=== PATIENT | male | born 1955 | race Caucasian/White ===

== ENCOUNTER → 2017-01-30 | Outpatient (CLI) | payer OTHER ==
[~2017-01-30] MED LIST: CRD2 PO; FERR1TAB23 OR; FISHOIL PO; FLUT0.0529 NAE; GLUCTAB7 PO; LISI-729 PO; MULT-506 PO; NAPR220T40 PO; PSYL1.7W PO
[2017-01-30 10:43] LABS: BLOOD UREA NITROGEN 11 mg/dl (7-18); CALCIUM 8.3 mg/dl (8.5-10.1); CARBON DIOXIDE 28 mmol/L (21-32); CHLORIDE 109 mmol/L (98-107); CREATININE 0.85 mg/dl (0.60-1.40); GLUCOSE 92 mg/dl (70-99); SODIUM 142 mmol/L (136-145)
[2017-01-30 10:46] LABS: CHOLESTEROL 205 mg/dl (0-200); CHOLESTEROL/HDL RATIO 3.8; HDL CHOLESTEROL 54 mg/dl; LDL CHOLESTEROL CALCULATED 126 mg/dl; TRIGLYCERIDES 127 mg/dl (0-150); VERY LOW DENSITY LIPOPROT CALC 25 mg/dl
== END | disposition home or self-care (01) ==
LOC: C.LAB 09:22
PROVIDERS: ATTEND Family Medicine
DX: I10 Essential (primary) hypertension (principal)

== ENCOUNTER → 2017-06-11 | Outpatient (CLI) | payer OTHER ==
--- NOTE | 2017-06-11 14:28 | DIAGNOSTIC IMAGING REPORT ---
KUB CLINICAL HISTORY: N20.0 [id number] nephrocalcinosis COMPARISON STUDY: 03/19/2016 FINDINGS: Unchanging bilateral nephrocalcinosis. No new or interval findings. Nonobstructive bowel pattern. Unchanging postoperative changes low lumbar spine. IMPRESSION: Stable bilateral nephrocalcinosis. No new or interval finding. The above report was generated using voice recognition software. It may contain grammatical, syntax or spelling errors. Electronically signed by: West Montoya M.D. 06/11/2017 2:27 PM Dictated Date/Time: 06/11/2017 2:25 PM
== END | disposition home or self-care (01) ==
LOC: C.RAD 14:03
PROVIDERS: ATTEND Urology
DX: N20.0 Calculus of kidney (principal)

== ENCOUNTER → 2017-06-25 | Outpatient (CLI) | payer OTHER ==
--- NOTE | 2017-06-25 10:38 | DIAGNOSTIC IMAGING REPORT ---
ULTRASOUND KIDNEYS AND BLADDER CLINICAL HISTORY: Nephrolithiasis. COMPARISON STUDY: KUB dated 06/11/2017. TECHNIQUE: Real-time, grayscale, and color flow sonography of the kidneys and bladder is performed. Images are reviewed in the transverse and longitudinal planes. FINDINGS: Kidneys: The kidneys are normal in size and echotexture. The right kidney measures 12.5 x 6.0 x 6.2 cm and the left kidney measures 12.0 x 6.1 x 5.6 cm. There is no hydronephrosis. A 5 mm nonobstructing calculus is suggested in the left kidney. No shadowing right renal calculi are identified. A 1.4 cm cyst is incidentally noted on the right. A septated cyst versus 2 adjacent cysts in the left kidney measures up to 6.2 cm. There is no sonographic evidence of solid mass lesion. No perinephric fluid is identified. Bladder: The prostate gland appears mildly enlarged and there is median lobe hypertrophy. The bladder wall is thickened and trabeculated consistent with chronic outlet obstruction. Bilateral ureteral jets were seen. IMPRESSION: 1. The kidneys are normal in size and without hydronephrosis. 2. A nonobstructing left renal calculus is noted. 3. Prostatomegaly with evidence of chronic bladder outlet obstruction. Electronically signed by: Teo Calderon M.D. 06/25/2017 10:36 AM Dictated Date/Time: 06/25/2017 10:33 AM
== END | disposition home or self-care (01) ==
LOC: C.ULTR 10:00
PROVIDERS: ATTEND Urology
DX: N20.0 Calculus of kidney (principal); N40.1 Benign prostatic hyperplasia with lower urinary tract symptoms

== ENCOUNTER → 2017-11-13 | Outpatient (CLI) | payer OTHER | END | disposition home or self-care (01) | LOC: C.LAB 08:51 | PROVIDERS: ATTEND Family Medicine | DX: E78.5 Hyperlipidemia, unspecified (principal) ==

== ENCOUNTER 2021-06-20 22:01 | Inpatient (IN) ==
[2021-06-20] MEDS ORDERED: SODIUM CHLORIDE 0.9% 1000ML 1,000 ML IV ONE ×2 (22:23→22:24)
[2021-06-20] MEDS ORDERED: STAT IV Infusion **Titration per Protocol STA (22:23)
[2021-06-20] MEDS ORDERED: dilTIAZem HCl 5 MG/ML 5 ML VIAL IV ONE (22:24)
[2021-06-20] MEDS ORDERED: ONDANSETRON INJ 2 MG/ML 2 ML VIAL IV STA (22:27)
[2021-06-20] MEDS ORDERED: ASPIRIN CHEW 324 MG PO STA (22:29)
[2021-06-20] MEDS ORDERED: dilTIAZem HCL 125 MG in DEXTROSE 5% 100 ML IV SCH (22:30)
[2021-06-20 22:57] LABS: iSTAT Creatinine 1.1 mg/dl (0.6-1.3); iSTAT Hemoglobin 10.9 g/dl (14.0-18.0); iSTAT Ionized Calcium 1.14 mmol/l (1.12-1.32)
[2021-06-20 23:01] LABS: INR 1.1 (0.9-1.1); Partial Thromboplastin Ratio 0.8; Partial Thromboplastin Time 21.5 Seconds (21.0-31.0); Prothrombin Time 10.8 Seconds (9.0-12.0)
[2021-06-20 23:04] LABS: Hematocrit (blood only) 31.9 % (42-52); Hemoglobin 9.1 g/dL (14.0-18.0); Mean Corpuscular Hemoglobin 19.2 pg (25-34); Mean Corpuscular Hgb Conc 28.5 g/dL (32-36); Mean Corpuscular Volume 67.3 fL (80-100); Mean Platelet Volume 8.7 fL (7.4-10.4); Platelet Count 442 K/uL (130-400); RDW Coefficient of Variation 17.5 % (11.5-14.5); RDW Standard Deviation 43.1 fL (36.4-46.3); Red Blood Count 4.74 M/uL (4.7-6.1); White Blood Count 9.54 K/uL (4.8-10.8)
[2021-06-20 23:07] LABS: Alanine Aminotransferase 37 U/L (12-78); Albumin Level 3.8 gm/dl (3.4-5.0); Aspartate Aminotransferase 21 U/L (15-37); BUN Creatinine Ratio 18.4 (10-20); Basophils # (auto) 0.06 K/uL (0-0.2); Basophils % (auto) 0.6 %; Bilirubin Direct 0.2 mg/dl (0-0.2); Blood Urea Nitrogen 22 mg/dl (7-18); Calcium 9.1 mg/dl (8.5-10.1); Carbon Dioxide 23 mmol/L (21-32); Chloride 106 mmol/L (98-107); Creatinine Clr Calc Pharmacy 78.6 ml/min; Echinocytes 1+; Est GFR (African American) 76.4 ml/min; Glucose 103 mg/dl (70-99); Hypochromasia Present; Immature Granulocytes # (auto) 0.02 K/uL (0.00-0.02); Immature Granulocytes % (auto) 0.2 %; Lipase 121 U/L (73-393); Lymphocytes # (auto) 1.25 K/uL (1.2-3.4); Lymphocytes % (auto) 13.1 %; Magnesium 1.8 mg/dl (1.8-2.4); Monocytes # (auto) 1.35 K/uL (0.11-0.59); Monocytes % (auto) 14.2 %; Neutrophils # (auto) 6.76 K/uL (1.4-6.5); Neutrophils % (auto) 70.9 %; Ovalocytes 1+; Potassium 3.9 mmol/L (3.5-5.1); Sodium 136 mmol/L (136-145)
[2021-06-20 23:12] LABS: Alkaline Phosphatase 62 U/L (45-117); Bilirubin,Total 0.7 mg/dl (0.2-1); Total Protein 7.3 gm/dl (6.4-8.2); Troponin I < 0.015 ng/ml (0-0.045)
--- NOTE | 2021-06-20 23:23 | Emergency Department Note ---
History of Present Illness General Chief Complaint: Weakness Stated Complaint: WEAK, TIRED, SOB Time Seen by Provider: 06/20/21 22:20 History of Present Illness Provider Complaint: + palpitations Onset (ago): 1 day(s) Duration: + Worsening Severity: moderate Context: + occurred during exertion Arrhythmia history: no atrial fibrillation, no SVT, no on anti-coagulants, no pacemaker, no AICD, no history of ablation or no history of electrical cardioversion Associated symptoms: + shortness of breath, + near-syncope and + nausea; no chest pain, no syncope, no vomiting, no anxiety, no diaphoresis, no cough, no paresthesias, no muscle cramps or no other HPI narrative: Recent kidney stone surgery on Saturday. Has been on liquid diet since then. States he might be dehydrated. No history of any cardiac problems. Home Medications Medication Instructions Recorded Confirmed Type atorvastatin 20 mg tablet 20 mg PO QAM 02/09/19 06/20/21 History doxazosin 2 mg tablet (Cardura) 2 mg PO QPM 02/09/19 06/20/21 History glucosamine-chondroitin 167 mg-133 1 cap PO QAM 02/09/19 06/20/21 History mg capsule lisinopril 5 mg tablet (Zestril) 5 mg PO QAM 02/09/19 06/20/21 History multivitamin 1 tab PO QAM 02/09/19 06/20/21 History omega 8-ylz-gpu-fish oil 1,000 mg 1 cap PO QAM 02/09/19 06/20/21 History (120 mg-180 mg) capsule (Fish Oil) ferrous sulfate 325 mg (65 mg 325 mg PO Q2D 03/20/21 06/20/21 History iron) tablet (iron) naproxen sodium 220 mg capsule 220 mg PO BID PRN 03/20/21 06/20/21 History (Aleve) psyllium husk 0.4 gram capsule 0.8 g PO QAM 03/20/21 06/20/21 History (Metamucil) ciprofloxacin HCl 500 mg tablet 500 mg PO BID #6 tab 06/16/21 06/20/21 Rx (Cipro) tramadol 50 mg tablet 50 mg PO Q6H PRN #20 tab 06/16/21 06/20/21 Rx oxybutynin chloride 5 mg tablet 5 mg PO DAILY #14 tab 06/19/21 06/20/21 Rx Allergies Allergy/AdvReac Type Severity Reaction Status Date / Time codeine Allergy Intermediate Swelling Verified 06/20/21 22:15 Past Med/Surg History Medical History Anemia felt r/t hematuria, no known hx of blood transfusion BPH (benign prostatic hyperplasia) GERD (gastroesophageal reflux disease) Hematuria Hiatal hernia Hyperlipidemia Hypertension Kidney stone Multiple Osteoarthritis Renal cyst R/L (under surveillance) Seasonal allergies Surgical History Fusion of spine Lumbar H/O lumbar discectomy x2 History of arthroscopy Right knee History of bladder surgery (~04/2021) cystolithopaxy History of colonoscopy History of cystoscopy History of esophagogastroduodenoscopy (EGD) History of lithotripsy Multiple History of mandibular surgery + jaw clicking (no locking) History of repair of rotator cuff R/L; Left Shoulder Arthroscopy, Rotator Cuff Repair (04/21/20): LMA#5 + PNB at [facility] [place] History of tonsillectomy History of tooth extraction Family History Father Diabetes Mother Diabetes Other No family history of adverse response to anesthesia Social History Smoking Status: Never smoker Second Hand Exposure: Yes ( KID); Hx Alcohol Use: Yes Alcohol type: wine and hard liquor Hx Substance Use: No Preferred Language: Singaporean Communication Ability: Effective Hearing Ability: Normal [employer] Required: No Beliefs That Will Affect Care: None marital status: Current Living Situation: Spouse current occupational status: employed Feels Safe at Home: Yes Assistive Devices: Glasses Review of Systems A total of 10 systems reviewed and were otherwise negative Physical Exam Vital Signs: Vital Signs - 24 hr 06/20/21 22:05 Temperature 36.6 C Temperature Source Temporal Artery Sc an Pulse Rate 129 H Pulse Rhythm Regular Pulse Strength Normal Respiratory Rate 18 Respiratory Effort / Characteristics Non-Labored Sponta neous Respiratory Depth Normal Respiratory Patter n Regular Blood Pressure 105/66 Blood Pressure Natalee n 79 Blood Pressure Pos ition Sitting Pulse Oximetry 99 Oxygen Delivery Me thod Room Air Sepsis Recent Feve r Within 48 Hours No Sepsis New/Unexpla ined Change in Men christen Status N/A Sepsis Action Take n by Nursing No Action Required Physical Exam: Physical Exam GENERAL: He is oriented to person, place, and time. He appears well-developed and well-nourished. He does not appear distressed. HENT: Exam performed. - Head: Normocephalic and atraumatic. - Right Ear: External ear normal. No mastoid tenderness. - Left Ear: External ear normal. No mastoid tenderness. - Mouth/Throat: The oropharynx is clear and moist. No trismus in the jaw. No dental abscesses or uvula swelling. No oropharyngeal exudate or tonsillar abscesses. EYES: Conjunctivae and EOM are normal. Pupils are equal, round, and reactive to light. Right eye exhibits no discharge. Left eye exhibits no discharge. No scleral icterus. NECK: Normal range of motion. Neck supple. No JVD present. No spinous process tenderness present. No carotid bruit present. No rigidity. No tracheal deviation and normal range of motion present. No Brudzinski's sign and no Kernig's sign noted. CV: Tachycardic rate, irregular rhythm, normal heart sounds and intact distal pulses. There is no peripheral edema. Palpable radial pulses bue. PULM/CHEST: Effort normal and breath sounds normal. No respiratory distress. No stridor. He has no wheezes. He has no rales. - Chest Wall: He exhibits no tenderness. ABD: The abdomen is soft. Bowel sounds are normal. He has no distension. No mass is present. There is no tenderness. There is no rebound, no guarding, no Her's sign and no tenderness at McBurney's point. Rovsig negative. MUSC/SKEL: Normal range of motion. There is no peripheral edema, tenderness or deformity. LYMPH: No cervical adenopathy. NEURO: He is alert and oriented to person, place, and time. He has normal strength. No cranial nerve deficit or sensory deficit. Coordination and gait normal. GCS eye subscore is 4. GCS verbal subscore is 5. GCS motor subscore is 6. Cerebellar tests wnl. SKIN: Skin is warm and dry. He is not diaphoretic. PSYCH: He has a normal mood and affect. Behavior is normal. Judgment and thought content normal. Course Course 222: The patient was evaluated in room B9. A complete history and physical exam was performed Cardiac monitoring: An order was placed for continuous cardiac monitoring. The monitor shows a rate of 90-130 with atrial fibrilation rhythm Patient might be dehydrated as he has been on a liquid diet and had a recent surgery. IV fluids will be ordered for the patient. Patient will started on Cardizem drip For A. fib rate control EMR reviewed. 4 days ago in June 16, 2021 the patient has cystoscopy ureteral nephroscopy retrograde pyelogram and laser destruction of the stone and left insertion of stent catheter by Dr. Arango. Given the patient's recent surgery, will obtain CT of the chest rule out PE as well as CT of the abdomen for his newfound atrial fibrillation 2330: Patient's heart rate is better controlled on the Cardizem drip. Labs are within normal limits. Awaiting CT scans. 2350: Vital signs stable on Cardizem drip. CTA of the chest negative for PE. CT of the abdomen does show that the stent is in appropriate position. Patient's CHADS2 score is 1 for hypertension. No need for heparin at this time. Patient was given aspirin. [facility] onset A. fib. Will discuss case with Dr. Lopez Administered Medications Diltiazem HCl 125 mg/ Dextrose 125 mls @ 5 mls/hr IV .Q24H [facility]; Protocol Stop: 07/20/21 22:29 Last Admin: 06/20/21 22:47 Dose: 5 mg/hr, 5 mls/hr Documented by: [id number] Cosigned by: [id number] Discontinued Medications Aspirin (Aspirin Chew 324 Mg) 324 mg PO NOW STA Stop: 06/20/21 22:30 Last Admin: 06/20/21 23:17 Dose: 324 mg Documented by: [id number] Ioversol (Optiray 320 125ml) 125 ml IV ONCE ONE Stop: 06/20/21 23:27 Last Admin: 06/20/21 23:26 Dose: 118 ml Documented by: [id number] Ondansetron HCl (Ondansetron Inj 2 Mg/Ml 2 Ml Vial) 4 mg IV NOW STA Stop: 06/20/21 22:28 Last Admin: 06/20/21 22:54 Dose: 4 mg Documented by: [id number] Medical Decision Making Laboratory Data Result diagrams: 06/20/21 22:30 06/20/21 22:30 Lab Results 06/20/21 06/20/21 06/20/21 Range/Units 22:30 22:30 22:30 WBC 9.54 (4.8-10.8) K/uL RBC 4.74 (4.7-6.1) M/uL Hgb 9.1 L (14.0-18.0) g/dL POC Hgb (14.0-18.0) g/dl Hct 31.9 L (42-52) % POC Hct (42-52) % MCV 67.3 L (80-100) fL MCH 19.2 L (25-34) pg MCHC 28.5 L (32-36) g/dL RDW Std Deviation 43.1 (36.4-46.3) fL RDW Coeff of Cj 17.5 H (11.5-14.5) % Plt Count 442 H (130-400) K/uL MPV 8.7 (7.4-10.4) fL Immature Gran % (Auto) 0.2 % Neut % (Auto) 70.9 % Lymph % (Auto) 13.1 % Deuel % (Auto) 14.2 % Eos % (Auto) 1.0 % Baso % (Auto) 0.6 % Neut # (Auto) 6.76 H (1.4-6.5) K/uL Lymph # (Auto) 1.25 (1.2-3.4) K/uL Deuel # (Auto) 1.35 H (0.11-0.59) K/uL Eos # (Auto) 0.10 (0-0.5) K/uL Baso # (Auto) 0.06 (0-0.2) K/uL Immature Gran # (Auto) 0.02 (0.00-0.02) K/uL Hypochromasia Present Ovalocytes 1+ Echinocytes 1+ PT 10.8 (9.0-12.0) Seconds INR 1.1 (0.9-1.1) APTT 21.5 (21.0-31.0) Seconds PTT Ratio 0.8 POC Sodium (135-144) mmol/L Sodium 136 (136-145) mmol/L POC Potassium (3.3-5.0) mmol/L Potassium 3.9 (3.5-5.1) mmol/L POC Chloride (101-112) mmol/L Chloride 106 (98-107) mmol/L Carbon Dioxide 23 (21-32) mmol/L POC Total CO2 (24-31) mmol/L Anion Gap 7.0 (3-11) POC Anion Gap (16-25) mmol/L POC BUN (7-18) mg/dl BUN 22 H (7-18) mg/dl Creatinine 1.17 (0.6-1.4) mg/dl POC Creatinine (0.6-1.3) mg/dl Est Cr Clr Drug Dosing 78.6 ml/min Est GFR ( Amer) 76.4 ml/min Est GFR (Non-Af Amer) 66.0 ml/min BUN/Creatinine Ratio 18.4 (10-20) Glucose 103 H (70-99) mg/dl POC Glucose (other) (70-99) mg/dl Lactate (0.4-2.0) mmol/L Calcium 9.1 (8.5-10.1) mg/dl POC Ioniz Calcium Tiki (1.12-1.32) mmol/l Magnesium 1.8 (1.8-2.4) mg/dl Total Bilirubin 0.7 (0.2-1) mg/dl Direct Bilirubin 0.2 (0-0.2) mg/dl AST 21 (15-37) U/L ALT 37 (12-78) U/L Alkaline Phosphatase 62 (45-117) U/L Troponin I < 0.015 (0-0.045) ng/ml Total Protein 7.3 (6.4-8.2) gm/dl Albumin 3.8 (3.4-5.0) gm/dl Lipase 121 (73-393) U/L COVID-19 Eval Order 06/20/21 06/20/21 06/20/21 Range/Units 22:30 22:45 23:18 WBC (4.8-10.8) K/uL RBC (4.7-6.1) M/uL Hgb (14.0-18.0) g/dL POC Hgb 10.9 L (14.0-18.0) g/dl Hct (42-52) % POC Hct 32 L (42-52) % MCV (80-100) fL MCH (25-34) pg MCHC (32-36) g/dL RDW Std Deviation (36.4-46.3) fL RDW Coeff of Cj (11.5-14.5) % Plt Count (130-400) K/uL MPV (7.4-10.4) fL Immature Gran % (Auto) % Neut % (Auto) % Lymph % (Auto) % Deuel % (Auto) % Eos % (Auto) % Baso % (Auto) % Neut # (Auto) (1.4-6.5) K/uL Lymph # (Auto) (1.2-3.4) K/uL Deuel # (Auto) (0.11-0.59) K/uL Eos # (Auto) (0-0.5) K/uL Baso # (Auto) (0-0.2) K/uL Immature Gran # (Auto) (0.00-0.02) K/uL Hypochromasia Ovalocytes Echinocytes PT (9.0-12.0) Seconds INR (0.9-1.1) APTT (21.0-31.0) Seconds PTT Ratio POC Sodium 136 (135-144) mmol/L Sodium (136-145) mmol/L POC Potassium 4.0 (3.3-5.0) mmol/L Potassium (3.5-5.1) mmol/L POC Chloride 102 (101-112) mmol/L Chloride (98-107) mmol/L Carbon Dioxide (21-32) mmol/L POC Total CO2 20 L (24-31) mmol/L Anion Gap (3-11) POC Anion Gap 19.0 (16-25) mmol/L POC BUN 22 H (7-18) mg/dl BUN (7-18) mg/dl Creatinine (0.6-1.4) mg/dl POC Creatinine 1.1 (0.6-1.3) mg/dl Est Cr Clr Drug Dosing ml/min Est GFR ( Amer) ml/min Est GFR (Non-Af Amer) ml/min BUN/Creatinine Ratio (10-20) Glucose (70-99) mg/dl POC Glucose (other) 106 H (70-99) mg/dl Lactate 1.9 (0.4-2.0) mmol/L Calcium (8.5-10.1) mg/dl POC Ioniz Calcium Tiki 1.14 (1.12-1.32) mmol/l Magnesium (1.8-2.4) mg/dl Total Bilirubin (0.2-1) mg/dl Direct Bilirubin (0-0.2) mg/dl AST (15-37) U/L ALT (12-78) U/L Alkaline Phosphatase (45-117) U/L Troponin I (0-0.045) ng/ml Total Protein (6.4-8.2) gm/dl Albumin (3.4-5.0) gm/dl Lipase (73-393) U/L COVID-19 Eval Order Covid19 at [facility] Imaging Data Radiologist's Impression: PreliminaryFindingsOnly See Final Report For Complete Findings CTACHEST: No pulmonaryembolism. Mildlyectatic ascending thoracic aorta measuring up to 4 cm. No dissection. Large hiatal hernia. No acute abnormalitywithin the lungs. Basilar scarring/atelectasis. Radiologist: Elmer Harman MD Study ready at 23:34 and initial results transmitted at 23:41 PreliminaryFindingsOnly See Final Report For Complete Findings CT ABDOMEN & PELVIS Without Contrast: Nephroureteral stent in place on the left and appears appropriatelypositioned. Moderate dilatation of the renal pelvis versus a prominent parapelvic cyst. Fewstoneswithin the left renal collecting system. There are also a fewstones adjacent to the stent within the left ureter, proximallymeasuring 4 mm (image [id number]) and within the mid ureter measuring 3.5 mm(image [id number]). Fewtinystones layering dependentlywithin the bladder. Fat stranding along the left ureter. Fat-containing inguinal hernias. Large hiatal hernia. Colonic diverticulosis. Radiologist: Elmer Harman MD Study ready at 23:30 and initial results transmitted at 23:36 ECG Data Indication: palpitations Rate (beats per minute): 99 Rhythm: atrial fibrillation Findings: no ST depression, no ST elevation or no prolonged QT MDM Narrative 2220: The patient was evaluated in room B9. A complete history and physical exam was performed Cardiac monitoring: An order was placed for continuous cardiac monitoring. The monitor shows a rate of 90-130 with atrial fibrilation rhythm Patient might be dehydrated as he has been on a liquid diet and had a recent surgery. IV fluids will be ordered for the patient. Patient will started on Cardizem drip For A. fib rate control EMR reviewed. 4 days ago in June 16, 2021 the patient has cystoscopy ureteral nephroscopy retrograde pyelogram and laser destruction of the stone and left insertion of stent catheter by Dr. Arango. Given the patient's recent surgery, will obtain CT of the chest rule out PE as well as CT of the abdomen for his newfound atrial fibrillation 2330: Patient's heart rate is better controlled on the Cardizem drip. Labs are within normal limits. Awaiting CT scans. 2350: Vital signs stable on Cardizem drip. CTA of the chest negative for PE. CT of the abdomen does show that the stent is in appropriate position. Patient's CHADS2 score is 1 for hypertension. No need for heparin at this time. Patient was given aspirin. [facility] A. fib. Will discuss case with Dr. Lopez Impression & Plan Atrial fibrillation with RVR Critical Care Time Critical Care Time: Yes Total Critical Care Time: 53 I have personally spent greater than 53 minutes of critical care time in the direct management of this patient. This includes bedside care, interpretation of diagnostic studies, and testing, discussion with consultants, patient, and family members, and other required patient management activities. This 53 minutes is in excess of all separately billable procedures. Discharge Plan Visit Data Chief Complaint: Weakness Stated Complaint: WEAK, TIRED, SOB ED Provider: Emile Segundo Discharge Problem: Atrial fibrillation with RVR Patient Disposition: Admitted As Inpatient Forms Stand Alone Forms: My [facility] Prescriptions Prescriptions: No Action oxybutynin chloride 5 mg tablet 5 mg PO DAILY Qty: 14 RF: 0 multivitamin Tablet 1 tab PO QAM RF: 0 atorvastatin 20 mg Tablet 20 mg PO QAM RF: 0 lisinopril [Zestril] 5 mg tablet 5 mg PO QAM RF: 0 doxazosin [Cardura] 2 mg tablet 2 mg PO QPM RF: 0 omega 3-sim-qyt-fish oil [Fish Oil] 1,000 mg (120 mg-180 mg) Capsule 1 cap PO QAM RF: 0 glucosamine-chondroitin 167-133 mg Capsule 1 cap PO QAM RF: 0 ciprofloxacin HCl [Cipro] 500 mg tablet 500 mg PO BID Qty: 6 RF: 0 tramadol 50 mg tablet 50 mg PO Q6H PRN (Reason: pain) Qty: 20 RF: 0 ferrous sulfate [iron] 325 mg (65 mg iron) Tablet 325 mg PO Q2D RF: 0 naproxen sodium [Aleve] 220 mg Capsule 220 mg PO BID PRN (Reason: Pain) RF: 0 psyllium husk [Metamucil] 0.4 gram Capsule 0.8 g PO QAM RF: 0 Referrals Referrals: Yuval Hammonds MD [Primary Care Provider] -
[2021-06-20] MEDS ORDERED: OPTIRAY 320 125ml IV ONE (23:26)
[2021-06-21 00:21] LABS: Appearance Urine Clear (Clear); Bacteria Urine Automated Negative (Negative); Bilirubin Urine Negative (Negative); Blood Urine 3+ (Negative); Color Urine Yellow; Glucose Urine UA Negative (Negative); Ketones Urine Negative (Negative); Leukocyte Esterase Urine 1+ (Negative); Nitrite Urine Negative (Negative); Protein Urine 1+ (Negative); RBC Urine Automated >30 /hpf (0-4); Specific Gravity Urine 1.039 (1.000-1.030); Urobilinogen Urine Negative (Negative); pH Urine 6.5 (4.5-7.5)
[2021-06-21] MEDS: SODIUM CHLORIDE 0.9% 1000ML 1,000 ML IV SCH ×2 (02:00→09:47)
[2021-06-21] MEDS ORDERED: ACETAMINOPHEN 325 MG TAB PO PRN (02:08)
[2021-06-21] MEDS ORDERED: NITROGLYCERIN SL 0.4 MG/TAB TAB SL PRN (02:08)
[2021-06-21] MEDS ORDERED: ONDANSETRON INJ 2 MG/ML 2 ML VIAL IV PRN (02:08)
[2021-06-21] MEDS ORDERED: traMADol HCL 50 MG TABLET PO PRN (02:08)
--- NOTE | 2021-06-21 03:14 | History and Physical Report ---
DATE OF ADMISSION: 06/21/2021. CHIEF COMPLAINT: Weakness and palpitation. HISTORY OF PRESENT ILLNESS: This is a 65-year-old male with past medical history significant for hyperlipidemia, hypertension, diverticulosis of large intestine, BPH, recurrent kidney stones, bladder stones, iron deficiency anemia due to chronic blood loss, Presents with rapid AFib. The patient works in [employer] here. The patient states last Blaze he had a lithotripsy, he had stent placement on the left side. He had bleeding for a couple of days and he was on liquid diet as recommended by urology for a few days and today is the first time he had solid food. 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 When he turned back, he felt dizzy, palpitations, weak, nauseous, not feeling good and got admitted to the ER and found to be in rapid atrial fibrillation. With the Cardizem drip, his heart rate improved. He is feeling better. He also had a left lower abdominal pain after his lithotripsy when he was trying to micturate and Urology prescribed him oxybutynin, that is helping him, and he has a followup appointment with urology at the end of this month. Denies any fevers. No cough, no chest pain, no shortness of breath, no headache, no blurred visions, no earache, no runny nose, no sore throat, no dysphagia. Currently, no nausea. Was constipated for a few days, but currently moving his bowels okay. Denies any blood in the stool or black stool. Denies any hematuria currently. No swelling in the legs. ALLERGIES: CODEINE. PAST MEDICAL HISTORY: As mentioned above. PAST SURGICAL HISTORY: Left shoulder arthroscopy, colonoscopy with biopsy, EGDs with biopsy, lumbar hemilaminectomy, oral surgery, tonsillectomy, spinal fusion surgery. MEDICATIONS: The patient is on atorvastatin 20 mg p.o. a.m., Cardura 2 mg p.o. p.m., ferrous sulfate 325 mg p.o. q. every other day, glucosamine chondroitin 1 capsule p.o. a.m., lisinopril 5 mg p.o. a.m., multivitamin 1 tablet p.o. a.m., naproxen 220 mg p.o. b.i.d. p.r.n., omega fish oil 1 capsule p.o. a.m., oxybutynin 5 mg p.o. daily, Metamucil 0.8 mg p.o. a.m., tramadol 50 mg p.o. q. 6 hours p.r.n. FAMILY HISTORY: Significant for father has diabetes and hypertension, uncle has diabetes. SOCIAL HISTORY: . No smoking. Alcohol rarely. No drug use. REVIEW OF SYSTEMS: As per HPI. Rest of the review of systems is negative. PHYSICAL EXAMINATION: GENERAL: The patient is of moderate build, not in acute distress. VITAL SIGNS: Temperature 36.6, pulse when he came in was 120, it is currently in 90s, respiratory rate 13, blood pressure 122/88, oxygen 100% on room air. HEENT: Pupils equal, round and reactive to light. Oral mucosa moist. NECK: No JVD, no neck masses. CARDIOVASCULAR: S1 and S2 heard. Irregularly irregular rhythm. No murmur, no gallop. RESPIRATORY SYSTEM: Normal AP diameter. No accessory muscle use. No wheezing, no crackles. ABDOMEN: Soft, bowel sounds present, nontender, no distention. CENTRAL NERVOUS SYSTEM: Cranial nerves II-XII grossly intact, nonfocal. EXTREMITIES: No edema, no erythema. LABORATORY DATA: WBC 9.5, hemoglobin 9.1, hematocrit 31.9, platelets 442. PT 10.8, INR 1.1, APTT 21.5. Sodium 136, potassium 3.9, chloride 106, CO2 of 23, BUN 22, creatinine 1.1, serum glucose 103. Lactate 1.9, calcium 9.1, magnesium 1.8, total bilirubin 0.7, direct bilirubin 0.2, AST 71, ALT 37, alkaline phosphatase 62. Troponin I less than 0.015. Lipase 121. Urinalysis, +1 leukocyte esterase, urine bacteria negative. SARS-CoV-2 PCR negative. IMAGING DATA: CT of the chest, preliminary report unremarkable. CT of abdomen and pelvis, preliminary report, left ureter stent, otherwise no acute findings. ASSESSMENT AND PLAN: This is a 65-year-old male who presents with new-onset atrial fibrillation. 1. New-onset rapid atrial fibrillation: Rate is controlled with IV Cardizem. [id number] score is 1 for hypertension. ER gave aspirin, which will continue. Continue Cardizem drip. Will follow serial enzymes. Will follow the repeat labs. Will follow the echocardiogram.Monitor in tele. Consult cardiology in a.m. for further recommendations. 2. History of iron deficiency anemia with iron deficiency anemia from blood loss: Follows with PCP and on iron supplements.Says had EGD and colonoscopy 3 to 4 years ago, which was unremarkable, and then was on iron supplements and again one year ago he was found to have anemia thought to be from blood loss from his kidney stones. Follow up with PCP. 3. Recurrent kidney stones: Recent lithotripsy and stent placement on the left side. Follow up with urology. 4. Hypertension: Continue lisinopril. 5. Benign prostatic hypertrophy: Continue Cardura. 6. Hyperlipidemia: Continue statin. 7. Deep venous thrombosis prophylaxis: Lovenox. DISPOSITION: Closely monitor in the tele floor. Level 1 full code. Expect to discharge home and follow with family doctor. Job ID: [id number] [facility]Ann
[2021-06-21 05:35] LABS: Hematocrit (blood only) 28.9 % (42-52); Hemoglobin 8.1 g/dL (14.0-18.0); Mean Corpuscular Hemoglobin 19.3 pg (25-34); Mean Platelet Volume 9.1 fL (7.4-10.4); Platelet Count 411 K/uL (130-400); RDW Coefficient of Variation 17.5 % (11.5-14.5); RDW Standard Deviation 44.3 fL (36.4-46.3); Red Blood Count 4.19 M/uL (4.7-6.1); White Blood Count 7.47 K/uL (4.8-10.8)
[2021-06-21 05:54] LABS: Basophils # (auto) 0.03 K/uL (0-0.2); Basophils % (auto) 0.4 %; Eosinophils # (auto) 0.22 K/uL (0-0.5); Eosinophils % (auto) 2.9 %; Hypochromasia Present; Immature Granulocytes # (auto) 0.01 K/uL (0.00-0.02); Immature Granulocytes % (auto) 0.1 %; Lymphocytes # (auto) 1.49 K/uL (1.2-3.4); Lymphocytes % (auto) 19.9 %; Microcytosis Present; Monocytes # (auto) 1.34 K/uL (0.11-0.59); Monocytes % (auto) 17.9 %; Neutrophils # (auto) 4.38 K/uL (1.4-6.5); Neutrophils % (auto) 58.8 %; Ovalocytes 1+; Polychromasia 1+; Tear Drop Cells Occasional
[2021-06-21 06:12] LABS: BUN Creatinine Ratio 19.6 (10-20); Blood Urea Nitrogen 16 mg/dl (7-18); Calcium 8.2 mg/dl (8.5-10.1); Carbon Dioxide 25 mmol/L (21-32); Chloride 110 mmol/L (98-107); Est GFR (Non-African American) 93.2 ml/min; Glucose 126 mg/dl (70-99); Magnesium 2.1 mg/dl (1.8-2.4); Potassium 3.7 mmol/L (3.5-5.1); Sodium 138 mmol/L (136-145); Troponin I < 0.015 ng/ml (0-0.045)
[2021-06-21] MEDS ORDERED: ENOXAPARIN INJ 40 MG/0.4 ML SYR SQ SCH (08:00)
--- NOTE | 2021-06-21 08:20 | CT Scan Report ---
CT angio chest PE protocol HISTORY: 65 years-old Male with ro PE. Acute dizziness with tachycardia TECHNIQUE: Multiple CTA images of the chest were obtained after the intravenous administration of 118 ml Optiray. Coronal and sagittal MIPS were obtained from the axial data set and were submitted for review. All measurements were obtained according to NASCET criteria. A dose lowering technique was u tilized adhering to the principles of ALARA. COMPARISON: CT abdomen and pelvis of same day, chest CT 06/03/2015 FINDINGS: CTA: Mild cardiomegaly. No pericardial effusion. Mild coronary artery calcifications. Mild fusiform dilati on of the ascending thoracic aorta measuring 4.0 cm previously measured 3.7 cm. Otherwise unremarkabl e appearance of the thoracic aorta. Unremarkable pulmonary artery. No pulmonary emboli identified. CT CHEST: Unremarkable thyroid. No adenopathy. No pneumothorax, pleural effusion, airspace consolidation or ove rt pulmonary edema. Mild subsegmental bibasilar atelectasis/scarring, left greater than right. There are no suspicious pulmonary nodules or masses identified. The central airways are patent. Large hiatal hernia. Mild wall thickening of the mid and distal esophagus. 6 mm hypodensity of the he patic dome is too small to characterize, possibly a cyst. Similar-appearing 8 mm hypodense focus of t he left hepatic lobe. Unremarkable soft tissues. There is no acute fracture. Degenerative changes of the spine and shoulders. A left ureteral stent is noted on the handle bender localizer images. IMPRESSION: 1. No acute intrathoracic abnormality. No pulmonary emboli. 2. Cardiomegaly with fusiform mild dilation of the ascending thoracic aorta measuring 4.0 cm. 3. Large hiatal hernia. 4. Left ureteral stent. ACT 112: Negative or not required by law. The above report was generated using voice recognition software. It may contain grammatical, syntax o r spelling errors. Electronically signed by: Renan Jimenez M.D. 06/21/2021 8:19 AM
[2021-06-21] MEDS: lisinopril 5 MG TAB PO SCH (08:27)
[2021-06-21] MEDS: MULTIVITAMIN TAB PO SCH (08:27)
[2021-06-21] MEDS: OXYBUTYNIN CHLORIDE 5 MG TAB PO SCH (08:27)
[2021-06-21] MEDS: ATORVASTATIN 20 MG TAB PO SCH (08:27)
[2021-06-21] MEDS: PSYLLIUM 58.6% POWDER PACKET PO SCH (08:27)
--- NOTE | 2021-06-21 08:31 | CT Scan Report ---
CT SCAN OF THE ABDOMEN AND PELVIS WITHOUT CONTRAST CLINICAL HISTORY: weakness recent ureter stent COMPARISON STUDY: February 08, 2021 TECHNIQUE: CT scan of the abdomen and pelvis was performed from the lung bases to the proximal femurs . Images are reviewed in the axial, sagittal, and coronal planes. IV contrast was not administered fo r this examination. A dose lowering technique was utilized adhering to the principles of ALARA. CT DOSE: 2068.79 mGy.cm FINDINGS: Lower chest: Redemonstration of the large hiatal hernia and compressive atelectasis within left lower lobe. Few linear densities are seen within the right middle lobe and might represent segmental atele ctasis or scarring. Liver: The unenhanced liver is normal in size, contour, and attenuation. There is no intrahepatic jaren iary ductal dilatation. 7 mm hypoattenuating nodule is seen within left lobe of the liver (3/95) Gallbladder: Unremarkable. Spleen: Normal in size and attenuation. Pancreas: Unremarkable. Adrenal glands: Unremarkable. Kidneys: The unenhanced kidneys are normal in size. No hydronephrosis is seen on the right. No definite calcul i are seen within the right renal pelvis. Right ureter is normal in caliber. Punctate calculus is see n within the urinary bladder lumen near right ureterovesicular junction. Moderate hydronephrosis is seen on the left. Few calculi are seen within left renal pelvis. Previousl y seen 1.3 cm calculus within left collecting system is no longer visualized. Also large left extrare nal pelvis is seen. Interval placement of left ureteral stent is seen with its proximal aspect coilin g within left extrarenal pelvis and distal aspect is seen within urinary bladder lumen. Multiple calc gómez are seen within left ureter along course of the stent, largest is measuring 4 mm in size and tyra ed in PACs on series 3. Mild fat stranding surrounds the left ureter and also extend to the left massimo abdomen appears slightly worsening since prior. Small calculus is seen within urinary bladder near ur eter vesicular junction. 2.0 cm right renal cyst is again seen. Bowel: Most of the stomach is seen within hiatal hernia. Bowel loops are nondilated. Normal appendix. Diverticulosis of sigmoid colon without evidence of diverticulitis. Peritoneum: There is no intraperitoneal free air or abdominal ascites. Vasculature: The abdominal aorta is normal in course and caliber. Adenopathy: None. Pelvic viscera: Urinary bladder is fluid-filled. Prostate gland is not significantly enlarged. Bilate ral fat-containing inguinal hernias with mild herniation of anterior aspect of the urinary bladder w ithin the right hernia are unchanged since prior. Skeletal structures: Multilevel degenerative changes of the spine. Sclerotic lesion is seen within L3 vertebral body, unchanged since prior. Laminectomy changes and orthopedic hardware is seen at L4-L5 level. IMPRESSION: 1. Stable hydronephrosis on the left with interval placement of ureteral stent within left collectin g system. The overall decrease amount of the calculi within left renal pelvis. Persistent fat strandi ng surrounding left kidney. 2. Interval worsening of fat stranding surrounding stented left ureter which also extend to the left hemiabdomen. Multiple calculi along the course of the left ureteral stent, largest is measuring 4 mm in size. 3. Few calculi are seen within urinary bladder lumen near anatomical region of the right and left ur eter vesicular junction. Size of the calculi are decreased since prior study. 4. Nondilated loops of bowel. Normal appendix. 5. Diverticulosis without diverticulitis. 6. Bilateral inguinal hernia, redemonstration of mild herniation of the urinary bladder to the right inguinal hernia. 7. Stable large hiatal hernia. 8. The rest of findings as above. ACT 112: Negative or not required by law. The above report was generated using voice recognition software. It may contain grammatical, syntax o r spelling errors. Electronically signed by: Bisi Cole DO 06/21/2021 8:30 AM
[2021-06-21] MEDS ORDERED: GLUCOSAMINE CHONDROITIN PO SCH (09:00)
--- NOTE | 2021-06-21 12:16 | Cardiology Consultation ---
Date of Consultation June 21, 2021 Assessment & Plan (1) Atrial fibrillation with RVR: (2) Kidney stone: (3) Anemia, iron deficiency: Unfortunately, the patient was not anticoagulated on admission due to his recent surgery and history of anemia. He is currently on aspirin 325 mg along w ith a prophylactic dose of Lovenox. His heart rates are controlled with diltiazem. I will switch him over to a beta-kiley and started him on Lopressor 25 mg p.o. twice daily. Once his heart rates are controlled with the beta-kiley you can discontinue the diltiazem. I have asked urology to see him and comment on anticoagulation. If they feel that it is safe for him to be fully anticoagulated then the scenario would change. If he cannot be fully anticoagulated then he will have to remain on rate control and aspirin only. I will review his echocardiogram that was completed this morning. His cardiac markers have been negative. 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 He has no significant cardiac history. He does have a history of chronic anemia for several years which has been extensively evaluated including endoscopy and colonoscopy without a complete diagnosis. More recently he was noted to have kidney stones and it was suggested that perhaps he was having slow bleeding which resulted in his chronic iron deficiency anemia. He was seen by urology and underwent lithotripsy on Saturday. He was discharged and did well over the weekend. He came to work yesterday feeling well and then while helping with the patient he suddenly felt queasy and lightheaded. He went to the emergency department where he was noted to be in new onset atrial fibrillation with RVR. He was started on IV diltiazem which controlled his heart rate and he felt better. Unfortunately he was not fully anticoagulated on admission due to his recent lithotripsy and history of anemia he was only started on aspirin 325 mg daily along with Lovenox for prophylaxis of DVT. The patient has had no previous episodes of atrial fibrillation. He has had no recent cardiac symptoms and denies dizziness or lightheadedness. He denies heart palpitations or tachycardia. No activity related chest pain or shortness of breath. He has no history of diabetes, hypertension or hypercholesterolemia. He is a non-smoker. Allergies Allergy/AdvReac Type Severity Reaction Status Date / Time codeine Allergy Intermediate Swelling Verified 06/20/21 22:15 Home Medications Medication Instructions Recorded Confirmed Type atorvastatin 20 mg tablet 20 mg PO QAM 02/09/19 06/20/21 History doxazosin 2 mg tablet (Cardura) 2 mg PO QPM 02/09/19 06/20/21 History glucosamine-chondroitin 167 mg-133 1 cap PO QAM 02/09/19 06/20/21 History mg capsule lisinopril 5 mg tablet (Zestril) 5 mg PO QAM 02/09/19 06/20/21 History multivitamin 1 tab PO QAM 02/09/19 06/20/21 History omega 5-nym-nln-fish oil 1,000 mg 1 cap PO QAM 02/09/19 06/20/21 History (120 mg-180 mg) capsule (Fish Oil) ferrous sulfate 325 mg (65 mg 325 mg PO Q2D 03/20/21 06/20/21 History iron) tablet (iron) naproxen sodium 220 mg capsule 220 mg PO BID PRN 03/20/21 06/20/21 History (Aleve) psyllium husk 0.4 gram capsule 0.8 g PO QAM 03/20/21 06/20/21 History (Metamucil) ciprofloxacin HCl 500 mg tablet 500 mg PO BID #6 tab 06/16/21 06/20/21 Rx (Cipro) tramadol 50 mg tablet 50 mg PO Q6H PRN #20 tab 06/16/21 06/20/21 Rx oxybutynin chloride 5 mg tablet 5 mg PO DAILY #14 tab 06/19/21 06/20/21 Rx Patient History Medical History Anemia felt r/t hematuria, no known hx of blood transfusion BPH (benign prostatic hyperplasia) GERD (gastroesophageal reflux disease) Hematuria Hiatal hernia Hyperlipidemia Hypertension Kidney stone Multiple Osteoarthritis Renal cyst R/L (under surveillance) Seasonal allergies Surgical History Fusion of spine Lumbar H/O lumbar discectomy x2 History of arthroscopy Right knee History of bladder surgery (~04/2021) cystolithopaxy History of colonoscopy History of cystoscopy History of esophagogastroduodenoscopy (EGD) History of lithotripsy Multiple History of mandibular surgery + jaw clicking (no locking) History of repair of rotator cuff R/L; Left Shoulder Arthroscopy, Rotator Cuff Repair (04/21/20): LMA#5 [place] [facility] [place] of [place]illectomy History of tooth extraction Family History Father Diabetes Mother Diabetes Other No family history of adverse response to anesthesia Social History Smoking Status: Never smoker Second Hand Exposure: Yes ( KID); Do You Dip or Chew Tobacco: No; Hx Alcohol Use: Yes Alcohol type: hard liquor Hx Substance Use: No Preferred Language: French Communication Ability: Effective Hearing Ability: Normal 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 All other 10 point review of systems are negative. Physical Exam Physical Exam: General: no acute distress and stated age Head: normocephalic, no masses, lesions, tenderness or abnormalities Eyes: conjunctiva are pink and non-injected, sclera clear Neck: supple, no adenopathy, no bruits, normal jugular venous pulse, no hepatojugular reflux Chest: normal shape and normal respiratory effort Lungs: clear to auscultation and percussion Cardiac Exam: - irregular rate & rhythm, no murmurs gallops or rubs - normal S1, normal S2 Pulses: 2(+) throughout Abdomen: abdomen soft, non-tender, no abnormal masses and no hepatosplenomegaly Musculoskeletal: no gait disturbance, no joint inflammation, no deforming arthritis Extremities: no edema and no cyanosis Neuro: grossly normal exam Results & Data ([facility]) Vital Signs (Past 12 Hours) Vital Signs Temp Pulse Pulse Resp BP BP Pulse Ox 06/21/21 08:54 36.9 C 83 18 132/68 98 06/21/21 08:00 87 06/21/21 04:20 36.6 C 99 H 18 132/91 96 06/21/21 02:00 37.1 C 102 H 102 H 20 131/90 98 06/21/21 01:30 109 H 18 118/77 99 06/21/21 01:15 98 H 15 135/87 96 06/21/21 01:00 101 H 16 99 06/21/21 00:45 92 H 13 122/88 100 06/21/21 00:30 98 H 15 148/75 H 99 06/21/21 00:15 98 H 19 131/87 97 Laboratory Results Laboratory Results - last 24 hr 06/20/21 06/20/21 06/20/21 22:30 22:30 22:30 WBC 9.54 RBC 4.74 Hgb 9.1 L POC Hgb Hct 31.9 L POC Hct MCV 67.3 L MCH 19.2 L MCHC 28.5 L RDW Std Deviation 43.1 RDW Coeff of Cj 17.5 H Plt Count 442 H MPV 8.7 Immature Gran % (Auto) 0.2 Neut % (Auto) 70.9 Lymph % (Auto) 13.1 [place] % (Auto) 14.2 Eos % (Auto) 1.0 Baso % (Auto) 0.6 Neut # (Auto) 6.76 H Lymph # (Auto) 1.25 [place] # (Auto) 1.35 H Eos # (Auto) 0.10 Baso # (Auto) 0.06 Immature Gran # (Auto) 0.02 Polychromasia Hypochromasia Present Microcytosis Tear Drop Cells Ovalocytes 1+ Echinocytes 1+ PT 10.8 INR 1.1 APTT 21.5 PTT Ratio 0.8 POC Sodium Sodium 136 POC Potassium Potassium 3.9 POC Chloride Chloride 106 Carbon Dioxide 23 POC Total CO2 Anion Gap 7.0 POC Anion Gap POC BUN BUN 22 H Creatinine 1.17 POC Creatinine Est Cr Clr Drug Dosing 78.6 Est GFR ( Amer) 76.4 Est GFR (Non-Af Amer) 66.0 BUN/Creatinine Ratio 18.4 Glucose 103 H POC Glucose (other) Lactate Calcium 9.1 POC Ioniz Calcium Tiki Magnesium 1.8 Total Bilirubin 0.7 Direct Bilirubin 0.2 AST 21 ALT 37 Alkaline Phosphatase 62 Troponin I < 0.015 Total Protein 7.3 Albumin 3.8 Lipase 121 Urine Color Urine Appearance Urine pH Ur Specific [place] Urine Protein Urine Glucose (UA) Urine Ketones Urine Blood Urine Nitrite Urine Bilirubin Urine Urobilinogen Ur Leukocyte Esterase Urine WBC (Auto) Urine RBC (Auto) U Hyaline Cast (Auto) U Epithel Cells (Auto) Urine Bacteria (Auto) COVID-19 Eval Order SARS-CoV-2 (PCR) 06/20/21 06/20/21 06/20/21 22:30 22:45 23:18 WBC RBC Hgb POC Hgb 10.9 L Hct POC Hct 32 L MCV MCH MCHC RDW Std Deviation RDW Coeff of Cj Plt Count MPV Immature Gran % (Auto) Neut % (Auto) Lymph % (Auto) [place] % (Auto) Eos % (Auto) Baso % (Auto) Neut # (Auto) Lymph # (Auto) [place] # (Auto) Eos # (Auto) Baso # (Auto) Immature Gran # (Auto) Polychromasia Hypochromasia Microcytosis Tear Drop Cells Ovalocytes Echinocytes PT INR APTT PTT Ratio POC Sodium 136 Sodium POC Potassium 4.0 Potassium POC Chloride 102 Chloride Carbon Dioxide POC Total CO2 20 L Anion Gap POC Anion Gap 19.0 POC BUN 22 H BUN Creatinine POC Creatinine 1.1 Est Cr Clr Drug Dosing Est GFR ( Amer) Est GFR (Non-Af Amer) BUN/Creatinine Ratio Glucose POC Glucose (other) 106 H Lactate 1.9 Calcium POC Ioniz Calcium Tiki 1.14 Magnesium Total Bilirubin Direct Bilirubin AST ALT Alkaline Phosphatase Troponin I Total Protein Albumin Lipase Urine Color Urine Appearance Urine pH Ur Specific [place] Urine Protein Urine Glucose (UA) Urine Ketones Urine Blood Urine Nitrite Urine Bilirubin Urine Urobilinogen Ur Leukocyte Esterase Urine WBC (Auto) Urine RBC (Auto) U Hyaline Cast (Auto) U Epithel Cells (Auto) Urine Bacteria (Auto) COVID-19 Eval Order Covid19 at [facility] SARS-CoV-2 (PCR) 06/20/21 06/21/21 06/21/21 23:18 00:00 05:14 WBC 7.47 RBC 4.19 L Hgb 8.1 L POC Hgb Hct 28.9 L POC Hct MCV 69.0 L MCH 19.3 L MCHC 28.0 L RDW Std Deviation 44.3 RDW Coeff of Cj 17.5 H Plt Count 411 H MPV 9.1 Immature Gran % (Auto) 0.1 Neut % (Auto) 58.8 Lymph % (Auto) 19.9 [place] % (Auto) 17.9 Eos % (Auto) 2.9 Baso % (Auto) 0.4 Neut # (Auto) 4.38 Lymph # (Auto) 1.49 [place] # (Auto) 1.34 H Eos # (Auto) 0.22 Baso # (Auto) 0.03 Immature Gran # (Auto) 0.01 Polychromasia 1+ Hypochromasia Present Microcytosis Present Tear Drop Cells Occasional Ovalocytes 1+ Echinocytes PT INR APTT PTT Ratio POC Sodium Sodium POC Potassium Potassium POC Chloride Chloride Carbon Dioxide POC Total CO2 Anion Gap POC Anion Gap POC BUN BUN Creatinine POC Creatinine Est Cr Clr Drug Dosing Est GFR ( Amer) Est GFR (Non-Af Amer) BUN/Creatinine Ratio Glucose POC Glucose (other) Lactate Calcium POC Ioniz Calcium Tiki Magnesium Total Bilirubin Direct Bilirubin AST ALT Alkaline Phosphatase Troponin I Total Protein Albumin Lipase Urine Color Yellow Urine Appearance Clear Urine pH 6.5 Ur Specific [place] 1.039 H Urine Protein 1+ H Urine Glucose (UA) Negative Urine Ketones Negative Urine Blood 3+ H Urine Nitrite Negative Urine Bilirubin Negative Urine Urobilinogen Negative Ur Leukocyte Esterase 1+ H Urine WBC (Auto) 5-10 H Urine RBC (Auto) >30 H U Hyaline Cast (Auto) 1-5 U Epithel Cells (Auto) 10-20 H Urine Bacteria (Auto) Negative COVID-19 Eval Order SARS-CoV-2 (PCR) NEGATIVE 06/21/21 06/21/21 05:14 11:03 WBC RBC Hgb POC Hgb Hct POC Hct MCV MCH MCHC RDW Std Deviation RDW Coeff of Cj Plt Count MPV Immature Gran % (Auto) Neut % (Auto) Lymph % (Auto) [place] % (Auto) Eos % (Auto) Baso % (Auto) Neut # (Auto) Lymph # (Auto) [place] # (Auto) Eos # (Auto) Baso # (Auto) Immature Gran # (Auto) Polychromasia Hypochromasia Microcytosis Tear Drop Cells Ovalocytes Echinocytes PT INR APTT PTT Ratio POC Sodium Sodium 138 POC Potassium Potassium 3.7 POC Chloride Chloride 110 H Carbon Dioxide 25 POC Total CO2 Anion Gap 3.0 POC Anion Gap POC BUN BUN 16 Creatinine 0.84 D POC Creatinine Est Cr Clr Drug Dosing 108.0 Est GFR ( Amer) 108.0 Est GFR (Non-Af Amer) 93.2 BUN/Creatinine Ratio 19.6 Glucose 126 H POC Glucose (other) Lactate Calcium 8.2 L POC Ioniz Calcium Tiki Magnesium 2.1 Total Bilirubin Direct Bilirubin AST ALT Alkaline Phosphatase Troponin I < 0.015 < 0.015 Total Protein Albumin Lipase Urine Color Urine Appearance Urine pH Ur Specific [place] Urine Protein Urine Glucose (UA) Urine Ketones Urine Blood Urine Nitrite Urine Bilirubin Urine Urobilinogen Ur Leukocyte Esterase Urine WBC (Auto) Urine RBC (Auto) U Hyaline Cast (Auto) U Epithel Cells (Auto) Urine Bacteria (Auto) COVID-19 Eval Order SARS-CoV-2 (PCR) Medications Administered Current Inpatient Medications Acetaminophen (Acetaminophen 325 Mg Tab) 650 mg PO Q4H PRN PRN Reason: Pain or Fever Stop: 07/21/21 02:07 Aspirin (Aspirin 325 Mg Ectab) 325 mg PO [facility] Stop: 07/21/21 08:59 Atorvastatin Calcium ([facility] 20 Mg Tab) [facility] [place]: 07/21/21 08:59 Last Admin: 06/21/21 08:27 Dose: 20 mg Documented by: Doxazosin Mesylate (Doxazosin Mesylate Tab 2 Mg Tab) 2 mg PO QPM [facility] Stop: 07/21/21 20:59 Enoxaparin Sodium (Enoxaparin Inj 40 Mg/0.4 Ml Syr) 40 mg SQ Q24H [facility] Stop: 07/21/21 07:59 Last Admin: 06/21/21 08:26 Dose: 40 mg Documented by: Ferrous Sulfate (Ferrous Sulfate 325 Mg Tab) 325 mg PO Q2D@0900 [facility] Stop: 07/22/21 08:59 Diltiazem HCl 125 mg/ Dextrose 125 mls @ 5 mls/hr IV .Q24H [facility]; Protocol Stop: 07/20/21 22:29 Last Titration: 06/21/21 07:01 Dose: 5 mg/hr, 5 mls/hr Documented by: Sodium Chloride (Nss 1000ml) 1,000 mls @ 100 mls/hr IV .Q10H [facility] Stop: 07/21/21 02:07 Last Admin: 06/21/21 09:47 Dose: 100 mls/hr Documented by: Lisinopril (Lisinopril 5 Mg Tab) 5 mg PO QAM [facility] Stop: 07/21/21 08:59 Last Admin: 06/21/21 08:27 Dose: 5 mg Documented by: Metoprolol Tartrate (Metoprolol Tartrate 25 Mg Tab) 25 mg PO BID [facility] Stop: 07/21/21 12:14 Multivitamins (Multivitamin Tab) [facility] [place]: 07/21/21 08:59 Last Admin: 06/21/21 08:27 Dose: 1 tab Documented by: Nitroglycerin (Nitroglycerin Sl 0.4 Mg/Tab Tab) 0.4 mg SL UD PRN PRN Reason: Chest Pain Stop: 07/21/21 02:07 Ondansetron HCl (Ondansetron Inj 2 Mg/Ml 2 Ml Vial) 4 mg IV Q6H PRN PRN Reason: Nausea Stop: 07/21/21 02:07 Oxybutynin Chloride (Oxybutynin Chloride 5 Mg Tab) 5 mg PO DAILY [facility] Stop: 07/21/21 08:59 Last Admin: 06/21/21 08:27 Dose: 5 mg Documented by: Psyllium Hydrophilic Mucilloid (Psyllium 58.6% Powder Packet) 1 pkt PO QAM [facility] Stop: 07/21/21 08:59 Last Admin: 06/21/21 08:27 Dose: 1 pkt Documented by: Tramadol HCl (Tramadol Hcl 50 Mg Tablet) 50 mg PO Q6H PRN PRN Reason: pain Stop: 07/21/21 02:07
--- NOTE | 2021-06-21 13:09 | Urology Consultation ---
Date of Consultation June 21, 2021 Assessment & Plan (1) Kidney stone: (2) Atrial fibrillation with RVR: 65yo M who is s/p recent urological procedure and was admitted with new onset of Afib - Patient is s/p Cystoscopy, Ureteronephroscopy, Retrograde Pyelogram, Laser Destruction of Stone, Left Insertion of Stent Catheter with Dr. Arango on 06/16/21. - Urology consulted regarding safety of initiating anticoagulation post urologic procedure. - From perspective, patient is okay to start anticoagulation per Cardiology/Medicine team. - He does have a ureteral stent in place, so he may experience some hematuria, which is expected. - He is afebrile, VSS. - Labs reviewed, Wbc and Cr are normal. - Voiding without difficulty, no hematuria or dysuria at present. - Tolerating ureteral stent with minimal bother. - Imaging reviewed - CT notable for stable hydronephrosis on the left with interval placement of ureteral stent within left collecting system; Interval worsening of fat stranding surrounding stented left ureter with multiple calculi along the course of the left ureteral stent, largest is measuring 4 mm in size; A few bladder stones were also noted. - CT findings as expected following recent procedure. He may continue to pass small stone fragments. - Continue oxybutynin for bladder spasms. Can consider pyridium prn for bladder pain. - Continue supportive care and management per primary team. - Plan to keep outpatient follow-up as scheduled with [facility] imaging and possible stent removal on 07/03/21. - Expected clinical course reviewed with patient, all questions were answered. - Thank you for allowing us to participate in the acute care of Mr. Hebert. Please reconsult us with additional questions, concerns or changes in patient status. History of Present Illness Reason for Consultation: Need for anticoagulation and AFib Attending Physician: Jonathan Puga MD History of Present Illness 65yo M who presented to the ED with complaints of dizziness, palpitations, weakness, and nausea and was found to be in rapid atrial fibrillation. He was admitted for further evaluation and monitoring. PMHx includes hyperlipidemia, hypertension, diverticulosis of large intestine, BPH, recurrent kidney stones, bladder stones, iron deficiency anemia due to chronic blood loss Urology consulted regarding safety of anticoagulation given new onset afib and recent urological procedure. Patient is s/p Cystoscopy, Ureteronephroscopy, Retrograde Pyelogram, Laser Destruction of Stone, Left Insertion of Stent Catheter with Dr. Arango on 06/16/21. Chart review: Afebrile WBC 7.[address] abdomen pelvis IMPRESSION: 1. Stable hydronephrosis on the left with interval placement of ureteral stent within left collecting system. The overall decrease amount of the calculi within left renal pelvis. Persistent fat stranding surrounding left kidney. 2. Interval worsening of fat stranding surrounding stented left ureter which also extend to the left hemiabdomen. Multiple calculi along the course of the left ureteral stent, largest is measuring 4 mm in size. 3. Few calculi are seen within urinary bladder lumen near anatomical region of the right and left ureter vesicular junction. Size of the calculi are decreased since prior study. 4. Nondilated loops of bowel. Normal appendix. 5. Diverticulosis without diverticulitis. 6. Bilateral inguinal hernia, redemonstration of mild herniation of the urinary bladder to the right inguinal hernia. 7. Stable large hiatal hernia. Pt examined at bedside this afternoon. at bedside. Awake, resting in bed on arrival. Appears comfortable, no acute distress. He reports mild suprapubic pain and dysuria with urination. Has been taking oxybutynin for bladder spasms. States discomfort resolves after urination. Denies hematuria. Denies back and flank pain. Voiding in urinal. Feels he is emptying his bladder. Denies fevers or chills. No nausea or vomiting. Tolerating diet. Offers no additional complaints today Allergies Allergy/AdvReac Type Severity Reaction Status Date / Time codeine Allergy Intermediate Swelling Verified 06/20/21 22:15 Home Medications Medication Instructions Recorded Confirmed Type atorvastatin 20 mg tablet 20 mg PO QAM 02/09/19 06/20/21 History doxazosin 2 mg tablet (Cardura) 2 mg PO QPM 02/09/19 06/20/21 History glucosamine-chondroitin 167 mg-133 1 cap PO QAM 02/09/19 06/20/21 History mg capsule lisinopril 5 mg tablet (Zestril) 5 mg PO QAM 02/09/19 06/20/21 History multivitamin 1 tab PO QAM 02/09/19 06/20/21 History omega 4-ftm-wdx-fish oil 1,000 mg 1 cap PO QAM 02/09/19 06/20/21 History (120 mg-180 mg) capsule (Fish Oil) ferrous sulfate 325 mg (65 mg 325 mg PO Q2D 03/20/21 06/20/21 History iron) tablet (iron) naproxen sodium 220 mg capsule 220 mg PO BID PRN 03/20/21 06/20/21 History (Aleve) psyllium husk 0.4 gram capsule 0.8 g PO QAM 03/20/21 06/20/21 History (Metamucil) ciprofloxacin HCl 500 mg tablet 500 mg PO BID #6 tab 06/16/21 06/20/21 Rx (Cipro) tramadol 50 mg tablet 50 mg PO Q6H PRN #20 tab 06/16/21 06/20/21 Rx oxybutynin chloride 5 mg tablet 5 mg PO DAILY #14 tab 06/19/21 06/20/21 Rx Patient History Medical History Anemia felt r/t hematuria, no known hx of blood transfusion BPH (benign prostatic hyperplasia) GERD (gastroesophageal reflux disease) Hematuria Hiatal hernia Hyperlipidemia Hypertension Kidney stone Multiple Osteoarthritis Renal cyst R/L (under surveillance) Seasonal allergies Surgical History Fusion of spine Lumbar H/O lumbar discectomy x2 History of arthroscopy Right knee History of bladder surgery (~04/2021) cystolithopaxy History of colonoscopy History of cystoscopy History of esophagogastroduodenoscopy (EGD) History of lithotripsy Multiple History of mandibular surgery + jaw clicking (no locking) History of repair of rotator cuff R/L; Left Shoulder Arthroscopy, Rotator Cuff Repair (04/21/20): [place]#5 [place] [facility] [place] of tonsillectomy History of tooth extraction Family History Father Diabetes Mother Diabetes Other No family history of adverse response to anesthesia Social History Smoking Status: Never smoker Second Hand Exposure: Yes ( KID); Do You Dip or Chew Tobacco: No; Hx Alcohol Use: Yes Alcohol type: hard liquor Hx Substance Use: No Preferred Language: Vietnamese Communication Ability: Effective Hearing Ability: Normal See Supervisor Required: No Beliefs That Will Affect Care: None marital status: Current Living Situation: Spouse current occupational status: employed Feels Safe at Home: Yes Assistive Devices: Glasses Review of Systems Review of Systems: All systems reviewed & are unremarkable except as noted in HPI & below Physical Exam Constitutional: well developed and well nourished; no acute distress and not ill appearing Neck: normal visual inspection Respiratory: normal respiratory effort and able to speak in complete sentences; no labored breathing and no audible wheezes Gastrointestinal (Abdomen): Inspection/Auscultation: abdomen normal to inspection Musculoskeletal: Head/Neck/Chest: normocephalic Skin: No visible rashes or lesions to exposed skin areas Neurologic: awake Psychiatric: Orientation: alert, oriented x 3 and cooperative Results & Data ([facility]) Vital Signs (Past 12 Hours) Vital Signs Temp Pulse Pulse Resp BP BP Pulse Ox 06/21/21 08:54 36.9 C 83 18 132/68 98 06/21/21 08:00 87 06/21/21 04:20 36.6 C 99 H 18 132/91 96 06/21/21 02:00 37.1 C 102 H 102 H 20 131/90 98 06/21/21 01:30 109 H 18 118/77 99 06/21/21 01:15 98 H 15 135/87 96 06/21/21 01:00 101 H 16 99 PG Care Time/CCT Total # of Minutes Spent Total Time Spent with Patient: Total time spent is greater than 50% in coordination of care (as documented) at patient's floor/unit and/or counseling patient: Coding Level of Care Code 75959 Inpt Consult Level 3 Diagnoses Atrial fibrillation with RVR I48.91 Kidney stone N20.0
[2021-06-21] MEDS: ASPIRIN 325 MG ECTAB PO SCH (13:22)
[2021-06-21] MEDS: METOPROLOL TARTRATE 25 MG TAB PO SCH ×2 (13:22→19:58)
[2021-06-21] MEDS ORDERED: METOPROLOL TARTRATE 1 MG/ML VIAL IV PRN (16:55)
--- NOTE | 2021-06-21 16:59 | Electrocardiogram Report ---
Test Reason : Blood Pressure : / mmHG Vent. Rate : 099 BPM Atrial Rate : 097 BPM P-R Int : 000 ms QRS Dur : 076 ms QT Int : 316 ms P-R-T Axes : 000 033 006 degrees QTc Int : 405 ms Atrial fibrillation Abnormal ECG When compared with ECG of 07-JUN-2021 11:56, Atrial fibrillation has replaced Sinus rhythm Inverted T waves have replaced nonspecific T wave abnormality in Inferior leads Confirmed by Johnie Myers ([id number]) on 06/21/2021 4:59:18 PM Referred By: REFERRED SELF Confirmed By:Johnie Myers
[2021-06-21] MEDS ORDERED: Heparin IV Adult Wt-Based Standard *NO* Bolus Protocol IV ONE (18:46)
[2021-06-21] MEDS ORDERED: HEPARIN SODIUM/DEXTROSE 25,000 UNITS/500 ML BAG IV SCH (19:15)
[2021-06-21] MEDS: DOXAZosin MESYLATE TAB 2 MG TAB PO SCH (19:58)
[2021-06-22 02:38] LABS: Partial Thromboplastin Ratio 2.7
[2021-06-22 02:44] LABS: Partial Thromboplastin Time 70.2 Seconds (21.0-31.0)
[2021-06-22 05:36] LABS: Hemoglobin 7.3 g/dL (14.0-18.0); Mean Corpuscular Hemoglobin 19.2 pg (25-34); Mean Corpuscular Hgb Conc 28.1 g/dL (32-36); Mean Corpuscular Volume 68.4 fL (80-100); Mean Platelet Volume 8.9 fL (7.4-10.4); Platelet Count 349 K/uL (130-400); RDW Coefficient of Variation 17.6 % (11.5-14.5); RDW Standard Deviation 44.2 fL (36.4-46.3); White Blood Count 5.52 K/uL (4.8-10.8)
[2021-06-22 06:03] LABS: BUN Creatinine Ratio 19.7 (10-20); Calcium 8.3 mg/dl (8.5-10.1); Creatinine Clr Calc Pharmacy 122.7 ml/min; Est GFR (African American) 113.8 ml/min; Est GFR (Non-African American) 98.2 ml/min; Magnesium 1.9 mg/dl (1.8-2.4); Potassium 4.3 mmol/L (3.5-5.1)
[2021-06-22 06:35] LABS: Basophils # (auto) 0.06 K/uL (0-0.2); Basophils % (auto) 1.1 %; Eosinophils # (auto) 0.31 K/uL (0-0.5); Eosinophils % (auto) 5.6 %; Hypochromasia Present; Immature Granulocytes # (auto) 0.01 K/uL (0.00-0.02); Immature Granulocytes % (auto) 0.2 %; Lymphocytes # (auto) 1.87 K/uL (1.2-3.4); Lymphocytes % (auto) 33.9 %; Microcytosis Present; Monocytes # (auto) 0.76 K/uL (0.11-0.59); Monocytes % (auto) 13.8 %; Neutrophils # (auto) 2.51 K/uL (1.4-6.5); Neutrophils % (auto) 45.4 %; Ovalocytes 1+
[2021-06-22] MEDS: SODIUM CHLORIDE 0.9% 1000ML 1,000 ML IV SCH (06:51)
[2021-06-22] MEDS: ATORVASTATIN 20 MG TAB PO SCH (08:18)
[2021-06-22] MEDS: OXYBUTYNIN CHLORIDE 5 MG TAB PO SCH (08:18)
[2021-06-22] MEDS: MULTIVITAMIN TAB PO SCH (08:18)
[2021-06-22] MEDS: METOPROLOL TARTRATE 25 MG TAB PO SCH ×2 (08:18→20:36)
[2021-06-22] MEDS: PSYLLIUM 58.6% POWDER PACKET PO SCH (08:18)
[2021-06-22] MEDS: lisinopril 5 MG TAB PO SCH (08:18)
[2021-06-22] MEDS: ASPIRIN 325 MG ECTAB PO SCH (08:19)
[2021-06-22] MEDS ORDERED: NON-FORMULARY MEDICATION (Ferrous Sulfate [Iron] 325 mg (65 mg iron) Tablet) PO SCH (09:00)
[2021-06-22] MEDS ORDERED: FERROUS SULFATE 325 MG TAB PO SCH (09:00)
--- NOTE | 2021-06-22 09:12 | Cardiology Progress Note ---
Date of Service June 22, 2021 Assessment & Plan (1) Atrial fibrillation with RVR: (2) Kidney stone: (3) Anemia, iron deficiency: Plan: The patient converted earlier this morning to normal sinus rhythm. At this point I would continue the metoprolol at its current dose. Unfortunately, the patient's hemoglobin dropped to 7.3 last night after he was started on heparin. His Hossein vas score is 1 which is intermediate for aspirin versus anticoagulation. Given his recent history of lithotripsy for renal calculi and a ureteral stent along with his iron deficiency anemia and drop in hemoglobin after the start of heparin I think the risk versus benefit would favor stopping the heparin and not starting any additional anticoagulation. He should remain on aspirin 81 mg daily. From a cardiac standpoint I think he could be discharged however, you may want to keep him sn additional 24 hours to monitor his hemoglobin and be certain he does not drop any further to where he would need a blood transfusion. Admission and Anticipated Discharge Date Admission Date: June 21, 2021 Subjective The patient had an uneventful night. Early this morning he converted to normal sinus rhythm. Review of Systems Review of Systems: Review of Systems: See HPI for pertinent positives. All other 10 point review of systems are negative. Physical Exam Physical Exam: General: no acute distress and stated age Head: normocephalic, no masses, lesions, tenderness or abnormalities Eyes: conjunctiva are pink and non-injected, sclera clear Neck: supple, no adenopathy, no bruits, normal jugular venous pulse, no hepatojugular reflux Chest: normal shape and normal respiratory effort Lungs: clear to auscultation and percussion Cardiac Exam: - regular rate & rhythm, no murmurs gallops or rubs - normal S1, normal S2 Pulses: 2(+) throughout Abdomen: abdomen soft, non-tender, no abnormal masses and no hepatosplenomegaly Musculoskeletal: no gait disturbance, no joint inflammation, no deforming arthritis Extremities: no edema and no cyanosis Neuro: grossly normal exam Results & Data ([facility]) Vital Signs (Past 12 Hours) Vital Signs Temp Pulse Pulse Resp BP Pulse Ox 06/22/21 02:14 36.5 C 67 20 121/78 94 06/21/21 23:30 60 06/21/21 23:00 37.2 C 65 99 H 140/91 99 Laboratory Results Laboratory Results - last 24 hr 06/21/21 06/22/21 06/22/21 11:03 01:58 04:54 WBC 5.52 RBC 3.80 L Hgb 7.3 L Hct 26.0 L MCV 68.4 L MCH 19.2 L MCHC 28.1 L RDW Std Deviation 44.2 RDW Coeff of Cj 17.6 H Plt Count 349 MPV 8.9 Immature Gran % (Auto) 0.2 Neut % (Auto) 45.4 Lymph % (Auto) 33.9 [place] % (Auto) 13.8 Eos % (Auto) 5.6 Baso % (Auto) 1.1 Neut # (Auto) 2.51 Lymph # (Auto) 1.87 [place] # (Auto) 0.76 H Eos # (Auto) 0.31 Baso # (Auto) 0.06 Immature Gran # (Auto) 0.01 Hypochromasia Present Microcytosis Present Ovalocytes 1+ APTT 70.2 H* PTT Ratio 2.7 Sodium Potassium Chloride Carbon Dioxide Anion Gap BUN Creatinine Est Cr Clr Drug Dosing Est GFR ( Amer) Est GFR (Non-Af Amer) BUN/Creatinine Ratio Glucose Calcium Magnesium Troponin I < 0.015 06/22/21 06/22/21 04:57 08:55 WBC RBC Hgb Hct MCV MCH MCHC RDW Std Deviation RDW Coeff of Cj Plt Count MPV Immature Gran % (Auto) Neut % (Auto) Lymph % (Auto) [place] % (Auto) Eos % (Auto) Baso % (Auto) Neut # (Auto) Lymph # (Auto) [place] # (Auto) Eos # (Auto) Baso # (Auto) Immature Gran # (Auto) Hypochromasia Microcytosis Ovalocytes APTT Pending PTT Ratio Pending Sodium 141 Potassium 4.3 D Chloride 112 H Carbon Dioxide 27 Anion Gap 2.0 L BUN 15 Creatinine 0.74 Est Cr Clr Drug Dosing 122.7 Est GFR ( Amer) 113.8 Est GFR (Non-Af Amer) 98.2 BUN/Creatinine Ratio 19.7 Glucose 93 Calcium 8.3 L Magnesium 1.9 Troponin I Medications Administered Current Inpatient Medications Acetaminophen (Acetaminophen 325 Mg Tab) 650 mg PO Q4H PRN PRN Reason: Pain or Fever Stop: 07/21/21 02:07 Aspirin (Aspirin 81 Mg Chew) 81 mg PO DAILY [facility] Stop: 07/23/21 08:59 Atorvastatin Calcium (Atorvastatin 20 Mg Tab) 20 mg PO [facility] Stop: 07/21/21 08:59 Last Admin: 06/22/21 08:18 Dose: 20 mg Documented by: Doxazosin Mesylate (Doxazosin Mesylate Tab 2 Mg Tab) 2 mg PO QPM [facility] Stop: 07/21/21 20:59 Last Admin: 06/21/21 19:58 Dose: 2 mg Documented by: Ferrous Sulfate (Ferrous Sulfate 325 Mg Tab) 325 mg PO Q2D@0900 [facility] Stop: 07/22/21 08:59 Last Admin: 06/22/21 08:18 Dose: 325 mg Documented by: Lisinopril (Lisinopril 5 Mg Tab) 5 mg PO [facility] Stop: 07/21/21 08:59 Last Admin: 06/22/21 08:18 Dose: 5 mg Documented by: Metoprolol Tartrate (Metoprolol Tartrate 25 Mg Tab) 25 mg PO BID [facility] Stop: 07/21/21 12:14 Last Admin: 06/22/21 08:18 Dose: 25 mg Documented by: Metoprolol Tartrate (Metoprolol Tartrate 1 Mg/Ml Vial) 5 mg IV Q6 PRN PRN Reason: Heart rate >120 Stop: 07/21/21 17:59 Multivitamins (Multivitamin Tab) 1 tab PO [facility] Stop: 07/21/21 08:59 Last Admin: 06/22/21 08:18 Dose: 1 tab Documented by: Nitroglycerin (Nitroglycerin Sl 0.4 Mg/Tab Tab) 0.4 mg SL UD PRN PRN Reason: Chest Pain Stop: 07/21/21 02:07 Ondansetron HCl (Ondansetron Inj 2 Mg/Ml 2 Ml Vial) 4 mg IV Q6H PRN PRN Reason: Nausea Stop: 07/21/21 02:07 Oxybutynin Chloride (Oxybutynin Chloride 5 Mg Tab) 5 mg PO DAILY [facility] Stop: 07/21/21 08:59 Last Admin: 06/22/21 08:18 Dose: 5 mg Documented by: Psyllium Hydrophilic Mucilloid (Psyllium 58.6% Powder Packet) [facility] Stop: 07/21/21 08:59 Last Admin: 06/22/21 08:18 Dose: 1 pkt Documented by: Tramadol HCl (Tramadol Hcl 50 Mg Tablet) 50 mg PO Q6H PRN PRN Reason: pain Stop: 07/21/21 02:07
[2021-06-22 15:48] LABS: Hematocrit (blood only) 27.3 % (42-52); Hemoglobin 7.7 g/dL (14.0-18.0)
[2021-06-22] MEDS: DOXAZosin MESYLATE TAB 2 MG TAB PO SCH (20:36)
[2021-06-22] MEDS: POLYETHYLENE (MIRALAX) 17 GM PACK PO PRN (20:37)
[2021-06-23 05:31] LABS: BUN Creatinine Ratio 18.3 (10-20); Calcium 8.3 mg/dl (8.5-10.1); Creatinine Clr Calc Pharmacy 110.9 ml/min; Est GFR (African American) 109.1 ml/min; Est GFR (Non-African American) 94.1 ml/min; Magnesium 2.1 mg/dl (1.8-2.4); Phosphorus 3.4 mg/dl (2.5-4.9); Potassium 4.1 mmol/L (3.5-5.1)
[2021-06-23 05:52] LABS: Hematocrit (blood only) 27.5 % (42-52); Hemoglobin 7.8 g/dL (14.0-18.0); Mean Corpuscular Hemoglobin 19.3 pg (25-34); Mean Corpuscular Hgb Conc 28.4 g/dL (32-36); Mean Corpuscular Volume 68.1 fL (80-100); Mean Platelet Volume 8.6 fL (7.4-10.4); Platelet Count 340 K/uL (130-400); RDW Coefficient of Variation 17.4 % (11.5-14.5); RDW Standard Deviation 43.4 fL (36.4-46.3); Red Blood Count 4.04 M/uL (4.7-6.1); White Blood Count 5.51 K/uL (4.8-10.8)
--- NOTE | 2021-06-23 05:52 | Electrocardiogram Report ---
Test Reason : Blood Pressure : / mmHG Vent. Rate : 060 BPM Atrial Rate : 060 BPM P-R Int : 174 ms QRS Dur : 082 ms QT Int : 414 ms P-R-T Axes : 054 041 018 degrees QTc Int : 414 ms Normal sinus rhythm with sinus arrhythmia Normal ECG When compared with ECG of 21-JUN-2021 19:23, No significant change was found Confirmed by Chicho Escamilla ([id number]) on 06/23/2021 5:52:00 AM Referred By: REFERRED SELF Confirmed By:Chicho Escamilla
[2021-06-23] MEDS: OXYBUTYNIN CHLORIDE 5 MG TAB PO SCH (08:26)
[2021-06-23] MEDS: MULTIVITAMIN TAB PO SCH (08:26)
[2021-06-23] MEDS: ATORVASTATIN 20 MG TAB PO SCH (08:26)
[2021-06-23] MEDS: METOPROLOL TARTRATE 25 MG TAB PO SCH (08:26)
[2021-06-23] MEDS: lisinopril 5 MG TAB PO SCH (08:26)
[2021-06-23] MEDS: POLYETHYLENE (MIRALAX) 17 GM PACK PO PRN (08:27)
[2021-06-23] MEDS: PSYLLIUM 58.6% POWDER PACKET PO SCH (08:27)
[2021-06-23] MEDS ORDERED: ASPIRIN 81 MG ECTAB PO SCH (09:00)
--- NOTE | 2021-06-23 11:08 | Hospitalist Progress Note ---
Date of Service June 22, 2021 Assessment & Plan (1) Atrial fibrillation with RVR: (2) Anemia, iron deficiency: Plan: This is a 65-year-old male who presents with new-onset atrial fibrillation. 1. New-onset rapid atrial fibrillation: Rate is controlled with IV Cardizem on admission. [id number] score is 1 for hypertension. ER gave aspirin, was initially continued. Discussed with cardiology and urology given recent procedure, and started heparin for anticoagulation. Patient's anemia however worsened, and therefore heparin was stopped. Continued Cardizem drip initially, patient started on metoprolol, and converted to sinus rhythm. Troponin x3 - negative Echocardiogram - no significant valvular pathology. LV is normal in size. LV systolic function is normal. EF 60 to 65%. RV systolic function is normal. LA is mildly dilated. RA is mildly dilated. Monitor in tele. Cardiology consulted for further recommendations. Continue Toprol 25 mg twice daily, which was started during this admission For anticoagulation, continue only with aspirin 81 mg daily given patient's history of anemia, chads vascular score 1 which is intermediate for aspirin versus anticoagulation. 2. History of iron deficiency anemia with iron deficiency anemia from blood loss: Acute on chronic/blood loss anemia Current H&H 7.3, repeat later today at 7.7 No gross hematuria however blood noted on UA Discussed with urology and also cardiology, IV heparin was stopped, as above Follows with PCP and on iron supplements. Says had EGD and colonoscopy 3 to 4 years ago, which was unremarkable, and then was on iron supplements and again one year ago he was found to have anemia thought to be from blood loss from his kidney stones. Follow up with PCP. 3. Recurrent kidney stones: Recent lithotripsy and stent placement on the left side. Also discussed further with urology, who reviewed patient's current CT images. Follow up with urology. 4. Hypertension: Continue lisinopril. 5. Benign prostatic hypertrophy: Continue Cardura. 6. Hyperlipidemia: Continue statin. DVT Lovenox. DISPOSITION: Plan to likely discharge home once medically stable. Follow-up with PCP. CODE: full code. Admission and Anticipated Discharge Date Admission Date: June 21, 2021 Subjective Patient seen in follow-up of Reina moura Currently resting in bed, in no distress, converted to sinus rhythm Denies any chest pain, shortness of breath, or palpitations Also denies any abdominal pain, nausea or vomiting Denies any gross hematuria Review of Systems Review of Systems: All systems reviewed & are unremarkable except as noted in Subjective Physical Exam Physical Exam: GENERAL: The patient is of moderate build, not in acute distress. HEENT: NC/AT, EOMI, Pupils equal, round and reactive to light. Oral mucosa moist. NECK: No JVD, no neck masses. CARDIOVASCULAR: S1 and S2 heard. RRR. No murmur, no gallop. RESPIRATORY SYSTEM: Normal AP diameter. No accessory muscle use. No wheezing, no crackles. ABDOMEN: Soft, bowel sounds present, nontender, no distention. NEURO: Alert and oriented and answering questions appropriately. Moves extremities spontaneously and without difficulty. EXTREMITIES: No edema, no erythema. Results & Data Results & Data ([facility]) Vital Signs (Past 12 Hours)
--- NOTE | 2021-06-23 11:13 | Hospitalist Progress Note ---
Date of Service June 23, 2021 Assessment & Plan (1) Atrial fibrillation with RVR: (2) Anemia, iron deficiency: Plan: This is a 65-year-old male who presents with new-onset atrial fibrillation. 1. New-onset rapid atrial fibrillation: Rate is controlled with IV Cardizem on admission. [id number] score is 1 for hypertension. ER gave aspirin, was continued. Discussed with cardiology and urology given recent procedure, and started heparin for anticoagulation. Patient's anemia however worsened, and therefore heparin was stopped. Continued Cardizem drip initially, patient started on metoprolol, and converted to sinus rhythm. Troponin x3 - negative Echocardiogram - no significant valvular pathology. LV is normal in size. LV systolic function is normal. EF 60 to 65%. RV systolic function is normal. LA is mildly dilated. RA is mildly dilated. Monitor in tele. Cardiology consulted for further recommendations. Continue Toprol 25 mg twice daily, which was started during this admission For anticoagulation, continue only with aspirin 81 mg daily given patient's history of anemia, chads vascular score 1 which is intermediate for aspirin versus anticoagulation. 2. History of iron deficiency anemia with iron deficiency anemia from blood loss: Acute on chronic/blood loss anemia Says had EGD and colonoscopy 3 to 4 years ago, which was unremarkable, and then was on iron supplements and again one year ago he was found to have anemia thought to be from blood loss from his kidney stones. Follows with PCP and on iron supplements Q2D. 06/22 - H&H 7.3, repeat later that day at 7.7 06/23 Hgb 7.8 No gross hematuria however blood noted on UA Discussed with urology and also cardiology, IV heparin was stopped, as above Also discussed possibility of blood transfusion with the patient, versus iron supplement, decided to continue with iron supplements twice a day and a close follow-up with primary care doctor 3. Recurrent kidney stones: Recent lithotripsy and stent placement on the left side. Also discussed further with urology, who reviewed patient's current CT images. Follow up with urology. 4. Hypertension: Continue lisinopril. 5. Benign prostatic hypertrophy: Continue Cardura. 6. Hyperlipidemia: Continue statin. DVT Lovenox. DISPOSITION: Plan to discharge home. Follow-up with PCP and cardiology. CODE: full code. Admission and Anticipated Discharge Date Admission Date: June 21, 2021 Subjective Patient seen in follow-up of Reina moura Currently resting in bed, in no distress, converted to sinus rhythm and remains in sinus rhythm Denies any chest pain, shortness of breath, or palpitations Also denies any abdominal pain, nausea or vomiting Denies any gross hematuria Review of Systems Review of Systems: All systems reviewed & are unremarkable except as noted in Subjective Physical Exam Physical Exam: GENERAL: The patient is of moderate build, not in acute distress. HEENT: NC/AT, EOMI, Pupils equal, round and reactive to light. Oral mucosa moist. NECK: No JVD, no neck masses. CARDIOVASCULAR: S1 and S2 heard. RRR. No murmur, no gallop. RESPIRATORY SYSTEM: Normal AP diameter. No accessory muscle use. No wheezing, no crackles. ABDOMEN: Soft, bowel sounds present, nontender, no distention. NEURO: Alert and oriented and answering questions appropriately. Moves extremities spontaneously and without difficulty. EXTREMITIES: No edema, no erythema. Results & Data Results & Data ([facility]) Vital Signs (Past 12 Hours) Vital Signs Temp Pulse Pulse Resp BP Pulse Ox 06/23/21 08:00 60 06/23/21 07:00 36.9 C 86 20 122/74 98 06/23/21 04:00 36.5 C 58 L 14 118/77 96 06/23/21 00:31 37 C 71 16 121/72 96 Laboratory Results 06/23/21 06/23/21 06/22/21 Range/Units 05:02 05:02 15:07 WBC 5.51 (4.8-10.8) K/uL RBC 4.04 L (4.7-6.1) M/uL Hgb 7.8 L 7.7 L (14.0-18.0) g/dL Hct 27.5 L 27.3 L (42-52) % MCV 68.1 L (80-100) fL MCH 19.3 L (25-34) pg MCHC 28.4 L (32-36) g/dL RDW Std Deviation 43.4 (36.4-46.3) fL RDW Coeff of Cj 17.4 H (11.5-14.5) % Plt Count 340 (130-400) K/uL MPV 8.6 (7.4-10.4) fL Sodium 142 (136-145) mmol/L Potassium 4.1 (3.5-5.1) mmol/L Chloride 112 H (98-107) mmol/L Carbon Dioxide 28 (21-32) mmol/L Anion Gap 2.0 L (3-11) BUN 15 (7-18) mg/dl Creatinine 0.82 (0.6-1.4) mg/dl Est Cr Clr Drug Dosing 110.9 ml/min Est GFR ( Amer) 109.1 ml/min Est GFR (Non-Af Amer) 94.1 ml/min BUN/Creatinine Ratio 18.3 (10-20) Glucose 84 (70-99) mg/dl Calcium 8.3 L (8.5-10.1) mg/dl Phosphorus 3.4 (2.5-4.9) mg/dl Magnesium 2.1 (1.8-2.4) mg/dl Medications Administered Current Inpatient Medications Acetaminophen (Acetaminophen 325 Mg Tab) 650 mg PO Q4H PRN PRN Reason: Pain or Fever Stop: 07/21/21 02:07 Aspirin (Aspirin 81 Mg Ectab) 81 mg PO DAILY [facility] Stop: 07/23/21 08:59 Last Admin: 06/23/21 08:26 Dose: 81 mg Documented by: Atorvastatin Calcium (Atorvastatin 20 Mg Tab) 20 mg PO QAM [facility] Stop: 07/21/21 08:59 Last Admin: 06/23/21 08:26 Dose: 20 mg Documented by: Doxazosin Mesylate (Doxazosin Mesylate Tab 2 Mg Tab) 2 mg PO QPM [facility] Stop: 07/21/21 20:59 Last Admin: 06/22/21 20:36 Dose: 2 mg Documented by: Ferrous Sulfate (Ferrous Sulfate 325 Mg Tab) 325 mg PO Q2D@0900 [facility] Stop: 07/22/21 08:59 Last Admin: 06/22/21 08:18 Dose: 325 mg Documented by: Lisinopril (Lisinopril 5 Mg Tab) 5 mg PO QAM [facility] Stop: 07/21/21 08:59 Last Admin: 06/23/21 08:26 Dose: 5 mg Documented by: Metoprolol Tartrate (Metoprolol Tartrate 25 Mg Tab) 25 mg PO BID [facility] Stop: 07/21/21 12:14 Last Admin: 06/23/21 08:26 Dose: 25 mg Documented by: Metoprolol Tartrate (Metoprolol Tartrate 1 Mg/Ml Vial) 5 mg IV Q6 PRN PRN Reason: Heart rate >120 Stop: 07/21/21 17:59 Multivitamins (Multivitamin Tab) 1 tab PO [facility] Stop: 07/21/21 08:59 Last Admin: 06/23/21 08:26 Dose: 1 tab Documented by: Nitroglycerin (Nitroglycerin Sl 0.4 Mg/Tab Tab) 0.4 mg SL UD PRN PRN Reason: Chest Pain Stop: 07/21/21 02:07 Ondansetron HCl (Ondansetron Inj 2 Mg/Ml 2 Ml Vial) 4 mg IV Q6H PRN PRN Reason: Nausea Stop: 07/21/21 02:07 Oxybutynin Chloride (Oxybutynin Chloride 5 Mg Tab) 5 mg PO DAILY [facility] Stop: 07/21/21 08:59 Last Admin: 06/23/21 08:26 Dose: 5 mg Documented by: Polyethylene Glycol (Polyethylene (Miralax) 17 Gm Pack) 17 gm PO DAILY PRN PRN Reason: Constipation Stop: 07/22/21 18:03 Last Admin: 06/23/21 08:27 Dose: 17 gm Documented by: Psyllium Hydrophilic Mucilloid (Psyllium 58.6% Powder Packet) 1 pkt PO [facility] Stop: 07/21/21 08:59 Last Admin: 06/23/21 08:27 Dose: 1 pkt Documented by: Tramadol HCl (Tramadol Hcl 50 Mg Tablet) 50 mg PO Q6H PRN PRN Reason: pain Stop: 07/21/21 02:07
--- NOTE | 2021-06-23 11:41 | Cardiology Progress Note ---
Date of Service June 23, 2021 Assessment & Plan (1) Atrial fibrillation with RVR: (2) Kidney stone: (3) Anemia, iron deficiency: Plan: The patient's hemoglobin is trending up or at least stable. He has maintained sinus rhythm. He is not a candidate for outpatient anticoagulation. Continue current medications, including aspirin. From a cardiology standpoint I believe the patient can be discharged. I will arrange follow-up with our clinic. Admission and Anticipated Discharge Date Admission Date: June 21, 2021 Subjective The patient is up walking the halls feels well and would like to go home. Review of Systems Review of Systems: Review of Systems: See HPI for pertinent positives. All other 10 point review of systems are negative. Physical Exam Physical Exam: General: no acute distress and stated age Head: normocephalic, no masses, lesions, tenderness or abnormalities Eyes: conjunctiva are pink and non-injected, sclera clear Neck: supple, no adenopathy, no bruits, normal jugular venous pulse, no hepatojugular reflux Chest: normal shape and normal respiratory effort Lungs: clear to auscultation and percussion Cardiac Exam: - regular rate & rhythm, no murmurs gallops or rubs - normal S1, normal S2 Pulses: 2(+) throughout Abdomen: abdomen soft, non-tender, no abnormal masses and no hepatosplenomegaly Musculoskeletal: no gait disturbance, no joint inflammation, no deforming arthritis Extremities: no edema and no cyanosis Neuro: grossly normal exam Results & Data ([facility]) Vital Signs (Past 12 Hours) Vital Signs Temp Pulse Pulse Resp BP Pulse Ox 06/23/21 08:00 60 06/23/21 07:00 36.9 C 86 20 122/74 98 06/23/21 04:00 36.5 C 58 L 14 118/77 96 06/23/21 00:31 37 C 71 16 121/72 96 Laboratory Results Laboratory Results - last 24 hr 06/22/21 06/23/21 06/23/21 15:07 05:02 05:02 WBC 5.51 RBC 4.04 L Hgb 7.7 L 7.8 L Hct 27.3 L 27.5 L MCV 68.1 L MCH 19.3 L MCHC 28.4 L RDW Std Deviation 43.4 RDW Coeff of Cj 17.4 H Plt Count 340 MPV 8.6 Sodium 142 Potassium 4.1 Chloride 112 H Carbon Dioxide 28 Anion Gap 2.0 L BUN 15 Creatinine 0.82 Est Cr Clr Drug Dosing 110.9 Est GFR ( Amer) 109.1 Est GFR (Non-Af Amer) 94.1 BUN/Creatinine Ratio 18.3 Glucose 84 Calcium 8.3 L Phosphorus 3.4 Magnesium 2.1 Medications Administered Current Inpatient Medications Acetaminophen (Acetaminophen 325 Mg Tab) 650 mg PO Q4H PRN PRN Reason: Pain or Fever Stop: 07/21/21 02:07 Aspirin (Aspirin 81 Mg Ectab) 81 mg PO DAILY [facility] Stop: 07/23/21 08:59 Last Admin: 06/23/21 08:26 Dose: 81 mg Documented by: Atorvastatin Calcium (Atorvastatin 20 Mg Tab) 20 mg PO QAM [facility] Stop: 07/21/21 08:59 Last Admin: 06/23/21 08:26 Dose: 20 mg Documented by: Doxazosin Mesylate (Doxazosin Mesylate Tab 2 Mg Tab) 2 mg PO QPM [facility] Stop: 07/21/21 20:59 Last Admin: 06/22/21 20:36 Dose: 2 mg Documented by: Ferrous Sulfate (Ferrous Sulfate 325 Mg Tab) 325 mg PO Q2D@0900 [facility] Stop: 07/22/21 08:59 Last Admin: 06/22/21 08:18 Dose: 325 mg Documented by: Lisinopril (Lisinopril 5 Mg Tab) 5 mg PO QAM [facility] Stop: 07/21/21 08:59 Last Admin: 06/23/21 08:26 Dose: 5 mg Documented by: Metoprolol Tartrate (Metoprolol Tartrate 25 Mg Tab) 25 mg PO BID [facility] Stop: 07/21/21 12:14 Last Admin: 06/23/21 08:26 Dose: 25 mg Documented by: Metoprolol Tartrate (Metoprolol Tartrate 1 Mg/Ml Vial) 5 mg IV Q6 PRN PRN Reason: Heart rate >120 Stop: 07/21/21 17:59 Multivitamins (Multivitamin Tab) 1 tab PO QAM [facility] Stop: 07/21/21 08:59 Last Admin: 06/23/21 08:26 Dose: 1 tab Documented by: Nitroglycerin (Nitroglycerin Sl 0.4 Mg/Tab Tab) 0.4 mg SL UD PRN PRN Reason: Chest Pain Stop: 07/21/21 02:07 Ondansetron HCl (Ondansetron Inj 2 Mg/Ml 2 Ml Vial) 4 mg IV Q6H PRN PRN Reason: Nausea Stop: 07/21/21 02:07 Oxybutynin Chloride (Oxybutynin Chloride 5 Mg Tab) 5 mg PO DAILY [facility] Stop: 07/21/21 08:59 Last Admin: 06/23/21 08:26 Dose: 5 mg Documented by: Polyethylene Glycol (Polyethylene (Miralax) 17 Gm Pack) 17 gm PO DAILY PRN PRN Reason: Constipation Stop: 07/22/21 18:03 Last Admin: 06/23/21 08:27 Dose: 17 gm Documented by: Psyllium Hydrophilic Mucilloid (Psyllium 58.6% Powder Packet) 1 pkt PO QAM [facility] Stop: 07/21/21 08:59 Last Admin: 06/23/21 08:27 Dose: 1 pkt Documented by: Tramadol HCl (Tramadol Hcl 50 Mg Tablet) 50 mg PO Q6H PRN PRN Reason: pain Stop: 07/21/21 02:07
--- NOTE | 2021-06-23 12:15 | Discharge Summary ---
Date of Service June 23, 2021 Admission HPI Per Admitting Provider This is a 65-year-old male with past medical history significant for hyperlipidemia, hypertension, diverticulosis of large intestine, BPH, recurrent kidney stones, bladder stones, iron deficiency anemia due to chronic blood loss, Presents with rapid AFib. The patient works in [employer] here. The patient states last Blaze he had a lithotripsy, he had stent placement on the left side. He had bleeding for a couple of days and he was on liquid diet as recommended by urology for a few days and today is the first time he had solid food. 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 When he turned back, he felt dizzy, palpitations, weak, nauseous, not feeling good and got admitted to the ER and found to be in rapid atrial fibrillation. With the Cardizem drip, his heart rate improved. He is feeling better. He also had a left lower abdominal pain after his lithotripsy when he was trying to micturate and Urology prescribed him oxybutynin, that is helping him, and he has a followup appointment with urology at the end of this month. Denies any fevers. No cough, no chest pain, no shortness of breath, no headache, no blurred visions, no earache, no runny nose, no sore throat, no dysphagia. Currently, no nausea. Was constipated for a few days, but currently moving his bowels okay. Denies any blood in the stool or black stool. Denies any hematuria currently. No swelling in the legs. Admission Exam Per Admitting Provider GENERAL: The patient is of moderate build, not in acute distress. VITAL SIGNS: Temperature 36.6, pulse when he came in was 120, it is currently in 90s, respiratory rate 13, blood pressure 122/88, oxygen 100% on room air. HEENT: Pupils equal, round and reactive to light. Oral mucosa moist. NECK: No JVD, no neck masses. CARDIOVASCULAR: S1 and S2 heard. Irregularly irregular rhythm. No murmur, no gallop. RESPIRATORY SYSTEM: Normal AP diameter. No accessory muscle use. No wheezing, no crackles. ABDOMEN: Soft, bowel sounds present, nontender, no distention. CENTRAL NERVOUS SYSTEM: Cranial nerves II-XII grossly intact, nonfocal. EXTREMITIES: No edema, no erythema. Principal Diagnosis Atrial fibrillation with RVR Discharge Exam GENERAL: The patient is of moderate build, not in acute distress. HEENT: NC/AT, EOMI, Pupils equal, round and reactive to light. Oral mucosa moist. NECK: No JVD, no neck masses. CARDIOVASCULAR: S1 and S2 heard. RRR. No murmur, no gallop. RESPIRATORY SYSTEM: Normal AP diameter. No accessory muscle use. No wheezing, no crackles. ABDOMEN: Soft, bowel sounds present, nontender, no distention. NEURO: Alert and oriented and answering questions appropriately. Moves extremities spontaneously and without difficulty. EXTREMITIES: No edema, no erythema. Discharge Data Allergies Allergy/AdvReac Type Severity Reaction Status Date / Time codeine Allergy Intermediate Swelling Verified 06/20/21 22:15 Consultations 06/20/21 23:45 ED Decision to Admit Stat 06/21/21 08:00 Consult Cardiology Routine 06/21/21 12:02 Consult Urology Routine Ordered Studies 06/20/21 22:24 CT abd pelvis wo con Urgent IMPRESSION: 1. Stable hydronephrosis on the left with interval placement of ureteral stent within left collecting system. The overall decrease amount of the calculi within left renal pelvis. Persistent fat stranding surrounding left kidney. 2. Interval worsening of fat stranding surrounding stented left ureter which also extend to the left hemiabdomen. Multiple calculi along the course of the left ureteral stent, largest is measuring 4 mm in size. 3. Few calculi are seen within urinary bladder lumen near anatomical region of the right and left ureter vesicular junction. Size of the calculi are decreased since prior study. 4. Nondilated loops of bowel. Normal appendix. 5. Diverticulosis without diverticulitis. 6. Bilateral inguinal hernia, redemonstration of mild herniation of the urinary bladder to the right inguinal hernia. 7. Stable large hiatal hernia. 8. The rest of findings as above. CT angio chest PE protocol Urgent IMPRESSION: 1. No acute intrathoracic abnormality. No pulmonary emboli. 2. Cardiomegaly with fusiform mild dilation of the ascending thoracic aorta measuring 4.0 cm. 3. Large hiatal hernia. 4. Left ureteral stent. Hospital Course (1) Atrial fibrillation with RVR: (2) Anemia, iron deficiency: This is a 65-year-old male who presents with new-onset atrial fibrillation. 1. New-onset rapid atrial fibrillation: Rate is controlled with IV Cardizem on admission. [id number] score is 1 for hypertension. ER gave aspirin, was continued. Discussed with cardiology and urology given recent procedure, and started heparin for anticoagulation. Patient's anemia however worsened, and therefore heparin was stopped. Continued Cardizem drip initially, patient started on metoprolol, and converted to sinus rhythm. Troponin x3 - negative Echocardiogram - no significant valvular pathology. LV is normal in size. LV systolic function is normal. EF 60 to 65%. RV systolic function is normal. LA is mildly dilated. RA is mildly dilated. Monitor in tele. Cardiology consulted for further recommendations. Continue Toprol 25 mg twice daily, which was started during this admission For anticoagulation, continue only with aspirin 81 mg daily given patient's history of anemia, chads vascular score 1 which is intermediate for aspirin versus anticoagulation. 2. History of iron deficiency anemia with iron deficiency anemia from blood loss: Acute on chronic/blood loss anemia Says had EGD and colonoscopy 3 to 4 years ago, which was unremarkable, and then was on iron supplements and again one year ago he was found to have anemia thought to be from blood loss from his kidney stones. Follows with PCP and on iron supplements Q2D. 06/22 - H&H 7.3, repeat later that day at 7.7 06/23 Hgb 7.8 No gross hematuria however blood noted on UA Discussed with urology and also cardiology, IV heparin was stopped, as above Also discussed possibility of blood transfusion with the patient, versus iron supplement, decided to continue with iron supplements twice a day and a close follow-up with primary care doctor 3. Recurrent kidney stones: Recent lithotripsy and stent placement on the left side. Also discussed further with urology, who reviewed patient's current CT images. Follow up with urology. 4. Hypertension: Continue lisinopril. 5. Benign prostatic hypertrophy: Continue Cardura. 6. Hyperlipidemia: Continue statin. DVT Lovenox. DISPOSITION: Plan to discharge home. Follow-up with PCP and cardiology. CODE: full code. Total Time Total Time Spent Total Time Spent (In Minutes): 35 Discharge Plan Discharge Items Patient Disposition: Home - Self-Care Reason For Visit: WEAKNESS Discharge Diagnosis: Atrial fibrillation with RVR Activity: Per Instructions section Non-emergency contact: Primary Care Provider and Paper Novelty Maker Call non-emergency contact if: you have any medication questions and your symptoms worsen Follow-up/Referrals: Yuval Hammonds MD [Primary Care Provider] - (Date & Time 06/30/2021 11:00 AM Provider Yuval Hammonds MD Department Family Practice [facility] ) Diet: Heart Healthy Addtl Attending Provider Instructions: Follow-up with primary care doctor, the appointment was scheduled for you for June 30. 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 You were started on a new medication, metoprolol 25 mg twice a day. Take it as prescribed. Also as discussed, continue taking multivitamin, and iron supplement twice a day. Consider taking your iron supplement with glass of orange juice to help with iron absorption. For constipation you can continue home Dulcolax, you can also use MiraLAX which can be obtained [id number]. Pending Studies at Discharge: No Stand-Alone Forms: [facility] [employer], Work/School Release, Smoking Cessation Medications and DC Order Prescriptions: New metoprolol tartrate 25 mg Tablet 25 mg PO BID Qty: 60 RF: 0 aspirin 81 mg Tablet,Delayed Release (Dr/Ec) 81 mg PO DAILY Qty: 30 RF: 0 Continued oxybutynin chloride 5 mg tablet 5 mg PO DAILY Qty: 14 RF: 0 multivitamin Tablet 1 tab PO QAM RF: 0 atorvastatin 20 mg Tablet 20 mg PO QAM RF: 0 lisinopril [Zestril] 5 mg tablet 5 mg PO QAM RF: 0 doxazosin [Cardura] 2 mg tablet 2 mg PO QPM RF: 0 omega [id number] oil [Fish Oil] 1,000 mg (120 mg-180 mg) Capsule 1 cap PO QAM RF: 0 glucosamine-chondroitin 167-133 mg Capsule 1 cap PO QAM RF: 0 tramadol 50 mg tablet 50 mg PO Q6H PRN (Reason: pain) Qty: 20 RF: 0 naproxen sodium [Aleve] 220 mg Capsule 220 mg PO BID PRN (Reason: Pain) RF: 0 psyllium husk [Metamucil] 0.4 gram Capsule 0.8 g PO QAM RF: 0 Changed ferrous sulfate [iron] 325 mg (65 mg iron) Tablet 325 mg PO BID Qty: 0 RF: 0 Discontinued ciprofloxacin HCl [Cipro] 500 mg tablet 500 mg PO BID Qty: 6 RF: 0 Discharge Orders: Discharge Order (Routine); Ordered 06/23/21 Ordered By: Jonathan Puga Admission Data Admit Date/Time: 06/21/21 00:39 Attending Provider: Jonathan Puga Admit Provider: Humphrey Lopez Primary Care Provider: Yuval Hammonds Other Providers: Humphrey Lopez ; Jordon Kauffman ; Alec Cartwright ; Agusto Andrade ; Javon Franco ; Carlos Anguiano ; [place] ; Crissy Dejesus ; Jenny Domínguez ; Mame Shen ; Rashaad Louis ; River Restrepo ; [place] ; Jordon Caballero ; Wood Arango ; Leigh Tomas ; Jony Butler ; Bebe Krishnamurthy ; Rachele Rosado ; Myrtle Montero ; Zachary Montoya ; Javon Viveros ; Josie Snow ; Elvi Montero
--- NOTE | 2021-06-23 13:32 | Electrocardiogram Report ---
Test Reason : Blood Pressure : / mmHG Vent. Rate : 054 BPM Atrial Rate : 054 BPM P-R Int : 176 ms QRS Dur : 082 ms QT Int : 428 ms P-R-T Axes : 049 042 021 degrees QTc Int : 405 ms Sinus bradycardia Otherwise normal ECG When compared with ECG of 22-JUN-2021 07:12, No significant change was found Confirmed by Johnie Myers ([id number]) on 06/23/2021 1:31:45 PM Referred By: REFERRED SELF Confirmed By:Johnie Myers
== END 2021-06-23 13:44 | disposition home or self-care (01) | DRG 309 ==
LOC: ED 22:01 → SUATTDRO 06-21 00:39 → 1E 06-21 00:39

== ENCOUNTER 2023-06-06 07:12 | Inpatient (IN) ==
[2023-06-06] MEDS ORDERED: SODIUM CHLORIDE 0.9% 1,000 ML IV STA (07:30)
[2023-06-06] MEDS ORDERED: ONDANSETRON INJ 2 MG/ML 2 ML VIAL IV STA (07:30)
[2023-06-06] MEDS ORDERED: MoRPHine SULFATE 4 MG/ML 1 ML CARP\\VIAL IV STA (07:30)
--- NOTE | 2023-06-06 07:42 | Emergency Department Note ---
History of Present Illness General Chief complaint: Abdominal Pain Time Seen by Provider: 06/06/23 07:20 History of Present Illness 67-year-old male with past medical history significant for hypertension, hyperlipidemia, nephrolithiasis, diverticulitis, BPH who presents to the emergency department for evaluation of abdominal pain. Patient states he had right hernia repair on April 15 and ever since has been dealing with constipation. He states on Saturday he developed some left lower quadrant abdominal pain and initially thought it was secondary to a kidney stone but it moved across his whole lower belly leading him to think it was constipation. He then took a laxative on Saturday which did produce a bowel movement however it worsened his pain. Pain is now located across the whole lower abdomen. He describes it as a cramping and pressure like feeling. It does not radiate. It is worse with movements and feels better laying still. He has been having diarrhea since Saturday. He reports feeling bloated and gassy. He notes feeling dizzy with general body aches and a headache and feels dehydrated. He notes intermittent nausea, no vomiting. He does feel short of breath when the pain comes on. Denies chest pain. Denies fever/chills, urinary symptoms, hematuria, hematochezia, or melena. He reports a history of kidney stones and diverticulitis. Other than inguinal hernia repair, denies abdominal surgeries. He took Tylenol for his pain last night with minimal relief. Home Medications Medication Instructions Recorded Confirmed Type atorvastatin 20 mg tablet 20 mg PO QAM 02/09/19 06/06/23 History lisinopril 5 mg tablet (Zestril) 5 mg PO QAM 02/09/19 06/06/23 History multivitamin 1 tab PO QAM 02/09/19 06/06/23 History omega 1-eyx-[id number]-fish oil 1,000 mg 1 cap PO QAM 02/09/19 06/06/23 History (120 mg-180 mg) capsule (Fish Oil) naproxen sodium 220 mg capsule 220 mg PO BID PRN Pain 03/20/21 06/06/23 History (Aleve) psyllium husk 0.4 gram capsule 0.8 g PO QAM 03/20/21 06/06/23 History (Metamucil) metoprolol tartrate 25 mg tablet 25 mg PO BID #60 tabs 06/23/21 06/06/23 Rx aspirin 81 mg tablet,delayed 81 mg PO QAM 09/01/21 06/06/23 History release ferrous sulfate 325 mg (65 mg 325 mg PO BID 03/20/22 06/06/23 History iron) tablet (iron) fluticasone propionate 50 2 spray intranasal DAILY PRN 03/20/22 06/06/23 History mcg/actuation nasal Congestion spray,suspension potassium citrate 10 mEq (1,080 10 meq PO BID 03/20/22 06/06/23 History mg) tablet,extended release finasteride 5 mg tablet 5 mg PO QAM 04/04/23 06/06/23 History Allergies Allergy/AdvReac Type Severity Reaction Status Date / Time codeine Allergy Intermediate Swelling Verified 04/15/23 09:24 at injection site (see comments) Past Med/Surg History Medical History Anemia Hx felt r/t hematuria No known hx of blood transfusion Atrial fibrillation Follows with Dr. Anguiano Takes BB, ASA BPH (benign prostatic hyperplasia) Chipped tooth lower molar Diverticular disease GERD (gastroesophageal reflux disease) Hematuria Hiatal hernia Hyperlipidemia Hypertension Kidney stone Multiple Osteoarthritis Renal cyst R/L (under surveillance) Seasonal allergies Surgical History Fusion of spine Lumbar H/O lumbar discectomy x2 H/O transurethral resection of prostate History of arthroscopy Right knee History of bladder surgery cystolithopaxy History of colonoscopy History of cystoscopy History of esophagogastroduodenoscopy (EGD) History of lithotripsy Multiple History of mandibular surgery + jaw clicking (no locking) History of repair of rotator cuff R/L; Left Shoulder Arthroscopy, Rotator Cuff Repair (04/21/20): LMA#5 [place] [facility] [place] of tonsillectomy History of tooth extraction Family History Father Diabetes Mother Diabetes Other No family history of adverse response to anesthesia Social History Smoking Status: Never smoker Second Hand Exposure: No; Do You Dip or Chew Tobacco: No; Hx Alcohol Use: Yes Alcohol type: hard liquor Hx Substance Use: Yes (Prescription pain killers) Last Used Substance: Unknown Last Used Substance Other:: [place] never took them illegally but said he was dependent on them Preferred Language: Martiniquais Communication Ability: Effective Hearing Ability: Normal Motorcycle Tester Required: No Beliefs That Will Affect Care: None marital status: Current Living Situation: Spouse current occupational status: employed Feels Safe at Home: Yes Diet: regular Assistive Devices: Glasses Physical Exam Vital Signs Vital Signs - 24 hr 06/06/23 07:16 06/06/23 07:37 06/06/23 07:42 Temperature 36.8 C Temperature Source Temporal Artery Scan Pulse Rate 114 H 105 H Pulse Rate [Left Finger] Pulse Rate from SpO2 Sensor Respiratory Rate 18 Respiratory Effort / Characteristics Non-Labored Spontaneous Respiratory Depth Normal Respiratory Pattern Regular Blood Pressure 132/89 Blood Pressure [Left Arm] Blood Pressure Mean 103 Blood Pressure Mean [Left Arm] Pulse Oximetry 95 Oxygen Delivery Method Room Air Room Air Sepsis Recent Fever Within 48 Hours No Sepsis New/Unexplained Change in Mental Status No Sepsis Action Taken by Nursing No Action Required 06/06/23 08:01 06/06/23 09:31 06/06/23 07:40 Temperature Temperature Source Pulse Rate Pulse Rate [Left Finger] 102 H 100 H Pulse Rate from SpO2 Sensor Respiratory Rate 16 16 Respiratory Effort / Characteristics Non-Labored Non-Labored Respiratory Depth Normal Normal Respiratory Pattern Blood Pressure 145/105 H Blood Pressure [Left Arm] 152/86 H 155/86 H Blood Pressure Mean 112 Blood Pressure Mean [Left Arm] 108 109 Pulse Oximetry 95 95 Oxygen Delivery Method Room Air Room Air Sepsis Recent Fever Within 48 Hours Sepsis New/Unexplained Change in Mental Status Sepsis Action Taken by Nursing 06/06/23 07:40 06/06/23 07:48 06/06/23 07:48 Temperature Temperature Source Pulse Rate 102 H 102 H Pulse Rate [Left Finger] Pulse Rate from SpO2 Sensor 102 H 102 H Respiratory Rate 24 15 Respiratory Effort / Characteristics Respiratory Depth Respiratory Pattern Blood Pressure 153/97 H Blood Pressure [Left Arm] Blood Pressure Mean 116 Blood Pressure Mean [Left Arm] Pulse Oximetry 92 95 Oxygen Delivery Method Sepsis Recent Fever Within 48 Hours Sepsis New/Unexplained Change in Mental Status Sepsis Action Taken by Nursing 06/06/23 07:50 06/06/23 07:58 06/06/23 07:58 Temperature Temperature Source Pulse Rate 98 H 100 H Pulse Rate [Left Finger] Pulse Rate from SpO2 Sensor 98 H 100 H Respiratory Rate 16 17 Respiratory Effort / Characteristics Respiratory Depth Respiratory Pattern Blood Pressure 152/86 H Blood Pressure [Left Arm] Blood Pressure Mean 107 Blood Pressure Mean [Left Arm] Pulse Oximetry 93 95 Oxygen Delivery Method Sepsis Recent Fever Within 48 Hours Sepsis New/Unexplained Change in Mental Status Sepsis Action Taken by Nursing 06/06/23 08:00 06/06/23 08:10 06/06/23 08:20 Temperature Temperature Source Pulse Rate 101 H 101 H 101 H Pulse Rate [Left Finger] Pulse Rate from SpO2 Sensor 100 H 101 H 100 H Respiratory Rate 12 15 15 Respiratory Effort / Characteristics Respiratory Depth Respiratory Pattern Blood Pressure Blood Pressure [Left Arm] Blood Pressure Mean Blood Pressure Mean [Left Arm] Pulse Oximetry 95 91 94 Oxygen Delivery Method Sepsis Recent Fever Within 48 Hours Sepsis New/Unexplained Change in Mental Status Sepsis Action Taken by Nursing 06/06/23 08:42 06/06/23 08:50 06/06/23 09:00 Temperature Temperature Source Pulse Rate 104 H 96 H Pulse Rate [Left Finger] Pulse Rate from SpO2 Sensor 104 H 103 H 97 H Respiratory Rate 21 19 Respiratory Effort / Characteristics Respiratory Depth Respiratory Pattern Blood Pressure Blood Pressure [Left Arm] Blood Pressure Mean Blood Pressure Mean [Left Arm] Pulse Oximetry 98 93 96 Oxygen Delivery Method Sepsis Recent Fever Within 48 Hours Sepsis New/Unexplained Change in Mental Status Sepsis Action Taken by Nursing 06/06/23 09:10 06/06/23 09:20 06/06/23 09:27 Temperature Temperature Source Pulse Rate 104 H 100 H 97 H Pulse Rate [Left Finger] Pulse Rate from SpO2 Sensor 97 H 100 H 98 H Respiratory Rate 15 16 20 Respiratory Effort / Characteristics Respiratory Depth Respiratory Pattern Blood Pressure Blood Pressure [Left Arm] Blood Pressure Mean Blood Pressure Mean [Left Arm] Pulse Oximetry 90 91 92 Oxygen Delivery Method Sepsis Recent Fever Within 48 Hours Sepsis New/Unexplained Change in Mental Status Sepsis Action Taken by Nursing 06/06/23 09:27 06/06/23 09:30 06/06/23 09:30 Temperature Temperature Source Pulse Rate 96 H Pulse Rate [Left Finger] Pulse Rate from SpO2 Sensor 96 H Respiratory Rate 20 Respiratory Effort / Characteristics Respiratory Depth Respiratory Pattern Blood Pressure 124/82 155/86 H Blood Pressure [Left Arm] Blood Pressure Mean 100 109 Blood Pressure Mean [Left Arm] Pulse Oximetry 92 Oxygen Delivery Method Sepsis Recent Fever Within 48 Hours Sepsis New/Unexplained Change in Mental Status Sepsis Action Taken by Nursing 06/06/23 09:40 06/06/23 09:50 06/06/23 10:00 Temperature Temperature Source Pulse Rate 97 H 94 H Pulse Rate [Left Finger] Pulse Rate from SpO2 Sensor 97 H 94 H Respiratory Rate 17 19 Respiratory Effort / Characteristics Respiratory Depth Respiratory Pattern Blood Pressure 155/87 H Blood Pressure [Left Arm] Blood Pressure Mean 111 Blood Pressure Mean [Left Arm] Pulse Oximetry 91 92 Oxygen Delivery Method Sepsis Recent Fever Within 48 Hours Sepsis New/Unexplained Change in Mental Status Sepsis Action Taken by Nursing 06/06/23 10:00 06/06/23 10:10 Temperature Temperature Source Pulse Rate 98 H 93 H Pulse Rate [Left Finger] Pulse Rate from SpO2 Sensor 98 H 93 H Respiratory Rate 15 17 Respiratory Effort / Characteristics Respiratory Depth Respiratory Pattern Blood Pressure Blood Pressure [Left Arm] Blood Pressure Mean Blood Pressure Mean [Left Arm] Pulse Oximetry 92 91 Oxygen Delivery Method Sepsis Recent Fever Within 48 Hours Sepsis New/Unexplained Change in Mental Status Sepsis Action Taken by Nursing Constitutional: alert and oriented x3. no acute distress. nontoxic HEENT: normocephalic, atraumatic. normal conjunctiva.PERRLA. EOM's grossly intact. Neck: neck is supple, nontender. Respiratory: lungs are clear to auscultation without wheezes, rhonchi, or rales bilaterally. equal chest rise. normal respiratory effort, no accessory muscle use. Cardiovascular: normal heart sounds without murmur. regular rate and rhythm. GI: abdomen is soft, distended. Diffuse tenderness throughout abdomen, worse in left lower quadrant. No palpable masses. No rebound tenderness or guarding. No CVA tenderness MSK: Moves all 4 extremities spontaneously Peripheral vascular: extremities warm and well perfused with palpable pulses. Neuro: without focal neuro deficits. CNII-XII intact. Speech clear, tongue midline, without facial droop. Psych:appropriate mood and affect. Course Administered Medications Lactated Ringer's (Lr) 1,000 mls @ 125 mls/hr IV .Q8H [facility] Stop: 07/06/23 10:43 Last Admin: 06/06/23 11:44 Dose: 125 mls/hr Documented By: TRIXIE Piperacillin Sod/Tazobactam (Sod 4.5 gm/ Dextrose) 120 mls @ 30 mls/hr IV Q8H [facility]; Protocol Stop: 06/16/23 13:59 Last Admin: 06/06/23 21:00 Dose: 30 mls/hr Documented By: LULU Acetaminophen (Ofirmev) 1,000 mg in 100 mls @ 400 mls/hr IV Q8H [facility] Stop: 06/09/23 17:59 Last Infusion: 06/06/23 18:52 Dose: 0 mls/hr Documented By: Admin: 06/06/23 18:19 Dose: 400 mls/hr Documented By: ROBERT Metoprolol Tartrate (Metoprolol Tartrate 25 Mg Tab) 25 mg PO BID JOLYNN Stop: 07/06/23 20:59 Last Admin: 06/06/23 21:00 Dose: 25 mg Documented By: LULU Discontinued Medications Bupivacaine HCl/Epinephrine Bitart (Bupivacaine/Epinephrine 0.5% Mpf 1:200,000 10 Ml Vial) Confirm Administered Dose 20 ml .ROUTE .STK-MED ONE Stop: 06/06/23 12:13 Last Admin: 06/06/23 15:07 Dose: 20 ml Documented By: [id number] Sodium Chloride (Nss 1000ml) 1,000 mls @ 999 mls/hr IV .Q1H1M ST[facility] Stop: 06/06/23 08:30 Last Infusion: 06/06/23 08:58 Dose: 0 mls/hr Documented By: Admin: 06/06/23 07:49 Dose: 999 mls/hr Documented By: FINA Piperacillin Sod/Tazobactam Sod (Zosyn) 4.5 gm in 120 mls @ 240 mls/hr IV NOW ONE Stop: 06/06/23 09:37 Last Infusion: 06/06/23 09:45 Dose: 0 mls/hr Documented By: Admin: 06/06/23 09:15 Dose: 240 mls/hr Documented By: FINA Piperacillin Sod/Tazobactam (Sod 4.5 gm/ Dextrose) 120 mls @ 30 mls/hr IV NOW ONE; Protocol Stop: 06/06/23 17:44 Last Infusion: 06/06/23 16:40 Dose: 0 mls/hr Documented By: Admin: 06/06/23 13:50 Dose: 30 mls/hr Documented By: [id number] Ioversol (Optiray 320 100ml) 92 ml IV ONCE ONE Stop: 06/06/23 08:37 Last Admin: 06/06/23 08:36 Dose: 92 ml Documented By: PLB Morphine Sulfate (Morphine Sulfate 4 Mg/Ml 1 Ml Carp\Vial) 4 mg IV NOW STA Stop: 06/06/23 07:31 Last Admin: 06/06/23 07:49 Dose: 4 mg Documented By: NRB Ondansetron HCl (Ondansetron Inj 2 Mg/Ml 2 Ml Vial) 4 mg IV NOW STA Stop: 06/06/23 07:31 Last Admin: 06/06/23 07:49 Dose: 4 mg Documented By: NRB Medical Decision Making Differential Diagnosis diverticulitis, obstruction, perforation, nephrolithiasis, UTI, gastroenteritis, mesenteric ischemia, aortic pathology, inflammatory bowel disease, renal colic, PUD, pancreatitis, biliary pathology, hernia, volvulus, constipation, as well as other pathologies. Laboratory Data Attestation: I reviewed the patient's lab results. 06/06/23 07:30 06/06/23 07:30 Lab Results 06/06/23 06/06/23 06/06/23 Range/Units 07:30 07:30 07:30 WBC 12.80 H (4.8-10.8) K/ul RBC 4.78 (4.70-6.10) M/uL Hgb 14.8 (14.0-18.0) g/dl Hct 43.8 (42.0-52.0) % MCV 91.6 (80.0-100.0) fL MCH 31.0 (25.0-34.0) pg MCHC 33.8 (32.0-36.0) g/dL RDW Std Deviation 46.9 H (36.4-46.3) fL RDW Coeff of Cj 14.1 (11.5-14.5) % Plt Count 219 (130-400) K/uL MPV 9.1 L (9.4-12.4) fL Immature Gran % (Auto) 0.5 % Neut % (Auto) 94.7 % Lymph % (Auto) 1.2 % [place] % (Auto) 3.4 % Eos % (Auto) 0.0 % Baso % (Auto) 0.2 % Neut # (Auto) 12.13 H (1.40-6.50) K/uL Lymph # (Auto) 0.15 L (1.2-3.4) K/uL [place] # (Auto) 0.43 (0.11-0.59) K/uL Eos # (Auto) 0.00 (0-0.50) K/uL Baso # (Auto) 0.02 (0-0.2) K/uL Immature Gran # (Auto) 0.07 (0.01-0.20) K/uL [place]oh[place] Bodies 1+ Polychromasia 1+ Tear Drop Cells 1+ Echinocytes 1+ Sodium 135 L (136-145) mmol/L Potassium 4.2 (3.5-5.1) mmol/L Chloride 102 (98-107) mmol/L Carbon Dioxide 25 (21-32) mmol/L Anion Gap 8 (3-11) BUN 10 (6-23) mg/dl Creatinine 0.78 (0.6-1.4) mg/dl Est Cr Clr Drug Dosing Not Reportable Est GFR ( Amer) 109.8 ml/min Est GFR (Non-Af Amer) 94.7 ml/min BUN/Creatinine Ratio 12.8 (10-20) Glucose 156 H (70-99(Fasting)) mg/dl Lactate (0.4-2.0) mmol/L Calcium 9.3 (8.6-10.3) mg/dl Total Bilirubin 1.8 H (0.2-1.0) mg/dl AST 19 (13-39) U/L ALT 20 (7-52) U/L Alkaline Phosphatase 74 (34-104) U/L Total Protein 6.7 (6.0-8.3) gm/dl Albumin 3.7 (3.4-5.0) gm/dl Globulin 3.0 (2.5-4.0) gm/dl Albumin/Globulin Ratio 1.2 (0.9-2) Lipase 6 L (11-82) U/L Urine Color Dark Yellow Urine Appearance Clear (Clear) Urine pH 7.5 (4.5-7.5) Ur Specific [place] 1.024 (1.000-1.030) Urine Protein 1+ H (Negative) Urine Glucose (UA) Negative (Negative) Urine Ketones 3+ H (Negative) Urine Blood 1+ H (Negative) Urine Nitrite Negative (Negative) Urine Bilirubin Negative (Negative) Urine Urobilinogen Negative (Negative) Ur Leukocyte Esterase Trace H (Negative) Urine WBC (Auto) 5-10 H (0-5) /hpf Urine RBC (Auto) 10-30 H (0-4) /hpf U Hyaline Cast (Auto) 1-5 (0-5) /lpf U Epithel Cells (Auto) >30 H (0-5) /lpf Urine Bacteria (Auto) Negative (Negative) 06/06/23 Range/Units 07:55 WBC (4.8-10.8) K/ul RBC (4.70-6.10) M/uL Hgb (14.0-18.0) g/dl Hct (42.0-52.0) % MCV (80.0-100.0) fL MCH (25.0-34.0) pg MCHC (32.0-36.0) g/dL RDW Std Deviation (36.4-46.3) fL RDW Coeff of Cj (11.5-14.5) % Plt Count (130-400) K/uL MPV (9.4-12.4) fL Immature Gran % (Auto) % Neut % (Auto) % Lymph % (Auto) % [place] % (Auto) % Eos % (Auto) % Baso % (Auto) % Neut # (Auto) (1.40-6.50) K/uL Lymph # (Auto) (1.2-3.4) K/uL [place] # (Auto) (0.11-0.59) K/uL Eos # (Auto) (0-0.50) K/uL Baso # (Auto) (0-0.2) K/uL Immature Gran # (Auto) (0.01-0.20) K/uL Dohle Bodies Polychromasia Tear Drop Cells Echinocytes Sodium (136-145) mmol/L Potassium (3.5-5.1) mmol/L Chloride (98-107) mmol/L Carbon Dioxide (21-32) mmol/L Anion Gap (3-11) BUN (6-23) mg/dl Creatinine (0.6-1.4) mg/dl Est Cr Clr Drug Dosing Est GFR ( Amer) ml/min Est GFR (Non-Af Amer) ml/min BUN/Creatinine Ratio (10-20) Glucose (70-99(Fasting)) mg/dl Lactate 1.7 (0.4-2.0) mmol/L Calcium (8.6-10.3) mg/dl Total Bilirubin (0.2-1.0) mg/dl AST (13-39) U/L ALT (7-52) U/L Alkaline Phosphatase (34-104) U/L Total Protein (6.0-8.3) gm/dl Albumin (3.4-5.0) gm/dl Globulin (2.5-4.0) gm/dl Albumin/Globulin Ratio (0.9-2) Lipase (11-82) U/L Urine Color Urine Appearance (Clear) Urine pH (4.5-7.5) Ur Specific [place] (1.000-1.030) Urine Protein (Negative) Urine Glucose (UA) (Negative) Urine Ketones (Negative) Urine Blood (Negative) Urine Nitrite (Negative) Urine Bilirubin (Negative) Urine Urobilinogen (Negative) Ur Leukocyte Esterase (Negative) Urine WBC (Auto) (0-5) /hpf Urine RBC (Auto) (0-4) /hpf U Hyaline Cast (Auto) (0-5) /lpf U Epithel Cells (Auto) (0-5) /lpf Urine Bacteria (Auto) (Negative) Imaging Data My Impression: Chest x-ray per my interpretation without focal consolidation, pneumothorax, pleural effusion Radiologist's Impression: Chest X-Ray 06/06/23 07:30 XR chest 1V portable CLINICAL HISTORY: Abdominal pain. COMPARISON STUDY: Chest CT June 20, 2021 chest radiograph March 21, 2022. FINDINGS: No pneumothorax or pleural effusion is present. A hiatal hernia is again noted. Adjacent left basilar opacity represents atelectasis. Cardiomediastinal silhouette is stable. There is no evidence for pulmonary edema. Appearance of the chest is unchanged. IMPRESSION: 1. No acute cardiopulmonary findings. 2. No change in appearance of the chest. Hiatal hernia with left basilar atelectasis. ACT 112: Negative or not required by law. Electronically signed by: Charles Valentino M.D. 06/06/2023 9:33 AM MDM Narrative 67-year-old male who presents to the emergency department for evaluation of left lower quadrant abdominal pain. Review of pertinent visits and past medical history performed. Vital signs in ED demonstrate tachycardia otherwise within normal limits, afebrile. IV access was established and labs are obtained. CBC demonstrates leukocytosis of 12.8 with left shift. No acute anemia. CMP without significant electrolyte abnormalities. Renal function within normal limits. LFTs and lipase unremarkable. Total bilirubin 1.8. Lactate 1.8. Urinalysis without evidence of infection and consistent with contamination with greater than 30 epithelial cells. Chest x-ray unremarkable. CT abdomen/pelvis was performed for left lower quadrant abdominal pain and demonstrates perforated acute sigmoid diverticulitis with associated gas and fluid and appears contained. No evidence of abscess. On exam, patient is nontoxic-appearing in no acute distress. His abdomen is distended and he is tender to palpation diffusely throughout the abdomen but worse in the left lower quadrant. There is no rebound tenderness or guarding. No peritonitis signs. He was medicated with IV morphine, Zofran and a 1L of fluids. Given CT results, case was discussed with general surgery physician desk assistant, Marie Mcdonald who requested admission to medicine service and will be down to evaluate patient in the emergency department. Case was discussed with hospitalist physician desk assistant, Shanda Peres, who graciously admitted patient to her service for further management. He was given dose of IV Zosyn. Upon reevaluation, patient remained stable with no new concerns. Remains tachycardic otherwise hemodynamically stable. His pain is adequately controlled with a dose of morphine. He was updated on all exam findings and test results as well as recommendations from general surgery. He is agreeable to admission to the hospital for further management and possible surgical intervention. He was admitted in stable condition. Case was discussed with ED attending Dr. Stevens Impression & Plan Perforation of sigmoid colon due to diverticulitis, Tachycardia Discharge Plan Visit Data Chief Complaint: Abdominal Pain ED Provider: Dalton Stevens ED Midlevel Provider: Amy Riddle Discharge Problem: Perforation of sigmoid colon due to diverticulitis, Tachycardia Patient Disposition: Admitted As Inpatient Discharge Instructions Interventions: ED Discharge Assessment Last Done: 06/06/23 12:16 Addendum June 06, 2023 21:15 HPI: The patient is a 67-year-old gentleman with a past medical history of paroxysmal atrial fibrillation, hypertension, hyperlipidemia, nephrolithiasis, diverticulitis BPH who presents to the emergency department for evaluation of left lower quadrant abdominal pain. The patient presents in setting of having right hernia repair on April 15 and had suspected it may be related to constipation. He denies fevers, chills, chest pain, shortness of breath, blood in his urine, bloody or black stool. A/P: WBC 12.8K with neutrophil predominance though no significant left shift. H/H and platelets within normal limits. Chemistry without metabolic acidosis. Total bili 1.8, nonspecific and LFTs otherwise unremarkable. Lipase not elevated. UA with epithelial cells and no bacteria. CT of the abdomen pelvis demonstrates perforated acute sigmoid diverticulitis with note of large pocket of gas and fluid within the mesentery which extends for 9.4 cm consistent with contained perforation. There is no rim enhancement and only a small amount of fluid noted. IV fluids and IV Zosyn administered. DANA Riddle reviewed with general surgery and patient will be admitted to medicine service and they will evaluate for further management. Patient was admitted to [facility] service. Further management per general surgery and admitting team. I was consulted by the Advanced Practice Provider.I performed a substantive portion of the visit.This includes aspects of the HPI, MDM, diagnostic interpretations, and disposition/plan. I discussed the case with the DANA, and agree with the findings and plan as documented in DANA Riddle's note.
[2023-06-06 07:56] LABS: Appearance Urine Clear (Clear); Bacteria Urine Automated Negative (Negative); Bilirubin Urine Negative (Negative); Blood Urine 1+ (Negative); Color Urine Dark Yellow; Epithelial Cell Urine Auto >30 /lpf (0-5); Glucose Urine UA Negative (Negative); Hematocrit (blood only) 43.8 % (42.0-52.0); Hemoglobin 14.8 g/dl (14.0-18.0); Ketones Urine 3+ (Negative); Leukocyte Esterase Urine Trace (Negative); Mean Corpuscular Hgb Conc 33.8 g/dL (32.0-36.0); Mean Corpuscular Volume 91.6 fL (80.0-100.0); Mean Platelet Volume 9.1 fL (9.4-12.4); Nitrite Urine Negative (Negative); Platelet Count 219 K/uL (130-400); Protein Urine 1+ (Negative); RDW Coefficient of Variation 14.1 % (11.5-14.5); RDW Standard Deviation 46.9 fL (36.4-46.3); Red Blood Count 4.78 M/uL (4.70-6.10); Specific Gravity Urine 1.024 (1.000-1.030); Urobilinogen Urine Negative (Negative); pH Urine 7.5 (4.5-7.5)
[2023-06-06 08:14] LABS: Alanine Aminotransferase 20 U/L (7-52); Albumin Globulin Ratio 1.2 (0.9-2); Albumin Level 3.7 gm/dl (3.4-5.0); Alkaline Phosphatase 74 U/L (34-104); Anion Gap 8 (3-11); Aspartate Aminotransferase 19 U/L (13-39); BUN Creatinine Ratio 12.8 (10-20); Bilirubin,Total 1.8 mg/dl (0.2-1.0); Blood Urea Nitrogen 10 mg/dl (6-23); Calcium 9.3 mg/dl (8.6-10.3); Carbon Dioxide 25 mmol/L (21-32); Chloride 102 mmol/L (98-107); Est GFR (African American) 109.8 ml/min; Est GFR (Non-African American) 94.7 ml/min; Glucose 156 mg/dl (70-99(Fasting)); Lipase 6 U/L (11-82); Potassium 4.2 mmol/L (3.5-5.1); Sodium 135 mmol/L (136-145); Total Protein 6.7 gm/dl (6.0-8.3)
[2023-06-06 08:16] LABS: Basophils # (auto) 0.02 K/uL (0-0.2); Basophils % (auto) 0.2 %; Dohle Bodies 1+; Echinocytes 1+; Immature Granulocytes # (auto) 0.07 K/uL (0.01-0.20); Immature Granulocytes % (auto) 0.5 %; Lymphocytes # (auto) 0.15 K/uL (1.2-3.4); Lymphocytes % (auto) 1.2 %; Monocytes # (auto) 0.43 K/uL (0.11-0.59); Monocytes % (auto) 3.4 %; Neutrophils # (auto) 12.13 K/uL (1.40-6.50); Neutrophils % (auto) 94.7 %; Polychromasia 1+; Tear Drop Cells 1+
[2023-06-06] MEDS ORDERED: OPTIRAY 320 100ml IV ONE (08:36)
--- NOTE | 2023-06-06 09:04 | CT Scan Report ---
CT OF THE ABDOMEN AND PELVIS WITH CONTRAST CLINICAL HISTORY: Left lower quadrant pain. COMPARISON STUDY: CT of the abdomen and pelvis March 20, 2022 and renal ultrasound August 23, 2022. TECHNIQUE: Following IV administration of 92 mL of Optiray, axial images of the abdomen and pelvis we re obtained from the lung bases to the proximal femurs. Images were reviewed in the axial, sagittal, and coronal planes. IV contrast was administered without complication. Automated exposure control wa s utilized for the study. A dose lowering technique was utilized adhering to the principles of ALARA . CT DOSE: 1441.66 mGy.cm FINDINGS: A hiatal with partially intrathoracic stomach is partially imaged. There is hepatic steatos is. Subcentimeter lateral segment hepatic lesion favors a cyst. There is no biliary or pancreatic juany christen dilatation. Spleen, adrenal glands and pancreas are unremarkable. Bilateral renal cysts measure u p to 6.3 cm. Multiple left renal calculi measure up to 1.2 cm. There is no hydronephrosis. There are no ureteral calculi. Multiple bladder calculi measure up to 9 mm. Calculus burden within the bladder has significantly decreased since CT of March 20, 2022. There is no evidence for a bowel obstruction. C olonic diverticulosis is noted. There is wall thickening with moderate associated inflammation and in flamed diverticulum of the proximal sigmoid colon. There is moderate adjacent extraluminal gas and fl uid which extends into the mesentery. Extraluminal pocket of gas extends for 9.4 cm within the mesent van. This contains a small amount of fluid. No rim-enhancing fluid collection is present. No addition al sites of bowel wall thickening are present. Right inguinal hernia repair with mesh is noted. There is a fat-containing left inguinal hernia. Major vasculature is patent. IMPRESSION: 1. Findings consistent with perforated acute sigmoid diverticulitis. Associated large pocket of gas a nd fluid within the mesentery which extends for 9.4 cm consistent with a contained perforation. This contains only a small amount of fluid at this time. No rim enhancement. 2. Left nephrolithiasis and multiple bladder calculi. No ureteral calculi. No hydronephrosis. Several renal cysts. 3. Partially imaged hiatal hernia. ACT 112: Negative or not required by law. Electronically signed by: Charles Valentino M.D. 06/06/2023 9:03 AM
[2023-06-06] MEDS ORDERED: PIPERACILLIN/TAZOBACTAM 4.5 GM/120 ML BAG IV ONE (09:08)
--- NOTE | 2023-06-06 09:35 | XRay Report ---
XR chest 1V portable CLINICAL HISTORY: Abdominal pain. COMPARISON STUDY: Chest CT June 20, 2021 chest radiograph March 21, 2022. FINDINGS: No pneumothorax or pleural effusion is present. A hiatal hernia is again noted. Adjacent le ft basilar opacity represents atelectasis. Cardiomediastinal silhouette is stable. There is no eviden ce for pulmonary edema. Appearance of the chest is unchanged. IMPRESSION: 1. No acute cardiopulmonary findings. 2. No change in appearance of the chest. Hiatal hernia with left basilar atelectasis. ACT 112: Negative or not required by law. Electronically signed by: Charles Valentino M.D. 06/06/2023 9:33 AM
--- NOTE | 2023-06-06 09:59 | History & Physical Report ---
Date of Service June 06, 2023 Assessment & Plan (1) Sepsis: (2) Perforated diverticulum: (3) Diverticulitis: (4) Tachycardia: Plan: - Admit to [facility] tele - CT of the abdomen reviewed showing 1. Findings consistent with perforated acute sigmoid diverticulitis. A ssociated large pocket of gas and fluid within the mesentery which extends for 9.4 cm consistent with a contained perforation. This contains only a small amount of fluid at this time. No rim enhancement. 2. Left nephrolithiasis and multiple bladder calculi. No ureteral calculi. No hydronephrosis. Several renal cysts. - tachycardia, WBC of 12.8 with left shift - Blood cultures x 2, unfortunately pt received first dose of antibiotics prior to cultures - LA 1.7 - Checking EKG stat now with tachycardia and preop - Gen Surg consulted -appreciate recs - NPO for now - Started LR at 125ml/hr, already received 1L NSS in the ER - Cont zofran, IV pain meds prn - Pt appears stable currently, will likely have surgery this afternoon. - Pt reports his and children know he is here - pending course will update family (5) Hypertension: Plan: - Monitor BP and HR with sepsis as above - Hold lisinopril for now, BP is 130/90, pt missed all morning medications - Metoprolol 25 mg BID at home - will monitor and can consider IV prn throughout today pending his course (6) Paroxysmal A-fib: Plan: - Follow with [facility] cardiology for such (7) Anemia, iron deficiency: Plan: - Iron supplementation - Hgb of 14.8 on admission DVT ppx: teds, scds CODE: FULL Dispo: From home, likely to remain in the hospital x 1-2 days A total of 76 minutes were spent with greater than 50% of that time face to face with the patient, personally reviewing all current laboratories, imaging studies, past medication reconciliation, outpatient chart review, and discussion with specialists to collaborate care for the patient with attending. Please see attending documentation for corrections and/or additions. History of Present Illness Chief Complaint: Abdominal pain Primary Care Provider: Yuval Hammonds MD This is a 67-year-old male with paroxysmal afib, HTN, HLD, iron deficiency anemia, diverticulosis, BPH who underwent recent open right inguinal hernia repair with mesh on April 15, 2023. He presents to the ER with worsening abdominal pain which started Saturday night. Pt thought this was a kidney stone as it was in the LLQ pain, but then radiated over to the RLQ. He has been having intermittent constipation, treating it with stool softeners, Metamucil and laxatives due to taking oxycodone for pain. He had multiple small bowel movements earlier this week, and on Saturday had large bowel movement with use of stool softener/laxative, he describes increasing bloating and discomfort on Saturday night, and continued pain came to the ER. He had a headache in the past day, admits to having generalized malaise, weakness, some chills but no fevers. Pt admits to having diarrhea since having the large movement on Saturday. Denies any dark tarry stools or BRBPR at this time. Pt also admits to having darkened urine, increased frequency every 2 hours, no dysuria and no obvious hematuria. Last diverticulitis 8-10years ago. Abdominal CT include findings consistent with perforated acute sigmoid diverticulitis. Associated large pocket of gas and fluid within the mesentery which extends for 9.4 cm consistent with a contained perforation. This contains only a small amount of fluid at this time. No rim enhancement. WBC is 12 8. His lactic acid is 1.7, patient has been given pain medication, 1 L of fluid and started on IV Zosyn. Allergies Allergy/AdvReac Type Severity Reaction Status Date / Time codeine Allergy Intermediate Swelling Verified 04/15/23 09:24 at injection site (see comments) Home Medications Medication Instructions Recorded Confirmed Type atorvastatin 20 mg tablet 20 mg PO QAM 02/09/19 06/06/23 History lisinopril 5 mg tablet (Zestril) 5 mg PO QAM 02/09/19 06/06/23 History multivitamin 1 tab PO QAM 02/09/19 06/06/23 History omega 8-kmd-fue-fish oil 1,000 mg 1 cap PO QAM 02/09/19 06/06/23 History (120 mg-180 mg) capsule (Fish Oil) naproxen sodium 220 mg capsule 220 mg PO BID PRN Pain 03/20/21 06/06/23 History (Aleve) psyllium husk 0.4 gram capsule 0.8 g PO QAM 03/20/21 06/06/23 History (Metamucil) metoprolol tartrate 25 mg tablet 25 mg PO BID #60 tabs 06/23/21 06/06/23 Rx aspirin 81 mg tablet,delayed 81 mg PO QAM 09/01/21 06/06/23 History release ferrous sulfate 325 mg (65 mg 325 mg PO BID 03/20/22 06/06/23 History iron) tablet (iron) fluticasone propionate 50 2 spray intranasal DAILY PRN 03/20/22 06/06/23 History mcg/actuation nasal Congestion spray,suspension potassium citrate 10 mEq (1,080 10 meq PO BID 03/20/22 06/06/23 History mg) tablet,extended release finasteride 5 mg tablet 5 mg PO QAM 04/04/23 06/06/23 History Past Med/Surg History Medical History Anemia Hx felt r/t hematuria No known hx of blood transfusion Atrial fibrillation Follows with Dr. Anguiano Takes BB, ASA BPH (benign prostatic hyperplasia) Chipped tooth lower molar Diverticular disease GERD (gastroesophageal reflux disease) Hematuria Hiatal hernia Hyperlipidemia Hypertension Kidney stone Multiple Osteoarthritis Renal cyst R/L (under surveillance) Seasonal allergies Surgical History Fusion of spine Lumbar H/O lumbar discectomy x2 H/O transurethral resection of prostate History of arthroscopy Right knee History of bladder surgery cystolithopaxy History of colonoscopy History of cystoscopy History of esophagogastroduodenoscopy (EGD) History of lithotripsy Multiple History of mandibular surgery + jaw clicking (no locking) History of repair of rotator cuff R/L; Left Shoulder Arthroscopy, Rotator Cuff Repair (04/21/20): LMA#5 [place] [facility] [place] of tonsillectomy History of tooth extraction Family History Father Diabetes Mother Diabetes Other No family history of adverse response to anesthesia Social History Smoking Status: Never smoker Second Hand Exposure: No; Do You Dip or Chew Tobacco: No; Hx Alcohol Use: Yes Alcohol type: hard liquor Hx Substance Use: No Preferred Language: Occitan Communication Ability: Effective Hearing Ability: Normal Product Builder Required: No Beliefs That Will Affect Care: None marital status: Current Living Situation: Spouse current occupational status: employed Feels Safe at Home: Yes Diet: regular Assistive Devices: Glasses Review of Systems Review of Systems: Constitutional: No fever, sweats, admits to malaise and chills Eyes: No diplopia, no worsening or blurred vision ENT: normal hearing, no trouble swallowing Respiratory: No cough, sputum, dyspnea at rest or on exertion Cardiovascular: No chest pain, tightness or palpitations Abdomen: + LLQ pain,+ nausea, no vomiting, + diarrhea and constipation as per HPI Musculoskeletal: No joint pain, calf pain, swelling Neurologic: + generalized weakness, no numbness/tingling, or balance problems Psychiatric: No anxiety or depression Skin: No rash or itch Physical Exam Physical Exam: General: awake, alert, no apparent distress Head: Normocephalic, atraumatic ENT: PERRL, EOMI, no pharyngeal exudate, mucous membranes moist Chest: Clear to auscultation, on room air, no adventitious breath sounds Cardiac: Sinus tachycardia, no murmur, no JVD, normal peripheral pulses, good capillary refill Abdominal: Hypoactive BS x 4 quadrants, + distended, + tenderness in the LLQ, no rebound or guarding Extremities: Normal inspection, no peripheral edema or erythema, calfs nontender to palpation Psych: Normal mood and affect Neuro: AAO x 3, strength intact bilaterally and rated 5/5, no motor deficits, speech is clear, no peripheral sensory deficits Results & Data Results & Data Vital Signs (Past 12 Hours) Vital Signs Temp Pulse Pulse Resp BP BP Pulse Ox 06/06/23 09:31 100 H 16 155/86 H 95 06/06/23 08:01 102 H 16 152/86 H 95 06/06/23 07:42 105 H 06/06/23 07:37 06/06/23 07:16 36.8 C 114 H 18 132/89 95 O2 Del Method 06/06/23 09:31 Room Air 06/06/23 08:01 Room Air 06/06/23 07:42 06/06/23 07:37 Room Air 06/06/23 07:16 Room Air Laboratory Results 08/03/23 08/03/23 08/03/23 07:55 07:30 07:30 WBC RBC Hgb Hct MCV MCH MCHC RDW Std Deviation RDW Coeff of Cj Plt Count MPV Immature Gran % (Auto) Neut % (Auto) Lymph % (Auto) [place] % (Auto) Eos % (Auto) Baso % (Auto) Neut # (Auto) Lymph # (Auto) [place] # (Auto) Eos # (Auto) Baso # (Auto) Immature Gran # (Auto) Dohle Bodies Polychromasia Tear Drop Cells Echinocytes Sodium 135 L Potassium 4.2 Chloride 102 Carbon Dioxide 25 Anion Gap 8 BUN 10 Creatinine 0.78 Est Cr Clr Drug Dosing Not Reportable Est GFR ( Amer) 109.8 Est GFR (Non-Af Amer) 94.7 BUN/Creatinine Ratio 12.8 Glucose 156 H Lactate 1.7 Calcium 9.3 Total Bilirubin 1.8 H AST 19 ALT 20 Alkaline Phosphatase 74 Total Protein 6.7 Albumin 3.7 Globulin 3.0 Albumin/Globulin Ratio 1.2 Lipase 6 L Urine Color Dark Yellow Urine Appearance Clear Urine pH 7.5 Ur Specific [place] 1.024 Urine Protein 1+ H Urine Glucose (UA) Negative Urine Ketones 3+ H Urine Blood 1+ H Urine Nitrite Negative Urine Bilirubin Negative Urine Urobilinogen Negative Ur Leukocyte Esterase Trace H Urine WBC (Auto) 5-10 H Urine RBC (Auto) 10-30 H U Hyaline Cast (Auto) 1-5 U Epithel Cells (Auto) >30 H Urine Bacteria (Auto) Negative 06/06/23 07:30 WBC 12.80 H RBC 4.78 Hgb 14.8 Hct 43.8 MCV 91.6 MCH 31.0 MCHC 33.8 RDW Std Deviation 46.9 H RDW Coeff of Cj 14.1 Plt Count 219 MPV 9.1 L Immature Gran % (Auto) 0.5 Neut % (Auto) 94.7 Lymph % (Auto) 1.2 [place] % (Auto) 3.4 Eos % (Auto) 0.0 Baso % (Auto) 0.2 Neut # (Auto) 12.13 H Lymph # (Auto) 0.15 L [place] # (Auto) 0.43 Eos # (Auto) 0.00 Baso # (Auto) 0.02 Immature Gran # (Auto) 0.07 Dohle Bodies 1+ Polychromasia 1+ Tear Drop Cells 1+ Echinocytes 1+ Sodium Potassium Chloride Carbon Dioxide Anion Gap BUN Creatinine Est Cr Clr Drug Dosing Est GFR ( Amer) Est GFR (Non-Af Amer) BUN/Creatinine Ratio Glucose Lactate Calcium Total Bilirubin AST ALT Alkaline Phosphatase Total Protein Albumin Globulin Albumin/Globulin Ratio Lipase Urine Color Urine Appearance Urine pH Ur Specific [place] Urine Protein Urine Glucose (UA) Urine Ketones Urine Blood Urine Nitrite Urine Bilirubin Urine Urobilinogen Ur Leukocyte Esterase Urine WBC (Auto) Urine RBC (Auto) U Hyaline Cast (Auto) U Epithel Cells (Auto) Urine Bacteria (Auto) Diagnostic Findings Abdomen/Pelvis CT 06/06/23 07:30 CT OF THE ABDOMEN AND PELVIS WITH CONTRAST CLINICAL HISTORY: Left lower quadrant pain. COMPARISON STUDY: CT of the abdomen and pelvis March 20, 2022 and renal ultrasound August 23, 2022. TECHNIQUE: Following IV administration of 92 mL of Optiray, axial images of the abdomen and pelvis were obtained from the lung bases to the proximal femurs. Images were reviewed in the axial, sagittal, and coronal planes. IV contrast was administered without complication. Automated exposure control was utilized for the study. A dose lowering technique was utilized adhering to the principles of ALARA. CT DOSE: 1441.66 mGy.cm FINDINGS: A hiatal with partially intrathoracic stomach is partially imaged. There is hepatic steatosis. Subcentimeter lateral segment hepatic lesion favors a cyst. There is no biliary or pancreatic ductal dilatation. Spleen, adrenal glands and pancreas are unremarkable. Bilateral renal cysts measure up to 6.3 cm. Multiple left renal calculi measure up to 1.2 cm. There is no hydronephrosis. There are no ureteral calculi. Multiple bladder calculi measure up to 9 mm. Calculus burden within the bladder has significantly decreased since CT of March 20, 2022. There is no evidence for a bowel obstruction. Colonic diverticulosis is noted. There is wall thickening with moderate associated inflammation and inflamed diverticulum of the proximal sigmoid colon. There is moderate adjacent extraluminal gas and fluid which extends into the mesentery. Extraluminal pocket of gas extends for 9.4 cm within the mesentery. This contains a small amount of fluid. No rim-enhancing fluid collection is present. No additional sites of bowel wall thickening are present. Right inguinal hernia repair with mesh is noted. There is a fat-containing left inguinal hernia. Major vasculature is patent. IMPRESSION: 1. Findings consistent with perforated acute sigmoid diverticulitis. Associated large pocket of gas and fluid within the mesentery which extends for 9.4 cm consistent with a contained perforation. This contains only a small amount of fluid at this time. No rim enhancement. 2. Left nephrolithiasis and multiple bladder calculi. No ureteral calculi. No hydronephrosis. Several renal cysts. 3. Partially imaged hiatal hernia. ACT 112: Negative or not required by law. Electronically signed by: Charles Valentino M.D. 06/06/2023 9:03 AM Chest X-Ray 06/06/23 07:30 XR chest 1V portable CLINICAL HISTORY: Abdominal pain. COMPARISON STUDY: Chest CT June 20, 2021 chest radiograph March 21, 2022. FINDINGS: No pneumothorax or pleural effusion is present. A hiatal hernia is again noted. Adjacent left basilar opacity represents atelectasis. Cardiomediastinal silhouette is stable. There is no evidence for pulmonary edema. Appearance of the chest is unchanged. IMPRESSION: 1. No acute cardiopulmonary findings. 2. No change in appearance of the chest. Hiatal hernia with left basilar atelectasis. ACT 112: Negative or not required by law. Electronically signed by: Charles Valentino M.D. 06/06/2023 9:33 AM Code Status & VTE Plan Code Status Full code - discussed with pt at bedside Supervising Physician Co-Signing Physician Notes 67 yo M presents with LLQ pain and progressive abdominal discomfort and distension in the last 4-5 days. He reports a hernia surgery in April. Workup reveals a complicated diverticulitis. He is being taken to the OR this morning for an ex-lap. He denies fevers or chills and reports some constipation as noted above. Denies chest pain or shortness of breath. On exam he is in no acute distress. There is some difficulty with discomfort sitting forward. He is tachycardic and in sinus rhythm today. CV: S1/2 heard without murmur, reg rhythm, tachy rate. Lungs are CTAB, abdomen is soft, slightly distended with LLQ TTP. Mentating clearly. Labs/Imaging reviewed. Outpatient record reviewed. Mild leukocytosis with WBC 12K. Resolved anemia, chem panel within normal limits. TB slightly elevated to 1.8. CXR clear. CT a/p with contrast reveals perforated acute sigmoid diverticulitis. There is an associated large pocket of gas and fluid within the mesentery extending 9.4cm. Several renal cysts also noted. 1. Complicated acute sigmoid diverticulitis 2. PAF 3. HTN 4. BPH He is being taken to the OR for source control and continues on zosyn.EKG not yet performed but is ordered. Pt denies any concerning symptoms that would suggest underlying occult cardiac issues that have not been optimized, or issues with anesthesia in the past. No issues post-operatively with recent surgery in April. Had a provoked upper extremity blood clot in the past. Standard DvT prophylaxis is recommended post-op. He meets SIRS criteria with possible early developing sepsis. Lactate is normal. Continue with pain control and other other supportive care. He is not on anticoagulation for afib but takes baby aspirin and metoprolol. He is in sinus rhythm today. Will hold aspirin and cont metoprolol perioperatively. Agree with holding post-operative antihypertensives to avoid post operative hypotension and will add back later today or tomorrow morning. BPH is chronic and stable. Cont home medical therapy as noted above. DO Duglas (7) Anemia, iron deficiency Iron deficiency anemia type: unspecified iron deficiency Qualified Code(s): D50.9 - Iron deficiency anemia, unspecified
[2023-06-06] MEDS ORDERED: ONDANSETRON INJ 2 MG/ML 2 ML VIAL IV PRN ×3 (10:44→12:26)
[2023-06-06] MEDS ORDERED: HYDROmorphone INJ 0.5 MG/0.5 ML SYR IV PRN (11:23)
[2023-06-06] MEDS: LACTATED RINGER'S 1,000 ML IV SCH (11:44)
--- NOTE | 2023-06-06 11:53 | Surgery Consultation ---
Date of Consultation June 06, 2023 Assessment & Plan (1) Paroxysmal A-fib: (2) Tachycardia: (3) Perforated diverticulum: 67-year-old male with complicated acute diverticulitis. Afebrile at presentation with mild tachycardia. Moderate amount of air within the abdomen. There is a considerable amount of air noted on the CT imaging. While the patient is without evidence for peritonitis on physical exam the substantial amount of air within the abdomen may prolong his conservative management process and the patient is uncomfortable from this distention. We will plan for an exploratory laparoscopy, abdominal washout and drain insertion provided there is no feculent material within the abdomen or evidence for ongoing perforation with leakage. If this should be the case the procedure will be converted to a colon resection with possible colostomy and if needed possible laparotomy. The details of the procedure have been explained to the patient and consent was obtained. Strict NPO IV fluids, IV antibiotics SCDs to bilateral lower extremities. Hold chemical DVT prophylaxis for procedure. We will notify when chemical DVT prophylaxis can be initiated. History of Present Illness Reason for Consultation: Perforated diverticulitis Attending Physician: Lynda Ardon, History of Present Illness Mr. Hebert is a 67-year-old male with recent retiree from [facility] with a PMH of paroxysmal atrial fibrillation (not on anticoagulation), renal stones, bladder calculi, BPH and HTN who presented to the ED with abdominal pain that began on Saturday. He initially thought that this was secondary to kidney stones as he has had a past and/or constipation that he also experienced in the past after surgeries. He subsequently took a laxative on Saturday morning, had passage of some loose stools and a large amount of air and then that evening he began suffering from more severe abdominal pain that began to migrate from the left lower quadrant and extended across the bottom part of his abdomen. By morning he realized that this was not typical for kidney stones ordered constipation and presented to the emergency department. In the emergency department he is afebrile with some mild tachycardia and normal blood pressure. A CT of the abdomen and pelvis were performed revealing significant inflammatory changes surrounding the upper sigmoid colon along with evidence for inflamed diverticulum and a notable large pocket of air within the mesentery adjacent to this colon inflammation. This pocket of air measures just over 9 cm and contains a very small amount of fluid. Surgery was called for consultation. He has had off-and-on chills but does not like he has had any fevers. He also says he had some mild nausea and generalized body pain. He last ate at 7:00 last night. Mr. Hebert says he has a known history of diverticular disease discovered he believes on a colonoscopy. He says he has not had any issues with an episode of diverticulitis for somewhere around 10 years. The one episode he recalls roughly 10 years ago he was treated with antibiotics which resolved the acute episode. Daughter says that he gets his colonoscopies regularly every 3 years secondary to the identification of benign polyps. He would be due for his next colonoscopy in a year. Allergies Allergy/AdvReac Type Severity Reaction Status Date / Time codeine Allergy Intermediate Swelling Verified 04/15/23 09:24 at injection site (see comments) Home Medications Medication Instructions Recorded Confirmed Type atorvastatin 20 mg tablet 20 mg PO QAM 02/09/19 06/06/23 History lisinopril 5 mg tablet (Zestril) 5 mg PO QAM 02/09/19 06/06/23 History multivitamin 1 tab PO QAM 02/09/19 06/06/23 History omega 1-wkm-vaa-fish oil 1,000 mg 1 cap PO QAM 02/09/19 06/06/23 History (120 mg-180 mg) capsule (Fish Oil) naproxen sodium 220 mg capsule 220 mg PO BID PRN Pain 03/20/21 06/06/23 History (Aleve) psyllium husk 0.4 gram capsule 0.8 g PO QAM 03/20/21 06/06/23 History (Metamucil) metoprolol tartrate 25 mg tablet 25 mg PO BID #60 tabs 06/23/21 06/06/23 Rx aspirin 81 mg tablet,delayed 81 mg PO QAM 09/01/21 06/06/23 History release ferrous sulfate 325 mg (65 mg 325 mg PO BID 03/20/22 06/06/23 History iron) tablet (iron) fluticasone propionate 50 2 spray intranasal DAILY PRN 03/20/22 06/06/23 History mcg/actuation nasal Congestion spray,suspension potassium citrate 10 mEq (1,080 10 meq PO BID 03/20/22 06/06/23 History mg) tablet,extended release finasteride 5 mg tablet 5 mg PO QAM 04/04/23 06/06/23 History Patient History Medical History Anemia Hx felt r/t hematuria No known hx of blood transfusion Atrial fibrillation Follows with Dr. Silvio Brown BB, ASA BPH (benign prostatic hyperplasia) Chipped tooth lower molar Diverticular disease GERD (gastroesophageal reflux disease) Hematuria Hiatal hernia Hyperlipidemia Hypertension Kidney stone Multiple Osteoarthritis Renal cyst R/L (under surveillance) Seasonal allergies Surgical History Fusion of spine Lumbar H/O lumbar discectomy x2 H/O transurethral resection of prostate History of arthroscopy Right knee History of bladder surgery cystolithopaxy History of colonoscopy History of cystoscopy History of esophagogastroduodenoscopy (EGD) History of lithotripsy Multiple History of mandibular surgery + jaw clicking (no locking) History of repair of rotator cuff R/L; Left Shoulder Arthroscopy, Rotator Cuff Repair (04/21/20): LMA#5 + PNB at [facility] History of tonsillectomy History of tooth extraction Family History Father Diabetes Mother Diabetes Other No family history of adverse response to anesthesia Social History Smoking Status: Never smoker Second Hand Exposure: No; Do You Dip or Chew Tobacco: No; Hx Alcohol Use: Yes Alcohol type: hard liquor Hx Substance Use: No Preferred Language: Dutch Communication Ability: Effective Hearing Ability: Normal Gluer And Wedger Required: No Beliefs That Will Affect Care: None marital status: Current Living Situation: Spouse current occupational status: employed Feels Safe at Home: Yes Diet: regular Assistive Devices: Glasses Review of Systems Review of Systems: As stated above Physical Exam Constitutional: cooperative and comfortable; no acute distress, not ill appearing and not disheveled Respiratory: normal respiratory effort; no respiratory distress, no labored breathing and does not use accessory muscles Cardiovascular: Rate/Rhythm: + tachycardic (Mild) Extremities: no edema Gastrointestinal (Abdomen): Inspection/Auscultation: + abdomen distended Percussion/Palpation: + abdomen tender, + guarding (Voluntary guarding to palpation at the left lower quadrant) and abdomen soft; abdomen not rigid No peritonitis Results & Data Vital Signs (Past 12 Hours) Vital Signs Temp Pulse Pulse Resp BP BP Pulse Ox 06/06/23 11:00 93 H 17 93 06/06/23 11:00 136/90 06/06/23 10:50 96 H 23 93 06/06/23 10:40 96 H 17 93 06/06/23 10:30 93 H 19 95 06/06/23 10:20 95 H 15 94 06/06/23 10:10 93 H 17 91 06/06/23 10:00 98 H 15 92 06/06/23 10:00 155/87 H 06/06/23 09:50 94 H 19 92 06/06/23 09:40 97 H 17 91 06/06/23 09:30 96 H 20 92 06/06/23 09:30 155/86 H 06/06/23 09:27 124/82 06/06/23 09:27 97 H 20 92 06/06/23 09:20 100 H 16 91 06/06/23 09:10 104 H 15 90 06/06/23 09:00 96 H 19 96 06/06/23 08:50 104 H 21 93 06/06/23 08:42 98 06/06/23 08:20 101 H 15 94 06/06/23 08:10 101 H 15 91 06/06/23 08:00 101 H 12 95 06/06/23 07:58 152/86 H 06/06/23 07:58 100 H 17 95 06/06/23 07:50 98 H 16 93 06/06/23 07:48 153/97 H 06/06/23 07:48 102 H 15 95 06/06/23 07:40 102 H 24 92 06/06/23 07:40 145/105 H 06/06/23 09:31 100 H 16 155/86 H 95 06/06/23 08:01 102 H 16 152/86 H 95 06/06/23 07:42 105 H 06/06/23 07:37 06/06/23 07:16 36.8 C 114 H 18 132/89 95 O2 Del Method 06/06/23 11:00 06/06/23 11:00 06/06/23 10:50 06/06/23 10:40 06/06/23 10:30 06/06/23 10:20 06/06/23 10:10 06/06/23 10:00 06/06/23 10:00 06/06/23 09:50 06/06/23 09:40 06/06/23 09:30 06/06/23 09:30 06/06/23 09:27 06/06/23 09:27 06/06/23 09:20 06/06/23 09:10 06/06/23 09:00 06/06/23 08:50 06/06/23 08:42 06/06/23 08:20 06/06/23 08:10 06/06/23 08:00 06/06/23 07:58 06/06/23 07:58 06/06/23 07:50 06/06/23 07:48 06/06/23 07:48 06/06/23 07:40 06/06/23 07:40 06/06/23 09:31 Room Air 06/06/23 08:01 Room Air 06/06/23 07:42 06/06/23 07:37 Room Air 06/06/23 07:16 Room Air Laboratory Results White blood cell count 12,[address] abdomen and pelvis IMPRESSION: 1. Findings consistent with perforated acute sigmoid diverticulitis. Associated large pocket of gas and fluid within the mesentery which extends for 9.4 cm consistent with a contained perforation. This contains only a small amount of fluid at this time. No rim enhancement. 2. Left nephrolithiasis and multiple bladder calculi. No ureteral calculi. No hydronephrosis. Several renal cysts. 3. Partially imaged hiatal hernia. PG Care Time/CCT Total # of Minutes Spent Total Time Spent with Patient: Total time spent is greater than 50% in coordination of care (as documented) at patient's floor/unit and/or counseling patient: Coding [place] [address] OFFICE CONSULT LVL 40M Patient Type Established History Detailed Exam Expanded Problem Focused Medical Decision Making Moderate Complexity Diagnoses Paroxysmal A-fib I48.0 Tachycardia R00.0 Perforated diverticulum K57.80
--- NOTE | 2023-06-06 12:00 | Anesthesiology Consultation ---
Date of Service June 06, 2023 Assessment & Plan (1) Encounter for pre-operative examination: Chart Review Chart Review: Acceptable Risk for Surgery and Patient NOT seen in Pre Admission Testing Consults Requested none History Surgery Operation Date: 06/06/23 10:35 Proposed Procedures p Exploratory Laparoscopy - Roberto Paredes DO s Possible Laparotomy Abdominal Washout, Drain Insertion, Possible Bowel Resection Possible Colostomy - Roberto Paredes DO Height/Weight Height: 6 ft Weight: 97.522 kg Allergies Allergy/AdvReac Type Severity Reaction Status Date / Time codeine Allergy Intermediate Swelling Verified 04/15/23 09:24 at injection site (see comments) Medications Home Medications Medication Instructions Recorded Confirmed Last Taken atorvastatin 20 mg tablet 20 mg PO QAM 02/09/19 06/06/23 06/05/23 lisinopril 5 mg tablet (Zestril) 5 mg PO QAM 02/09/19 06/06/23 06/05/23 multivitamin 1 tab PO QAM 02/09/19 06/06/23 06/05/23 omega 8-axq-zwp-fish oil 1,000 mg 1 cap PO QAM 02/09/19 06/06/23 06/05/23 (120 mg-180 mg) capsule (Fish Oil) naproxen sodium 220 mg capsule 220 mg PO BID PRN Pain 03/20/21 06/06/23 06/05/21 (Aleve) psyllium husk 0.4 gram capsule 0.8 g PO QAM 03/20/21 06/06/23 06/05/23 (Metamucil) metoprolol tartrate 25 mg tablet 25 mg PO BID #60 tabs 06/23/21 06/06/23 06/05/23 aspirin 81 mg tablet,delayed 81 mg PO QAM 09/01/21 06/06/23 06/05/23 release ferrous sulfate 325 mg (65 mg 325 mg PO BID 03/20/22 06/06/23 06/05/23 iron) tablet (iron) fluticasone propionate 50 2 spray intranasal DAILY PRN 03/20/22 06/06/23 Unknown mcg/actuation nasal Congestion spray,suspension potassium citrate 10 mEq (1,080 10 meq PO BID 03/20/22 06/06/23 06/05/23 mg) tablet,extended release finasteride 5 mg tablet 5 mg PO QAM 04/04/23 06/06/23 06/05/23 Active Medications Generic Name Dose Route Start Last Admin Trade Name Ifrah PRN Reason Stop Dose Admin Lactated Ringer's 1,000 mls @ 125 mls/hr 06/06/23 10:44 06/06/23 11:44 Lr IV 07/06/23 10:43 125 mls/hr .Q8H JOLYNN Administration Past Medical History Medical History Anemia Hx felt r/t hematuria No known hx of blood transfusion Atrial fibrillation Follows with Dr. Silvio Brown BB, ASA BPH (benign prostatic hyperplasia) Chipped tooth lower molar Diverticular disease GERD (gastroesophageal reflux disease) Hematuria Hiatal hernia Hyperlipidemia Hypertension Kidney stone Multiple Osteoarthritis Renal cyst R/L (under surveillance) Seasonal allergies Past Family History Family History Father Diabetes Mother Diabetes Other No family history of adverse response to anesthesia Past Surgical History Surgical History Fusion of spine Lumbar H/O lumbar discectomy x2 H/O transurethral resection of prostate History of arthroscopy Right knee History of bladder surgery cystolithopaxy History of colonoscopy History of cystoscopy History of esophagogastroduodenoscopy (EGD) History of lithotripsy Multiple History of mandibular surgery + jaw clicking (no locking) History of repair of rotator cuff R/L; Left Shoulder Arthroscopy, Rotator Cuff Repair (04/21/20): LMA#5 + PNB at [facility] [place] History of tonsillectomy History of tooth extraction Social History Smoking Status: Never smoker Do You Dip or Chew Tobacco: No Hx Alcohol Use: Yes Alcohol type: hard liquor alcohol intake frequency: a few times a month Hx Substance Use: No substance use type: does not use Physical Exam Vital Signs Last Vital Signs Temp 37.4 C 06/06/23 12:16 Pulse 100 H 06/06/23 12:16 Resp 20 06/06/23 12:16 BP 140/90 06/06/23 12:16 Pulse Ox 96 06/06/23 12:16 O2 Del Method Room Air 06/06/23 12:16 Testing Laboratory Results 06/06/23 07:30 06/06/23 07:30 Urine Color Dark Yellow 06/06/23 07:30 Urine Appearance Clear (Clear) 06/06/23 07:30 Urine pH 7.5 (4.5-7.5) 06/06/23 07:30 Ur Specific [place] 1.024 (1.000-1.030) 06/06/23 07:30 Urine Protein 1+ (Negative) H 06/06/23 07:30 Urine Glucose (UA) Negative (Negative) 06/06/23 07:30 Urine Ketones 3+ (Negative) H 06/06/23 07:30 Urine Nitrite Negative (Negative) 06/06/23 07:30 Ur Leukocyte Esterase Trace (Negative) H 06/06/23 07:30 Urine WBC (Auto) 5-10 /hpf (0-5) H 06/06/23 07:30 Urine RBC (Auto) 10-30 /hpf (0-4) H 06/06/23 07:30 U Hyaline Cast (Auto) 1-5 /lpf (0-5) 06/06/23 07:30 U Epithel Cells (Auto) >30 /lpf (0-5) H 06/06/23 07:30 Urine Bacteria (Auto) Negative (Negative) 06/06/23 07:30
[2023-06-06] MEDS ORDERED: fentaNYL citrate PF 100 MCG/2 ML VIAL ONE (12:04)
[2023-06-06] MEDS ORDERED: MIDAZOLAM HCL 1 MG/ML 2ML VIAL ONE (12:04)
[2023-06-06] MEDS ORDERED: ALBUMIN HUMAN 5% 12.5 GM/250 ML VIAL IV ONE (12:11)
[2023-06-06] MEDS ORDERED: BUPIVACAINE/EPINEPHRINE 0.5% MPF 1:200,000 10 ML VIAL ONE (12:12)
[2023-06-06] MEDS ORDERED: KETAMINE 50 MG/5 ML SYRINGE ONE (12:15)
[2023-06-06] MEDS ORDERED: DEXAMETHASONE SOD INJ 4 MG/ML VIAL ONE (12:16)
[2023-06-06] MEDS ORDERED: PROPOFOL IV EMULSION 10 MG/ML 20 ML VIAL IV ONE (12:16)
[2023-06-06] MEDS ORDERED: SUCCINYLCHOLINE CHLORIDE 20 MG/ML 10 ML VIAL IV ONE (12:16)
[2023-06-06] MEDS ORDERED: ROCURONIUM BROMIDE 10 MG/ML 5 ML VIAL IV ONE (12:16)
[2023-06-06] MEDS ORDERED: LIDOCAINE 2% 2 ML VIAL/AMP(20MG/ML) INFIL ONE (12:16)
[2023-06-06] MEDS ORDERED: ONDANSETRON INJ 2 MG/ML 2 ML VIAL ONE (12:16)
[2023-06-06] MEDS ORDERED: ePHEDrine sulfate 50 MG/ML AMP IV PRN (12:26)
[2023-06-06] MEDS ORDERED: HYDROmorphone INJ 2 MG/ML SYR/VIAL IV PRN (12:26)
[2023-06-06] MEDS ORDERED: ATROPINE SULFATE 0.1 MG/ML 10ML SYR IV PRN (12:26)
[2023-06-06] MEDS ORDERED: PIPERACILLIN/TAZOBACTAM 4.5 GM in DEXTROSE 5% 100 ML IV ONE ×2 (13:16→13:45)
[2023-06-06] MEDS ORDERED: HYDROmorphone INJ 2 MG/ML SYR/VIAL ONE (13:45)
--- NOTE | 2023-06-06 14:18 | Operative Report ---
PG Post Operative Report Pre & Post Diagnosis Bladder neck contracture Operation Date: 06/06/23 10:35 <No data on this case meets the specified criteria> Bladder neck contracture I identified the patient and participated in the time-out.: Yes Procedure Operation Date: 06/06/23 10:35 Actual Procedures p Exploratory Laparoscopy, Possible Laparotomy Abdominal Washout, Drain Insertion, Possible Bowel Resection Possible Colostomy - DO kannan Grullon Cystoscopy, ureteral dilation, sanchez insertion. - Elias Damon MD Surgeon Elias Damon MD Coater Operator None Estimated Blood Loss 10 Findings See Below Normal urethra but bladder neck contracture that was roughly 14 Haitian with stones circumferentially embedded in the contracture. Urethra was dilated up to 20 Haitian and then was able to place a 16 Haitian [place] tip catheter over a wire. Specimens None Drains 16Fr [place] tip catheter Anesthesia Type General Complications none Indications 67-year-old male who is currently hospitalized due to a perforated diverticulum. Patient was on the table for a laparoscopy with possible exploratory laparotomy and nursing was unable to place a catheter. Urology was intraoperatively consulted. Patient is known to urology service as he does have a history of bladder stones and kidney stones and has followed with Dr. Arango. Description of Procedure The patient was already asleep under general anesthesia when I entered the room. They had already received Zosyn. Consent was waived as the patient was already asleep and this was emergent in nature. I attempted to place a 16 Haitian and a 14 Haitian catheter under sterile conditions but met resistance at the bladder neck. I opted to perform a cystoscopy to expedite getting a catheter in so he could have his intended surgery. I advanced a flexible cystoscope through the urethra which was normal until I encountered the bladder neck which had a roughly 14 Haitian bladder neck contracture that was embedded with stones. I was unable to advance the scope into the bladder. I advanced a Super Stiff wire through the scope and confirmed this in the bladder and then remove the wire. I attempted to advance a 14 and a 16 Haitian [place] tip catheter but was unsuccessful so I elected to dilate the patient. Using S dilators I sequentially dilated him from 14-20 Haitian. I was then able to advance a 16 Haitian [place] tip catheter into the bladder and removed the wire. Light pink urine drained. I inflated the balloon with 10 cc of sterile water and set it to gravity drainage. I turned the case over to the general surgeons. I attest to the content of the Intraoperative Record and any orders documented therein. Any exceptions are noted below.
[2023-06-06] MEDS ORDERED: SUGAMMADEX SODIUM 200 MG/2 ML VIAL IV ONE (14:26)
[2023-06-06] MEDS ORDERED: PHENYLEPHRINE HCL 10 MG/ML VIAL ONE (14:44)
--- NOTE | 2023-06-06 15:28 | Operative Report ---
PG Post Operative Report Pre & Post Diagnosis Operation Date: 06/06/23 10:35 Pre-Op Diagnosis: Perforated diverticulum. Post-Op Diagnosis: Perforated diverticulum. I identified the patient and participated in the time-out.: Yes Procedure Operation Date: 06/06/23 10:35 Actual Procedures p Exploratory Laparoscopy, Abdominal Washout, Drain Insertion, lysis of adhesions. - Roberto Paredes DO s Cystoscopy, ureteral dilation, sanchez insertion. - Elias Damon MD Surgeon Roberto Paredes DO Fagoter CORIN Lin Estimated Blood Loss 10 Findings See Below And pain and checked epiploica at the site of perforation involving the upper sigmoid colon. Necrosis of the pericolonic fatty tissue at this location with breakdown of fatty tissue causing air and a small amount of fluid in between the tissues. There is no evidence for active, kam perforation. Specimens None Drains 10 Burkinan IRA Anesthesia Type General Complications none None Indications Complicated perforated diverticulitis moderate amount of air in the abdomen. Description of Procedure The patient was brought back to the operating room placed on the operating room table in supine position. SCDs were applied to bilateral lower extremities. He was connected to cardiac and oxygen monitoring by anesthesia. He was administered supplemental O2 and was administered general anesthesia after which a secure airway was established. Nursing reports multiple attempts at inserting a Sanchez catheter which were unsuccessful. An intraoperative consult to urology was made to. Dr. Damon presented and was able to establish a Sanchez catheter after cystoscopy and dilation. The details of this procedure can be found in a separate operative report. The abdomen was then prepped and draped in typical sterile fashion and a timeout was conducted. A small stab incision was made with an 11 blade at the right upper quadrant and a Veress needle was used to access the intra-abdominal space. This access was confirmed with a saline drop test and a 5 mm trocar was inserted with direct visualization using a 5 mm laparoscope and a 5 mm Visiport trocar. 2 additional 5 mm trocars were inserted along the right side of the abdomen, mid abdomen and right lower quadrant. The intra-abdominal space was inspected. There was a significant amount of redness on the anterior abdominal wall noted in the area of the sigmoid colon. There was thickened epiploica noted around this region. There was a very small amount of fibrinous exudate on 1 epiploica in particular. This was mobilized to expose an area of necrotic fatty tissue with stranding, an air pocket and a small amount of fluid adjacent to the sigmoid colon. This was accessed and copiously irrigated. There was no evidence of a direct hold to the sigmoid colon or active leakage from kam perforation. There was very thickened mesenteric tissue that was adhesed to the anterior abdominal wall in the lower pelvis. This was the area that was suspected to contain the large amount of air that was seen on CT. These adhesions were taken down so that this area could also be well inspected. The suction was used to suction from within his area of mesentery as well apply gentle pressure bluntly to encourage any potential residual air to be expelled. After taking down the is lower abdominal midline adhesions the pelvis was able to be inspected. No purulent fluid was encountered here either. The entire region was again copiously irrigated and suctioned with at least 2 L of fluid. The left upper quadrant right upper quadrant and right lower quadrants were all inspected and suctioned as well of irrigant. A 10 Burkinan IRA drain was inserted at the left lower quadrant extending from the area of suspected perforation to the pelvis. Once this drain was and the plan position, omental tissue was brought to the area to the provide coverage. IRA drain was sutured in place with silk suture. CO2 insufflation was discontinued, the omentum was held towards the pelvis with a grasper and pneumoperitoneum was evacuated. The trocars were removed and the incisions were closed using 4-0 Vicryl suture. The incisions were sealed with Dermabond skin glue and a drain sponge was used to come the left lower quadrant IRA drain site. The Sanchez will remain in place as per urology who will manage the Sanchez. Thus the Sanchez should stay in place postoperatively until otherwise directed by urology. The patient tolerated the procedure well. He was awakened from anesthesia, the secure airway was removed and he was transferred to recovery in stable condition. I attest to the content of the Intraoperative Record and any orders documented therein. Any exceptions are noted below.
--- NOTE | 2023-06-06 16:39 | Anesthesiology Progress Note ---
Date of Service June 06, 2023 Anesthesia Post Procedure Vital Signs Vital Signs: Temp Pulse Pulse Pulse Resp BP BP 06/06/23 16:25 98.1 F 99 H 18 06/06/23 16:15 97 H 20 06/06/23 16:05 92 H 13 06/06/23 15:55 96 H 17 06/06/23 15:45 97 H 17 06/06/23 15:35 100 H 16 06/06/23 15:26 96.8 F L 109 H 19 06/06/23 12:16 99.3 F 100 H 20 140/90 06/06/23 11:50 99 H 15 06/06/23 11:43 96 H 15 06/06/23 11:31 147/94 H 06/06/23 11:31 95 H 19 06/06/23 11:30 95 H 20 06/06/23 11:20 97 H 20 06/06/23 11:10 94 H 15 06/06/23 11:00 93 H 17 06/06/23 11:00 136/90 06/06/23 10:50 96 H 23 06/06/23 10:40 96 H 17 06/06/23 10:30 93 H 19 06/06/23 10:20 95 H 15 06/06/23 10:10 93 H 17 06/06/23 10:00 98 H 15 06/06/23 10:00 155/87 H 06/06/23 09:50 94 H 19 06/06/23 09:40 97 H 17 06/06/23 09:30 96 H 20 06/06/23 09:30 155/86 H 06/06/23 09:27 124/82 06/06/23 09:27 97 H 20 06/06/23 09:20 100 H 16 06/06/23 09:10 104 H 15 06/06/23 09:00 96 H 19 06/06/23 08:50 104 H 21 06/06/23 08:42 06/06/23 08:20 101 H 15 06/06/23 08:10 101 H 15 06/06/23 08:00 101 H 12 06/06/23 07:58 152/86 H 06/06/23 07:58 100 H 17 06/06/23 07:50 98 H 16 06/06/23 07:48 153/97 H 06/06/23 07:48 102 H 15 06/06/23 07:40 102 H 24 06/06/23 07:40 145/105 H 06/06/23 09:31 100 H 16 155/86 H 06/06/23 08:01 102 H 16 152/86 H 06/06/23 07:42 105 H 06/06/23 07:37 06/06/23 07:16 98.2 F 114 H 18 132/89 BP Pulse Ox O2 Del Method O2 Flow Rate 06/06/23 16:25 118/80 92 Nasal Cannula 3 06/06/23 16:15 127/76 92 Nasal Cannula 3 06/06/23 16:05 115/81 91 Nasal Cannula 2 06/06/23 15:55 113/77 93 Oxymask 6 06/06/23 15:45 115/76 93 Oxymask 6 06/06/23 15:35 114/77 93 Oxymask 10 06/06/23 15:26 154/91 H 94 Oxymask 10 06/06/23 12:16 96 Room Air 06/06/23 11:50 06/06/23 11:43 06/06/23 11:31 06/06/23 11:31 96 06/06/23 11:30 94 06/06/23 11:20 95 06/06/23 11:10 96 06/06/23 11:00 93 06/06/23 11:00 06/06/23 10:50 93 06/06/23 10:40 93 06/06/23 10:30 95 06/06/23 10:20 94 06/06/23 10:10 91 06/06/23 10:00 92 06/06/23 10:00 06/06/23 09:50 92 06/06/23 09:40 91 06/06/23 09:30 92 06/06/23 09:30 06/06/23 09:27 06/06/23 09:27 92 06/06/23 09:20 91 06/06/23 09:10 90 06/06/23 09:00 96 06/06/23 08:50 93 06/06/23 08:42 98 06/06/23 08:20 94 06/06/23 08:10 91 06/06/23 08:00 95 06/06/23 07:58 06/06/23 07:58 95 06/06/23 07:50 93 06/06/23 07:48 06/06/23 07:48 95 06/06/23 07:40 92 06/06/23 07:40 06/06/23 09:31 95 Room Air 06/06/23 08:01 95 Room Air 06/06/23 07:42 06/06/23 07:37 Room Air 06/06/23 07:16 95 Room Air Pain Intensity Abdomen: Pain Intensity: 2 Transfer of Care Handoff Completed per policy Notes Mental Status: alert / awake / arousable and participated in evaluation Patient Amnestic to Procedure: Yes Nausea / Vomiting: adequately controlled Pain: adequately controlled Airway Patency, RR, SpO2: stable & adequate BP & HR: stable & adequate Hydration State: stable & adequate Anesthetic Complications: no major complications apparent and Pt Satisfied with anesthetic care
[2023-06-06] MEDS ORDERED: MoRPHine SULFATE 4 MG/ML 1 ML CARP\\VIAL IV PRN (16:59)
--- NOTE | 2023-06-06 17:16 | Communication Note ---
Date of Service: June 06, 2023 Per General Surgery - sanchez cath was placed intraoperatively and should not be removed. Urology consulted and will determine when removal appropriate
[2023-06-06] MEDS: ACETAMINOPHEN 1,000 MG/100 ML VIAL IV SCH (18:19)
[2023-06-06] MEDS: PIPERACILLIN/TAZOBACTAM 4.5 GM in DEXTROSE 5% 100 ML IV SCH (21:00)
[2023-06-06] MEDS: METOPROLOL TARTRATE 25 MG TAB PO SCH (21:00)
[2023-06-07] MEDS: LACTATED RINGER'S 1,000 ML IV SCH ×3 (00:50→19:03)
[2023-06-07] MEDS: ACETAMINOPHEN 1,000 MG/100 ML VIAL IV SCH ×3 (00:50→19:06)
[2023-06-07] MEDS ORDERED: Nursing to Pharmacy Communication SCH (01:00)
[2023-06-07] MEDS: PIPERACILLIN/TAZOBACTAM 4.5 GM in DEXTROSE 5% 100 ML IV SCH ×3 (05:37→21:11)
[2023-06-07 06:56] LABS: Hematocrit (blood only) 27.5 % (42.0-52.0); Hemoglobin 9.2 g/dl (14.0-18.0); Mean Corpuscular Hemoglobin 30.9 pg (25.0-34.0); Mean Corpuscular Hgb Conc 33.5 g/dL (32.0-36.0); Mean Corpuscular Volume 92.3 fL (80.0-100.0); Mean Platelet Volume 9.8 fL (9.4-12.4); Platelet Count 131 K/uL (130-400); RDW Coefficient of Variation 14.2 % (11.5-14.5); RDW Standard Deviation 48.4 fL (36.4-46.3); Red Blood Count 2.98 M/uL (4.70-6.10); White Blood Count 6.78 K/ul (4.8-10.8)
[2023-06-07 07:18] LABS: Anion Gap 12 (3-11); BUN Creatinine Ratio 23.5 (10-20); Blood Urea Nitrogen 8 mg/dl (6-23); Calcium 6.9 mg/dl (8.6-10.3); Carbon Dioxide 15 mmol/L (21-32); Chloride 108 mmol/L (98-107); Creatinine Clr Calc Pharmacy 271.9 ml/min; Est GFR (African American) > 150.0 ml/min; Est GFR (Non-African American) 133.3 ml/min; Glucose 110 mg/dl (70-99(Fasting)); Potassium 4.1 mmol/L (3.5-5.1); Sodium 135 mmol/L (136-145)
--- NOTE | 2023-06-07 07:52 | Surgery Progress Note ---
This patient was seen and examined with the surgical PA, I agree with the plan. Date of Service June 07, 2023 Assessment & Plan (1) Perforation of sigmoid colon due to diverticulitis: Plan: POD#1 diagnostic laparoscopy with abdominal washout and drain placement WBC 6.7 (12), Hbg 9.2(14) may be some dilutional effect, will recheck CBC at noon Patient's BPs are stable and HRs ranging 70-100s Abdomen soft, expected elise incisional discomfort, IRA drain has been serosang (175cc documented). He is starting to pass flatus Urology consulted for difficult sanchez placement intraop- plan to keep in place for now, appreciate their recs Continue conservative management today in terms of IV abx, and NPO (ice okay), and IVF. Encourage ambulation and pulmonary toilet. Requesting nutrition to stop by for education on low fiber diet [facility] covering the wknd Admission and Anticipated Discharge Date Admission Date: June 06, 2023 Subjective Patient reports feeling fairly well. He was able to ambulate yesterday evening in addition to getting some sleep. He has some post op pain, but it is improvement from when he first arrived. He denies nausea/vomiting. He reports passing some flatus. Physical Exam Physical Exam: awake/alert, no distress Gastrointestinal (Abdomen): Inspection/Auscultation: + abdominal surgical incision (incisions c/d/i - skin glue, some ecchymosis noted to R lateral incisions) and + abdominal surgical drain present (serosang. ) Percussion/Palpation: + abdomen tender (expected elise incisional discomfort) and abdomen soft Results & Data Vital Signs (Past 12 Hours) Vital Signs Temp Pulse Pulse Resp BP BP Pulse Ox 06/07/23 04:31 36.9 C 107 H 18 111/79 91 06/06/23 23:44 77 06/06/23 23:33 37.0 C 74 18 114/73 92 06/06/23 22:36 06/06/23 20:15 36.8 C 82 18 121/81 92 O2 Del Method O2 Flow Rate 06/07/23 04:31 Room Air 06/06/23 23:44 06/06/23 23:33 Room Air 06/06/23 22:36 Nasal Cannula 2 06/06/23 20:15 Nasal Cannula 2 PG Care Time/CCT Total # of Minutes Spent Total Time Spent with Patient: Total time spent is greater than 50% in coordination of care (as documented) at patient's floor/unit and/or counseling patient: Coding Level of Care Code 03759 Post Operative Follow-Up Diagnoses Perforation of sigmoid colon due to diverticulitis K57.20
--- NOTE | 2023-06-07 08:41 | Urology Progress Note ---
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 Orozco patent and draining clear yellow urine Recommend maintain catheter for at least 3 days Can do voiding trial before discharge if he remains hospitalized for that time period If he is discharged prior to that, then recommend maintain catheter and f/u outpatient for voiding trial Recommend follow-up with his established urologist for ongoing management after discharge Continue supportive care, antibiotics, and management per general surgery and hospital medicine will follow peripherally, please contact our service with any additional questions Admission and Anticipated Discharge Date Admission Date: June 06, 2023 Subjective Patient seen and examined at bedside this morning, chart reviewed. He is postop day 1 status post ex-lap, abdominal washout, drain insertion and lysis of adhesions with general surgery. Orozco was unable to be placed intraoperatively. Urology was consulted and Dr. Damon performed a cystoscopy, urethral dilation and Orozco insertion. He was found to have a bladder neck contracture embedded with stones. Subjectively doing well. Denies nausea, vomiting, fever or chills. Reports some lower abdominal tenderness, but improved since arrival. Orozco patent and draining clear yellow urine. His current urologist is Dr. Michael Briones at [facility]. He is s/p TURP and cystolitholapaxy in November. He reports he has been passing some small stones when he voids. Review of Systems Constitutional: as per Subjective / HPI Gastrointestinal: as per Subjective / HPI Genitourinary: + as per Subjective / HPI Physical Exam Constitutional: no acute distress Respiratory: normal respiratory effort; no respiratory distress and no labored breathing Neurologic: moves all extremities and awake Psychiatric: Orientation: alert and oriented x 3 Genitourinary: Orozco patent and draining clear yellow urine Results & Data Vital Signs (Past 12 Hours) Vital Signs Temp Pulse Pulse Resp BP BP Pulse Ox 06/07/23 08:16 36.5 C 110 H 18 130/80 94 06/07/23 04:31 36.9 C 107 H 18 111/79 91 06/06/23 23:44 77 06/06/23 23:33 37.0 C 74 18 114/73 92 06/06/23 22:36 O2 Del Method O2 Flow Rate 06/07/23 08:16 Room Air 06/07/23 04:31 Room Air 06/06/23 23:44 06/06/23 23:33 Room Air 06/06/23 22:36 Nasal Cannula 2 PG Care Time/CCT Total # of Minutes Spent Total Time Spent with Patient: Total time spent is greater than 50% in coordination of care (as documented) at patient's floor/unit and/or counseling patient: Coding Level of Care Code 58382 SUB INP/OBS CARE 11/28MIN Diagnoses Benign localized prostatic hyperplasia with lower urinary tract symptoms (LUTS) N40.1 Bladder calculi N21.0
[2023-06-07] MEDS: METOPROLOL TARTRATE 25 MG TAB PO SCH ×2 (09:28→21:12)
[2023-06-07] MEDS: FINASTERIDE 5 MG TAB PO SCH (10:26)
--- NOTE | 2023-06-07 10:33 | XRay Report ---
XR chest 2V PA/lateral CLINICAL HISTORY: Cough. COMPARISON STUDY: Chest CT June 20, 2021. Chest radiograph June 06, 2023. FINDINGS: There is no pneumothorax or pleural effusion. A hiatal hernia is again noted. Bibasilar opa cities favor atelectasis. There is no consolidation to suggest pneumonia. Cardiomediastinal silhouett e is stable. There is no evidence for pulmonary edema. IMPRESSION: No significant change in appearance of the chest. Hiatal hernia with bibasilar opacities suggestive of atelectasis. ACT 112: Negative or not required by law. Electronically signed by: Charles Valentino M.D. 06/07/2023 10:32 AM
--- NOTE | 2023-06-07 11:03 | Hospitalist Progress Note ---
Date of Service June 07, 2023 Assessment & Plan (1) Sepsis: (2) Perforated diverticulum: (3) Diverticulitis: (4) Tachycardia: Plan: 67 year old man with paroxysmal afib, HTN, HLD, iron deficiency anemia, diverticulosis, BPH who underwent recent open right inguinal hernia repair with mesh on April 15, 2023 who presents with worsening abd pain CT of the abdomen noted findings consistent with perforated acute sigmoid diverticulitis. Associated large pocket of gas and fluid within the mesentery which extends for 9.4 cm consistent with a contained perforation. This contains only a small amount of fluid at this time. No rim enhancement. Left nephrolithiasis and multiple bladder calculi. No ureteral calculi. No hydronephrosis. Several renal cysts. He was tachycardic with leukocytosis of 12.8 on presentation Normal lactate of 1.7 Was taken to OR on 06/06/23 Difficulty with sanchez placement in OR necessitated intraop Uro consult who did cystoscopy and sanchez placement Per Op note, patient had diagnostic laparoscopy with abdominal washout and drain placement Continue IV zosyn Continue NPO Continue IVF (5) Hypertension: Plan: BP is stable Continue to hold lisinopril for now Monitor (6) Paroxysmal A-fib: Plan: Follow with [facility] cardiology for such Continue metoprolol (7) Bladder calculi: (8) Benign localized prostatic hyperplasia with lower urinary tract symptoms (LUTS): Plan: Urology recs noted s/p cystoscopy in OR and found to have a bladder neck contracture with embedded bladder stone Continue sanchez for 3 days, then do voiding trial before discharge. If discharged before then, will do outpatient voiding trial with his urologist. Continue home finasteride (9) Anemia, iron deficiency: Plan: Hb was 14.8 on admission Hb is 9.2 Hb drop likely dilutional as all cell lines dropped CXR to reassess in view of episode of coughing up some bloody sputum this morning did not show any change from admission XR. Has hiatal hernia with bibasilar opacities suggestive of atelectasis. Continue incentive spirometry. Will monitor Hb DVT ppx: TEDs. Ambulate CODE: FULL I spent a total of 55 minutes coordinating, documenting and providing care for this patient excluding time spent in performance of separately billed services Admission and Anticipated Discharge Date Admission Date: June 06, 2023 Subjective Patient seen and examined Reports low abd pain, controlled Reports bloating feeling. Denied nausea, vomiting. Reports coughing up blood this morning. Denied chest pain or shortness of breath. Reports some irritation from the sanchez. Denied fever, chills, nausea. No BM yet today Physical Exam Constitutional: + well hydrated; no acute distress Eyes: PERRL, conjunctivae normal, anicteric sclerae ENMT: external ear and nose normal, oropharynx normal Respiratory: normal respiratory effort, lungs clear to auscultation Cardiovascular: Rate/Rhythm: + tachycardic and + irregularly irregular S1 S2 Gastrointestinal (Abdomen): Soft, mildly distended, drain in LLQ, +tenderness around incision site Musculoskeletal: no cyanosis or clubbing, extremities motor strength 5/5 Neurologic: PERRL, EOMI, accommodation nl, no face palsy, no dysarthria Psychiatric: A+Ox3, euthymic affect Genitourinary: Sanchez in situ with clear yellowish urine Results & Data Results & Data Vital Signs (Past 12 Hours) Vital Signs Temp Pulse Pulse Resp BP BP Pulse Ox 06/07/23 08:16 36.5 C 110 H 18 130/80 94 06/07/23 04:31 36.9 C 107 H 18 111/79 91 06/06/23 23:44 77 06/06/23 23:33 37.0 C 74 18 114/73 92 O2 Del Method 06/07/23 08:16 Room Air 06/07/23 04:31 Room Air 06/06/23 23:44 06/06/23 23:33 Room Air Laboratory Results Abnormal lab results 06/07/23 06/07/23 Range/Units 06:05 06:05 RBC 2.98 L (4.70-6.10) M/uL Hgb 9.2 L D (14.0-18.0) g/dl Hct 27.5 L (42.0-52.0) % RDW Std Deviation 48.4 H (36.4-46.3) fL Sodium 135 L (136-145) mmol/L Chloride 108 H (98-107) mmol/L Carbon Dioxide 15 L (21-32) mmol/L Anion Gap 12 H (3-11) Creatinine 0.34 L D (0.6-1.4) mg/dl BUN/Creatinine Ratio 23.5 H (10-20) Glucose 110 H (70-99(Fasting)) mg/dl Calcium 6.9 L D (8.6-10.3) mg/dl (9) Anemia, iron deficiency Iron deficiency anemia type: unspecified iron deficiency Qualified Code(s): D50.9 - Iron deficiency anemia, unspecified
[2023-06-07 14:55] LABS: Hematocrit (blood only) 37.6 % (42.0-52.0); Hemoglobin 12.5 g/dl (14.0-18.0); Mean Corpuscular Hemoglobin 30.6 pg (25.0-34.0); Mean Corpuscular Hgb Conc 33.2 g/dL (32.0-36.0); Mean Corpuscular Volume 91.9 fL (80.0-100.0); Mean Platelet Volume 9.7 fL (9.4-12.4); Platelet Count 185 K/uL (130-400); RDW Coefficient of Variation 14.3 % (11.5-14.5); RDW Standard Deviation 48.4 fL (36.4-46.3); Red Blood Count 4.09 M/uL (4.70-6.10); White Blood Count 10.25 K/ul (4.8-10.8)
[2023-06-08] MEDS: ACETAMINOPHEN 1,000 MG/100 ML VIAL IV SCH ×3 (01:23→17:34)
[2023-06-08] MEDS ORDERED: LORazepam 0.5 MG TAB PO STA (01:31)
[2023-06-08] MEDS: LACTATED RINGER'S 1,000 ML IV SCH ×3 (03:29→21:15)
[2023-06-08] MEDS: PIPERACILLIN/TAZOBACTAM 4.5 GM in DEXTROSE 5% 100 ML IV SCH ×3 (05:32→21:11)
[2023-06-08 07:12] LABS: Hematocrit (blood only) 36.1 % (42.0-52.0); Hemoglobin 11.8 g/dl (14.0-18.0); Mean Corpuscular Hemoglobin 30.4 pg (25.0-34.0); Mean Corpuscular Hgb Conc 32.7 g/dL (32.0-36.0); Mean Platelet Volume 9.8 fL (9.4-12.4); Platelet Count 196 K/uL (130-400); RDW Coefficient of Variation 14.5 % (11.5-14.5); RDW Standard Deviation 49.8 fL (36.4-46.3); Red Blood Count 3.88 M/uL (4.70-6.10); White Blood Count 10.27 K/ul (4.8-10.8)
[2023-06-08 07:44] LABS: BUN Creatinine Ratio 23.1 (10-20); Calcium 8.1 mg/dl (8.6-10.3); Creatinine Clr Calc Pharmacy 116.1 ml/min; Est GFR (African American) 109.8 ml/min; Est GFR (Non-African American) 94.7 ml/min; Magnesium 1.6 mg/dl (1.7-2.4); Phosphorus 1.7 mg/dl (2.5-4.9); Potassium 3.7 mmol/L (3.5-5.1)
[2023-06-08] MEDS ORDERED: MAGNESIUM SULFATE / D5W 1 GM/100 ML BAG IV ONE (08:23)
[2023-06-08] MEDS ORDERED: SODIUM PHOSPHATE 3 MMOL/1 ML INFUSION IV STA (08:24)
[2023-06-08] MEDS ORDERED: SODIUM PHOSPHATE 24 MMOL in SODIUM CHLORIDE 0.9% 500 ML IV ONE (08:45)
--- NOTE | 2023-06-08 09:34 | Hospitalist Progress Note ---
Date of Service June 08, 2023 Assessment & Plan (1) Sepsis: (2) Perforated diverticulum: (3) Diverticulitis: (4) Tachycardia: Plan: 67 year old man with paroxysmal afib, HTN, HLD, iron deficiency anemia, diverticulosis, BPH who underwent recent open right inguinal hernia repair with mesh on April 15, 2023 who presents with worsening abd pain CT of the abdomen noted findings consistent with perforated acute sigmoid diverticulitis. Associated large pocket of gas and fluid within the mesentery which extends for 9.4 cm consistent with a contained perforation. This contains only a small amount of fluid at this time. No rim enhancement. Left nephrolithiasis and multiple bladder calculi. No ureteral calculi. No hydronephrosis. Several renal cysts. He was tachycardic with leukocytosis of 12.8 on presentation Normal lactate of 1.7 Was taken to OR on 06/06/23 Difficulty with sanchez placement in OR necessitated intraop Uro consult who did cystoscopy and sanchez placement Per Op note, patient had diagnostic laparoscopy with abdominal washout and drain placement POD 2 WBC is 10.8 today Continue IV zosyn Continue NPO Continue IVF Surg on board (5) Hypertension: Plan: BP is stable Continue to hold lisinopril for now Monitor (6) Paroxysmal A-fib: Plan: Follow with [facility] cardiology for such Continue metoprolol (7) Bladder calculi: (8) Benign localized prostatic hyperplasia with lower urinary tract symptoms (LUTS): Plan: Urology recs noted s/p cystoscopy in OR and found to have a bladder neck contracture with embedded bladder stone Continue sanchez for 3 days, then do voiding trial before discharge. If discharged before then, will do outpatient voiding trial with his urologist. Continue home finasteride (9) Hypophosphatemia: (10) Hypomagnesemia: Plan: Phosph is 1.7 today Mag is 1.6 today Replete and monitor (11) Anemia, iron deficiency: Plan: Hb was 14.8 on admission Hb was 9.2 post op Hb is 12.5 yesterday evening and 11.8 this morning Hb drop likely dilutional as all cell lines dropped Continue to monitor CXR to reassess in view of episode of coughing up some bloody sputum this morning did not show any change from admission XR. Has hiatal hernia with bibasilar opacities suggestive of atelectasis. Continue incentive spirometry. DVT ppx: TEDs. Ambulate CODE: FULL I spent a total of 50 minutes coordinating, documenting and providing care for this patient excluding time spent in performance of separately billed services Admission and Anticipated Discharge Date Admission Date: June 06, 2023 Subjective Patient seen and examined Reports low abd pain is much improved, mild today Reports bloating/distention is improved Denied nausea, vomiting. No coughing up blood today. Denied chest pain or shortness of breath. Denied fever, chills, nausea. No BM yet today but passing flatus Reports poor sleep last night and generalized weakness Physical Exam Constitutional: + well hydrated; no acute distress Eyes: PERRL, conjunctivae normal, anicteric sclerae ENMT: external ear and nose normal, oropharynx normal Respiratory: normal respiratory effort, lungs clear to auscultation Cardiovascular: Rate/Rhythm: + tachycardic and + irregularly irregular S1 S2 Gastrointestinal (Abdomen): Soft, mild distended, tenderness around incision site, LLQ drain in situ Musculoskeletal: no cyanosis or clubbing, extremities motor strength 5/5 Neurologic: PERRL, EOMI, accommodation nl, no face palsy, no dysarthria Psychiatric: A+Ox3, euthymic affect Results & Data Results & Data Vital Signs (Past 12 Hours) Vital Signs Temp Pulse Pulse Resp BP BP Pulse Ox 06/08/23 06:00 104 H 06/08/23 07:16 36.7 C 105 H 20 118/78 95 06/08/23 03:42 36.9 C 113 H 16 105/66 95 06/07/23 23:05 36.8 C 99 H 18 139/86 93 06/07/23 23:00 98 H 06/07/23 21:38 O2 Del Method 06/08/23 06:00 06/08/23 07:16 Room Air 06/08/23 03:42 Room Air 06/07/23 23:05 Room Air 06/07/23 23:00 06/07/23 21:38 Room Air Laboratory Results Abnormal lab results 06/07/23 06/08/23 06/08/23 Range/Units 14:19 05:59 05:59 RBC 4.09 L 3.88 L (4.70-6.10) M/uL Hgb 12.5 L D 11.8 L (14.0-18.0) g/dl Hct 37.6 L 36.1 L (42.0-52.0) % RDW Std Deviation 48.4 H 49.8 H (36.4-46.3) fL BUN/Creatinine Ratio 23.1 H (10-20) Glucose 105 H (70-99(Fasting)) mg/dl Calcium 8.1 L (8.6-10.3) mg/dl Phosphorus 1.7 L (2.5-4.9) mg/dl Magnesium 1.6 L (1.7-2.4) mg/dl (11) Anemia, iron deficiency Iron deficiency anemia type: unspecified iron deficiency Qualified Code(s): D50.9 - Iron deficiency anemia, unspecified
[2023-06-08] MEDS: FINASTERIDE 5 MG TAB PO SCH (10:08)
[2023-06-08] MEDS: METOPROLOL TARTRATE 25 MG TAB PO SCH ×2 (10:08→21:11)
--- NOTE | 2023-06-08 12:32 | Surgery Progress Note ---
Date of Service June 08, 2023 Assessment & Plan (1) Perforation of sigmoid colon due to diverticulitis: Plan: s/p diag lap with washout/drainage clears ambulate con't IV abx con't sanchez Present on Admission?: Yes Admission and Anticipated Discharge Date Admission Date: June 06, 2023 Subjective pain controlled a liitle flatus passed sanchez drainin IRA with serous drainage Review of Systems Constitutional: no fever and no chills Respiratory: no cough and no dyspnea Cardiovascular: no chest pain Gastrointestinal: + abdominal pain (improved) and + change in bowel habits; no nausea and no vomiting Genitourinary: no dysuria Musculoskeletal: no back pain Neurologic: no localized weakness and no generalized weakness Physical Exam Constitutional: WD/WN, vitals as above Respiratory: normal respiratory effort, lungs clear to auscultation Cardiovascular: RRR, no murmur, no edema Gastrointestinal (Abdomen): Inspection/Auscultation: abdomen normal to inspection, + abdomen distended and normal bowel sounds Percussion/Palpation: + abdomen tender and abdomen soft; no guarding and abdomen not rigid Skin: no rashes, warm and dry Results & Data Vital Signs (Past 12 Hours) Vital Signs Temp Pulse Pulse Resp BP BP Pulse Ox 06/08/23 10:52 36.6 C 95 H 16 137/82 94 06/08/23 06:00 104 H 06/08/23 07:16 36.7 C 105 H 20 118/78 95 06/08/23 03:42 36.9 C 113 H 16 105/66 95 O2 Del Method 06/08/23 10:52 Room Air 06/08/23 06:00 06/08/23 07:16 Room Air 06/08/23 03:42 Room Air
[2023-06-08] MEDS ORDERED: METOPROLOL TARTRATE 1 MG/ML VIAL IV STA (22:30)
[2023-06-08] MEDS ORDERED: traZODone HCL 50 MG TAB PO ONE (22:34)
[2023-06-09] MEDS ORDERED: METOPROLOL TARTRATE 1 MG/ML VIAL IV STA (00:56)
[2023-06-09] MEDS: ACETAMINOPHEN 1,000 MG/100 ML VIAL IV SCH ×2 (01:11→10:15)
[2023-06-09] MEDS: LACTATED RINGER'S 1,000 ML IV SCH ×2 (05:36→13:03)
[2023-06-09] MEDS: PIPERACILLIN/TAZOBACTAM 4.5 GM in DEXTROSE 5% 100 ML IV SCH ×3 (05:36→21:40)
[2023-06-09] MEDS ORDERED: STAT IV Infusion **Titration per Protocol STA (06:10)
[2023-06-09] MEDS ORDERED: dilTIAZem HCl 5 MG/ML 5 ML VIAL IV STA (06:10)
[2023-06-09 06:37] LABS: Hematocrit (blood only) 37.3 % (42.0-52.0); Hemoglobin 12.3 g/dl (14.0-18.0); Mean Corpuscular Hemoglobin 30.3 pg (25.0-34.0); Mean Corpuscular Volume 91.9 fL (80.0-100.0); Mean Platelet Volume 9.9 fL (9.4-12.4); Platelet Count 197 K/uL (130-400); RDW Coefficient of Variation 14.5 % (11.5-14.5); RDW Standard Deviation 48.8 fL (36.4-46.3); Red Blood Count 4.06 M/uL (4.70-6.10); White Blood Count 6.93 K/ul (4.8-10.8)
[2023-06-09] MEDS: dilTIAZem HCL 125 MG in DEXTROSE 5% 100 ML IV SCH (06:37)
[2023-06-09 07:01] LABS: BUN Creatinine Ratio 16.9 (10-20); Calcium 7.9 mg/dl (8.6-10.3); Creatinine Clr Calc Pharmacy 117.5 ml/min; Est GFR (African American) 110.4 ml/min; Est GFR (Non-African American) 95.2 ml/min; Magnesium 1.7 mg/dl (1.7-2.4); Phosphorus 2.1 mg/dl (2.5-4.9); Potassium 3.6 mmol/L (3.5-5.1)
[2023-06-09] MEDS: METOPROLOL TARTRATE 25 MG TAB PO SCH ×2 (09:28→21:41)
[2023-06-09] MEDS: FINASTERIDE 5 MG TAB PO SCH (09:28)
--- NOTE | 2023-06-09 11:01 | Surgery Progress Note ---
Date of Service June 09, 2023 Assessment & Plan (1) Perforation of sigmoid colon due to diverticulitis: Plan: keep on clears ambulate medical team managing a fib Present on Admission?: Yes Admission and Anticipated Discharge Date Admission Date: June 06, 2023 Subjective in ICU for a fib w/RVR small BM this AM pain controlled IRA serous Review of Systems Constitutional: no fever and no chills Respiratory: no dyspnea Cardiovascular: no chest pain Gastrointestinal: + abdominal pain; no nausea and no vomiting Musculoskeletal: no back pain Neurologic: no localized weakness and no generalized weakness Psychiatric: no behavioral changes Physical Exam Constitutional: WD/WN, vitals as above Neck: trachea midline Respiratory: normal respiratory effort, lungs clear to auscultation Cardiovascular: RRR, no murmur, no edema Gastrointestinal (Abdomen): Inspection/Auscultation: abdomen normal to inspection, + abdomen distended and normal bowel sounds Percussion/Palpation: + abdomen tender and abdomen soft; no guarding and abdomen not rigid Musculoskeletal: Head/Neck/Chest: normocephalic and head atraumatic Skin: no rashes, warm and dry Results & Data Vital Signs (Past 12 Hours) Vital Signs Temp Pulse Pulse Resp BP BP BP 06/09/23 07:50 104 H 151/97 H 06/09/23 07:44 36.7 C 112 H 24 141/103 H 06/09/23 03:05 36.7 C 98 H 16 118/72 06/09/23 01:21 109 H 115/76 06/09/23 01:06 123 H 116/79 06/08/23 23:13 36.7 C 53 L 18 150/78 H 06/08/23 23:08 103 H 124/87 Pulse Ox O2 Del Method 06/09/23 07:50 06/09/23 07:44 92 Room Air 06/09/23 03:05 94 Room Air 06/09/23 01:21 06/09/23 01:06 06/08/23 23:13 93 Room Air 06/08/23 23:08
[2023-06-09] MEDS ORDERED: POTASSIUM PHOS 3 MMOL/1 ML INFUSION IV STA (12:20)
--- NOTE | 2023-06-09 12:28 | Cardiology Consultation ---
Date of Consultation June 09, 2023 Assessment & Plan (1) Paroxysmal A-fib: Plan 67 yo man Presenting with perforated sigmoid diverticula Recent hernia repair +Post operative atrial fibrillation Hx of afib in the past - PAF Overnight: HR 100-120 BPM JVP elevated Plans: * Diurese * Lasix 40 mg IV x1 * K+ goal 4.5-5 * Kdur 40 meq po TID on 06/09/2023 * Mag goal >2 * 4 gm of Magnesium Sulfate on 06/09/2023 * Start Lopressor 75 mg po BID with option for TID dosing * Lisinopril - home med - OFF * As HR is better controlled with Lopressor, would wean/discontinue Diltiazem infusion * Check TSH * CHADsVasc 2 - would consider systemic anticoagulation when risk of bleeding is acceptable. Franklyn Pacheco History of Present Illness Reason for Consultation: PAF hx Patient with acute abdomen Attending Physician: Karen Verdin MD History of Present Illness 67 yo man presenting with worsening abdominal pain Reason for consultation: afib; pre/post operative evaluation CT of the abdomen reviewed - perforated acute sigmoid diverticulitis + large pocket of gas and fluid within the mesentery Taken to the OR - 06-06-23 Surgical repair/drainage performed Med Hx: * Paroxysmal afib * HTN * Hyperlipidemia * Anemia * Diverticulosis * BPH * S/P open right inguinal hernia repair with mesh 04-15-23 Allergies Allergy/AdvReac Type Severity Reaction Status Date / Time codeine Allergy Intermediate Swelling Verified 04/15/23 09:24 at injection site (see comments) Home Medications Medication Instructions Recorded Confirmed Type atorvastatin 20 mg tablet 20 mg PO QAM 02/09/19 06/06/23 History lisinopril 5 mg tablet (Zestril) 5 mg PO QAM 02/09/19 06/06/23 History multivitamin 1 tab PO QAM 02/09/19 06/06/23 History omega 3-csz-pkv-fish oil 1,000 mg 1 cap PO QAM 02/09/19 06/06/23 History (120 mg-180 mg) capsule (Fish Oil) naproxen sodium 220 mg capsule 220 mg PO BID PRN Pain 03/20/21 06/06/23 History (Aleve) psyllium husk 0.4 gram capsule 0.8 g PO QAM 03/20/21 06/06/23 History (Metamucil) metoprolol tartrate 25 mg tablet 25 mg PO BID #60 tabs 06/23/21 06/06/23 Rx aspirin 81 mg tablet,delayed 81 mg PO QAM 09/01/21 06/06/23 History release ferrous sulfate 325 mg (65 mg 325 mg PO BID 03/20/22 06/06/23 History iron) tablet (iron) fluticasone propionate 50 2 spray intranasal DAILY PRN 03/20/22 06/06/23 History mcg/actuation nasal Congestion spray,suspension potassium citrate 10 mEq (1,080 10 meq PO BID 03/20/22 06/06/23 History mg) tablet,extended release finasteride 5 mg tablet 5 mg PO QAM 04/04/23 06/06/23 History Patient History Medical History Anemia Hx felt r/t hematuria No known hx of blood transfusion Atrial fibrillation Follows with Dr. Anguiano Takes BB, ASA BPH (benign prostatic hyperplasia) Chipped tooth lower molar Diverticular disease GERD (gastroesophageal reflux disease) Hematuria Hiatal hernia Hyperlipidemia Hypertension Kidney stone Multiple Osteoarthritis Renal cyst R/L (under surveillance) Seasonal allergies Surgical History Fusion of spine Lumbar H/O lumbar discectomy x2 H/O transurethral resection of prostate History of arthroscopy Right knee History of bladder surgery cystolithopaxy History of colonoscopy History of cystoscopy History of esophagogastroduodenoscopy (EGD) History of lithotripsy Multiple History of mandibular surgery + jaw clicking (no locking) History of repair of rotator cuff R/L; Left Shoulder Arthroscopy, Rotator Cuff Repair (04/21/20): LMA#5 [place] [facility] [place] of tonsillectomy History of tooth extraction Family History Father Diabetes Mother Diabetes Other No family history of adverse response to anesthesia Social History Smoking Status: Never smoker Second Hand Exposure: No; Do You Dip or Chew Tobacco: No; Hx Alcohol Use: Yes Alcohol type: hard liquor Hx Substance Use: Yes (Prescription pain killers) Last Used Substance: Unknown Last Used Substance Other:: Hey never took them illegally but said he was dependent on them Preferred Language: Russian Communication Ability: Effective Hearing Ability: Normal 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 Beliefs That Will Affect Care: None marital status: Current Living Situation: Spouse current occupational status: employed Feels Safe at Home: Yes Diet: regular Assistive Devices: Cane and Crutches Physical Exam Physical Exam: Overweight man in NAD JVP elevated to 16 cmH20 S1S2 - Soft 2/6 systolic murmur CTA B on anterior exam + IRA drain in LLQ Fole in place No LE edema Warm and perfused Results & Data Vital Signs (Past 12 Hours) Vital Signs Temp Pulse Pulse Resp BP BP BP 06/09/23 12:01 37.4 C 115 H 24 134/90 06/09/23 09:00 116 H 06/09/23 07:50 104 H 151/97 H 06/09/23 07:44 36.7 C 112 H 24 141/103 H 06/09/23 03:05 36.7 C 98 H 16 118/72 06/09/23 01:21 109 H 115/76 06/09/23 01:06 123 H 116/79 Pulse Ox O2 Del Method 06/09/23 12:01 94 Room Air 06/09/23 09:00 06/09/23 07:50 06/09/23 07:44 92 Room Air 06/09/23 03:05 94 Room Air 06/09/23 01:21 06/09/23 01:06 Laboratory Results Cardiac Enzymes 06/09/23 Range/Units 06:18 Troponin I High Sens 8.1 (0-20) pg/ml CBC 06/09/23 Range/Units 05:28 WBC 6.93 (4.8-10.8) K/ul RBC 4.06 L (4.70-6.10) M/uL Hgb 12.3 L (14.0-18.0) g/dl Hct 37.3 L (42.0-52.0) % Plt Count 197 (130-400) K/uL Comprehensive Metabolic Panel 06/09/23 Range/Units 05:28 Sodium 141 (136-145) mmol/L Potassium 3.6 (3.5-5.1) mmol/L Chloride 108 H (98-107) mmol/L Carbon Dioxide 29 (21-32) mmol/L BUN 13 (6-23) mg/dl Creatinine 0.77 (0.6-1.4) mg/dl Glucose 76 (70-99(Fasting)) mg/dl Calcium 7.9 L (8.6-10.3) mg/dl Intake and Output 06/08/23 06/09/23 06/09/23 22:59 06:59 14:59 Intake Total 1903 / 5033 1910 / 5033 222.167 / 222.167 Output Total 1500 / 2690 1190 / 2690 51 / 51 Balance 403 / 2343 720 / 2343 171.167 / 171.167 Intake: IV 1728 / 4168 1220 / 4168 222.167 / 222.167 Acetaminophen 1,000 mg In 100 100 / 200 100 / 200 100 / 100 ml @ 400 mls/hr IV Q8H [facility] Rx#: [id number] Lactated Ringer's 1,000 ml @ 1000 / 3000 1000 / 3000 125 mls/hr IV .Q8H [facility] Rx#: [id number] Piperacillin/Tazobactam 4.5 gm 120 / 360 120 / 360 120 / 120 In Dextrose 5% 100 ml @ 30 mls/ hr IV Q8H [facility] Rx#:[id number] Sodium Phosphate 24 mmol In 508 / 508 Sodium Chloride 0.9% 500 ml @ 127 mls/hr IV ONE ONE Rx#: [id number] dilTIAZem HCL 125 mg In 2.167 / 2.167 Dextrose 5% 100 ml @ 5 MG/HR 5 mls/hr IV .Q24H [facility] Rx#: [id number] Oral 175 / 865 690 / 865 Output: Urine Amount (Catheter) 1450 / 2600 1150 / 2600 Orozco/Indwelling 1450 / 2600 1150 / 2600 Drain Output 50 / 90 40 / 90 50 / 50 Left Abdomen IRA 50 / 90 40 / 90 50 / 50 # Bowel Movements Other: Weight 100.8 kg Weight Measurement Method Standing Scale Diagnostic Findings EK06/09/2023 - Afib with nonspecific ST/T wave abnormalities
[2023-06-09] MEDS ORDERED: POTASSIUM PHOSPHATE 24 MMOL in SODIUM CHLORIDE 0.9% 500 ML IV ONE (12:30)
--- NOTE | 2023-06-09 12:43 | Electrocardiogram Report ---
Test Reason : Blood Pressure : / mmHG Vent. Rate : 108 BPM Atrial Rate : 197 BPM P-R Int : 000 ms QRS Dur : 082 ms QT Int : 338 ms P-R-T Axes : 000 051 -04 degrees QTc Int : 452 ms Atrial fibrillation with rapid ventricular response with premature ventricular or aberrantly conducte d complexes Nonspecific ST and T wave abnormality Abnormal ECG When compared with ECG of 21-MAR-2022 14:21, Atrial fibrillation has replaced Sinus rhythm Vent. rate has increased BY [address] now depressed in Anterior leads Nonspecific T wave abnormality now evident in Anterior leads QT has lengthened Confirmed by Neo Paulson ([id number]) on 06/09/2023 12:42:49 PM Referred By: REFERRED SELF Confirmed By:Gwyn Paulson
--- NOTE | 2023-06-09 12:46 | Hospitalist Progress Note ---
Date of Service June 09, 2023 Assessment & Plan (1) Sepsis: (2) Perforated diverticulum: (3) Diverticulitis: (4) Tachycardia: Plan: 67 year old man with paroxysmal afib, HTN, HLD, iron deficiency anemia, diverticulosis, BPH who underwent recent open right inguinal hernia repair with mesh on April 15, 2023 who presents with worsening abd pain CT of the abdomen noted findings consistent with perforated acute sigmoid diverticulitis. Associated large pocket of gas and fluid within the mesentery which extends for 9.4 cm consistent with a contained perforation. This contains only a small amount of fluid at this time. No rim enhancement. Left nephrolithiasis and multiple bladder calculi. No ureteral calculi. No hydronephrosis. Several renal cysts. He was tachycardic with leukocytosis of 12.8 on presentation Normal lactate of 1.7 Was taken to OR on 06/06/23 Difficulty with sanchez placement in OR necessitated intraop Uro consult who did cystoscopy and sanchez placement Per Op note, patient had diagnostic laparoscopy with abdominal washout and drain placement POD 3 Leukocytosis resolved Continue IV zosyn Tolerating clears Stop IVF Surg on board (5) Hypertension: Plan: BP is stable Continue to hold lisinopril for now Monitor (6) Paroxysmal A-fib: Plan: pAfib with RVR Currently on cardizem drip Card jadaal noted Increased lopressor to 75mg bid Wean diltiazem drip as appropriate. Will need anticoagulation once safe by Surgeon (7) Bladder calculi: (8) Benign localized prostatic hyperplasia with lower urinary tract symptoms (LUTS): Plan: Urology recs noted s/p cystoscopy in OR and found to have a bladder neck contracture with embedded bladder stone Plan for possible voiding trial tomorrow Continue home finasteride (9) Hypophosphatemia: (10) Hypomagnesemia: Plan: Phosph is 2.1 Mag is 1.7 today Replete phosp Monitor electrolytes. Will give lasix 20mg x1 (11) Anemia, iron deficiency: Plan: Hb was 14.8 on admission Hb was 9.2 post op Hb is 12.3 yesterday evening and 11.8 this morning Hb drop likely dilutional as all cell lines dropped Continue to monitor DVT ppx: TEDs. Ambulate CODE: FULL I spent a total of 50 minutes coordinating, documenting and providing care for this patient excluding time spent in performance of separately billed services Admission and Anticipated Discharge Date Admission Date: June 06, 2023 Subjective Patient seen and examined Patient was in Afib with RVR overnight upto 130-140s and required cardizem drip and transfer to PCU Reports abd pain is much improved today Tolerating clears. Reports small loose BM earlier today Denied fever, chills, nausea, cough, chest pain, SOB. Denied dizziness, headache Physical Exam Constitutional: + well hydrated; no acute distress Eyes: PERRL, conjunctivae normal, anicteric sclerae ENMT: external ear and nose normal, oropharynx normal Respiratory: normal respiratory effort, lungs clear to auscultation Cardiovascular: Rate/Rhythm: + tachycardic and + irregularly irregular S1 S2 Musculoskeletal: no cyanosis or clubbing, extremities motor strength 5/5 Neurologic: PERRL, EOMI, accommodation nl, no face palsy, no dysarthria Psychiatric: A+Ox3, euthymic affect Results & Data Results & Data Vital Signs (Past 12 Hours) Vital Signs Temp Pulse Pulse Resp BP BP BP 06/09/23 12:01 37.4 C 115 H 24 134/90 06/09/23 09:00 116 H 06/09/23 07:50 104 H 151/97 H 06/09/23 07:44 36.7 C 112 H 24 141/103 H 06/09/23 03:05 36.7 C 98 H 16 118/72 06/09/23 01:21 109 H 115/76 06/09/23 01:06 123 H 116/79 Pulse Ox O2 Del Method 06/09/23 12:01 94 Room Air 06/09/23 09:00 06/09/23 07:50 06/09/23 07:44 92 Room Air 06/09/23 03:05 94 Room Air 06/09/23 01:21 06/09/23 01:06 Laboratory Results Abnormal lab results 06/09/23 06/09/23 Range/Units 05:28 05:28 RBC 4.06 L (4.70-6.10) M/uL Hgb 12.3 L (14.0-18.0) g/dl Hct 37.3 L (42.0-52.0) % RDW Std Deviation 48.8 H (36.4-46.3) fL Chloride 108 H (98-107) mmol/L Calcium 7.9 L (8.6-10.3) mg/dl Phosphorus 2.1 L (2.5-4.9) mg/dl (11) Anemia, iron deficiency Iron deficiency anemia type: unspecified iron deficiency Qualified Code(s): D50.9 - Iron deficiency anemia, unspecified
[2023-06-09] MEDS ORDERED: METOPROLOL TARTRATE 50 MG TAB PO STA (14:08)
[2023-06-09] MEDS ORDERED: POTASSIUM CHLORIDE CRTAB 20 MEQ TABCR PO STA (14:10)
[2023-06-09] MEDS ORDERED: FUROSEMIDE INJ 20 MG/2 ML VIAL IV ONE (14:30)
[2023-06-09] MEDS: MoRPHine SULFATE 2 MG/ML CARP IV PRN (18:35)
[2023-06-10 05:07] LABS: Hematocrit (blood only) 40.1 % (42.0-52.0); Hemoglobin 13.2 g/dl (14.0-18.0); Mean Corpuscular Hemoglobin 30.3 pg (25.0-34.0); Mean Corpuscular Hgb Conc 32.9 g/dL (32.0-36.0); Mean Platelet Volume 9.7 fL (9.4-12.4); Platelet Count 199 K/uL (130-400); RDW Coefficient of Variation 14.5 % (11.5-14.5); RDW Standard Deviation 49.1 fL (36.4-46.3); Red Blood Count 4.36 M/uL (4.70-6.10); White Blood Count 8.01 K/ul (4.8-10.8)
[2023-06-10 05:24] LABS: BUN Creatinine Ratio 10.5 (10-20); Calcium 8.1 mg/dl (8.6-10.3); Creatinine Clr Calc Pharmacy 119.1 ml/min; Est GFR (Non-African American) 95.7 ml/min; Magnesium 1.7 mg/dl (1.7-2.4); Phosphorus 2.5 mg/dl (2.5-4.9); Potassium 3.6 mmol/L (3.5-5.1)
--- NOTE | 2023-06-10 07:06 | Cardiology Progress Note ---
Date of Service June 10, 2023 Assessment & Plan (1) Paroxysmal A-fib: Plan 67 yo man Presenting with perforated sigmoid diverticula Recent hernia repair +Post operative atrial fibrillation Hx of afib in the past - PAF Overnight: HR 100-120 BPM JVP elevated Plans: * Diurese - mild Volume Overload on exam * Lasix 40 mg IV x1 * K+ goal 4.5-5 * Kdur 40 meq po BID on 06/10/2023 * Mag goal >2 * 4 gm of Magnesium Sulfate on 06/10/2023 * BID electrolyte check - may need additional KDUR 40 meq if K+ is less than 4.5 on recheck (that would be his third dose for the day) * AFIB with RVR persists * Lopressor 5 mg IV X 1 * Increase standing Lopressor to 100 mg po BID/TID * Lisinopril - home med - OFF * As HR is better controlled with Lopressor, would wean/discontinue Diltiazem in fusion * TSH - WNL - 2.5 * CHADsVasc 2 - would consider systemic anticoagulation when risk of bleeding is acceptable. Franklyn Pacheco Admission and Anticipated Discharge Date Admission Date: June 06, 2023 Subjective Events overnight: * Afib with RVR overnight - HR 120's * Diltiazem infusion continuous * Beta blockers started * Abd pain improved - drain in place * Tolerating clears * Passing gas and stool * No chest pain reported Review of Systems Review of Systems: All systems reviewed & are unremarkable except as noted in HPI & below Physical Exam Physical Exam: Overweight man in NAD Glasses JVP 16 cm H20 S1S2 2/6 systolic murmur CTA B on Anterior Exam Abdomen - distended + BS, + tympany No LE edema/swelling Warm and perfusing Neurologically - no deficits noted Results & Data Vital Signs (Past 12 Hours) Vital Signs Temp Pulse Pulse Resp BP BP Pulse Ox 06/10/23 06:00 113 H 18 06/10/23 06:00 130/89 06/10/23 04:01 106 H 24 06/10/23 04:01 148/110 H 06/10/23 04:00 117 H 18 06/10/23 02:00 97 H 23 06/10/23 02:00 114/73 06/10/23 00:00 108 H 20 06/10/23 00:00 108/80 06/09/23 22:01 135 H 24 06/09/23 22:01 130/110 H 06/09/23 22:00 113 H 17 06/09/23 20:00 109 H 7 L 06/09/23 19:21 135 H 25 H 95 06/09/23 19:21 114/92 06/10/23 04:00 36.9 C 06/09/23 23:24 36.9 C 96 H 16 130/98 93 06/09/23 23:24 117 H 06/09/23 20:00 37.1 C 126 H 16 114/92 92 O2 Del Method 06/10/23 06:00 06/10/23 06:00 06/10/23 04:01 06/10/23 04:01 06/10/23 04:00 06/10/23 02:00 06/10/23 02:00 06/10/23 00:00 06/10/23 00:00 06/09/23 22:01 06/09/23 22:01 06/09/23 22:00 06/09/23 20:00 06/09/23 19:21 06/09/23 19:21 06/10/23 04:00 06/09/23 23:24 Room Air 06/09/23 23:24 06/09/23 20:00 Room Air Laboratory Results CBC 06/10/23 Range/Units 04:29 WBC 8.01 (4.8-10.8) K/ul RBC 4.36 L (4.70-6.10) M/uL Hgb 13.2 L (14.0-18.0) g/dl Hct 40.1 L (42.0-52.0) % Plt Count 199 (130-400) K/uL Comprehensive Metabolic Panel 06/10/23 Range/Units 04:29 Sodium 139 (136-145) mmol/L Potassium 3.6 (3.5-5.1) mmol/L Chloride 106 (98-107) mmol/L Carbon Dioxide 28 (21-32) mmol/L BUN 8 (6-23) mg/dl Creatinine 0.76 (0.6-1.4) mg/dl Glucose 95 (70-99(Fasting)) mg/dl Calcium 8.1 L (8.6-10.3) mg/dl Intake and Output 0806/10/23 06/10/23 22:59 06:59 14:59 Intake Total 701.083 / 2908.917 319.750 / 2908.917 120 / 120 Output Total 2146 / 5267 1270 / 5267 Balance -1444.917 / -2358.083 -950.250 / -2358.083 120 / 120 Intake: IV 701.083 / 2158.917 169.750 / 2158.917 120 / 120 Piperacillin/Tazobactam 4.5 gm 120 / 360 120 / 360 120 / 120 In Dextrose 5% 100 ml @ 30 mls/ hr IV Q8H [facility] Rx#:[id number] Potassium Phosphate 24 mmol In 508 / 508 Sodium Chloride 0.9% 500 ml @ 127 mls/hr IV ONE ONE Rx#: [id number] dilTIAZem HCL 125 mg In 73.083 / 125.000 49.750 / 125.000 Dextrose 5% 100 ml @ 5 MG/HR 5 mls/hr IV .Q24H [facility] Rx#: [id number] Oral 150 / 750 Output: Urine Amount (Catheter) 2100 / 5150 1250 / 5150 Orozco/Indwelling 2100 / 5150 1250 / 5150 Drain Output 45 / 115 20 / 115 Left Abdomen IRA 45 / 115 20 / 115 # Bowel Movements 1 / 2 Other: Weight 101.2 kg Weight Measurement Method Built in [facility]
[2023-06-10] MEDS: PIPERACILLIN/TAZOBACTAM 4.5 GM in DEXTROSE 5% 100 ML IV SCH ×3 (07:28→22:11)
[2023-06-10] MEDS: dilTIAZem HCL 125 MG in DEXTROSE 5% 100 ML IV SCH (07:29)
--- NOTE | 2023-06-10 08:28 | Surgery Progress Note ---
Date of Service June 10, 2023 Assessment & Plan (1) Perforation of sigmoid colon due to diverticulitis: Plan: POD#4 diagnostic laparoscopy, abdominal washout, placement of drain WBC 8,Hbg 13. Afib. Continue IV zosyn while in house Events noted from wknd...in ICU for afib. cardiology on board He has been tolerating clears, no n/v. he is passing flatus and loose stools Consider fulls later today Will discuss with surgeon the possibility of starting blood thinners if indicated for patients afib Encouraged OOB and pulmonary toilet Admission and Anticipated Discharge Date Admission Date: June 06, 2023 Supervising Physician Co-Signing Physician Notes I have seen and examined this patient this am. Patient says he is leaking urine around his Orozco which is not draining. Please flush Orozco. May advance to full liquids for next meal. Subjective Patient reports feeling okay. Tolerating clears without nausea/vomiting. He is passing flatus along with some loose stools. Abdominal pain controlled. He denies chest pain, but does feel some pressure/SOB with deep breaths. Physical Exam Physical Exam: awake/alert, no distress Cardiovascular: afib Gastrointestinal (Abdomen): Inspection/Auscultation: + abdomen distended (mild) and + abdominal surgical drain present (IRA 35cc documented last 12hrs/115cc last 24 hrs; darker serosang) Percussion/Palpation: + abdomen tender (expected elise incisional discomfort ) and abdomen soft Results & Data Vital Signs (Past 12 Hours) Vital Signs Temp Pulse Pulse Resp BP BP Pulse Ox 06/10/23 07:29 36.6 C 121 H 16 134/99 95 06/10/23 06:00 113 H 18 06/10/23 06:00 130/89 06/10/23 04:01 106 H 24 06/10/23 04:01 148/110 H 06/10/23 04:00 117 H 18 06/10/23 02:00 97 H 23 06/10/23 02:00 114/73 06/10/23 00:00 108 H 20 06/10/23 00:00 108/80 06/09/23 22:01 135 H 24 06/09/23 22:01 130/110 H 06/09/23 22:00 113 H 17 06/10/23 04:00 36.9 C 06/09/23 23:24 36.9 C 96 H 16 130/98 93 06/09/23 23:24 117 H O2 Del Method 06/10/23 07:29 Room Air 06/10/23 06:00 06/10/23 06:00 06/10/23 04:01 06/10/23 04:01 06/10/23 04:00 06/10/23 02:00 06/10/23 02:00 06/10/23 00:00 06/10/23 00:00 06/09/23 22:01 06/09/23 22:01 06/09/23 22:00 06/10/23 04:00 06/09/23 23:24 Room Air 06/09/23 23:24 PG Care Time/CCT Total # of Minutes Spent Total Time Spent with Patient: Total time spent is greater than 50% in coordination of care (as documented) at patient's floor/unit and/or counseling patient: Coding Level of Care Code 92344 Post Operative Follow-Up Diagnoses Perforation of sigmoid colon due to diverticulitis K57.20
[2023-06-10] MEDS: METOPROLOL TARTRATE 25 MG TAB PO SCH (08:54)
[2023-06-10] MEDS: FINASTERIDE 5 MG TAB PO SCH (08:54)
--- NOTE | 2023-06-10 11:42 | Hospitalist Progress Note ---
Date of Service June 10, 2023 Assessment & Plan (1) Sepsis: (2) Perforated diverticulum: (3) Diverticulitis: (4) Tachycardia: Plan: 67 year old man with paroxysmal afib, HTN, HLD, iron deficiency anemia, diverticulosis, BPH who underwent recent open right inguinal hernia repair with mesh on April 15, 2023 who presents with worsening abd pain CT of the abdomen noted findings consistent with perforated acute sigmoid diverticulitis. Associated large pocket of gas and fluid within the mesentery which extends for 9.4 cm consistent with a contained perforation. This contains only a small amount of fluid at this time. No rim enhancement. Left nephrolithiasis and multiple bladder calculi. No ureteral calculi. No hydronephrosis. Several renal cysts. He was tachycardic with leukocytosis of 12.8 on presentation Normal lactate of 1.7 Was taken to OR on 06/06/23 Difficulty with sanchez placement in OR necessitated intraop Uro consult who did cystoscopy and sanchez placement Per Op note, patient had diagnostic laparoscopy with abdominal washout and drain placement POD 4 Leukocytosis resolved Currently on IV zosyn Tolerating clears Discussed with surgical team. Will monitor IRA drain output/[employer] Diet advanced to full liquid per surg (5) Hypertension: Plan: BP is stable Continue to hold lisinopril for now Monitor (6) Paroxysmal A-fib: Plan: pAfib with RVR Currently on cardizem drip Card eval noted Lopressor increased to 75mg TID Wean diltiazem drip as appropriate. Discussed with Surgery team. Will start hep gtt for now incase further procedure/OR is needed (7) Bladder calculi: (8) Benign localized prostatic hyperplasia with lower urinary tract symptoms (LUTS): Plan: Urology recs noted s/p cystoscopy in OR and found to have a bladder neck contracture with embedded bladder stone Will continue sanchez for now in case of procedure Continue home finasteride (9) Hypophosphatemia: (10) Hypomagnesemia: Plan: Phosph is 2.5 today Mag is 1.7 today Replete Mag and K to keep Mag>2 and K>4 (11) Anemia, iron deficiency: Plan: Hb was 14.8 on admission Hb was 9.2 post op likely dilutional Hb is stable. 13.2 today Continue to monitor DVT ppx: Hep gtt CODE: FULL I spent a total of 50 minutes coordinating, documenting and providing care for this patient excluding time spent in performance of separately billed services Admission and Anticipated Discharge Date Admission Date: June 06, 2023 Subjective Patient seen and examined Reports low abd pain is well controlled Reported he felt some pressure and urine from around sanchez when he was sitting on the toilet. Denied any leakage when he is standing or laying in bed Denied any dizziness, headache, fever, chills, nausea, vomiting, cough, SOB, chest pain Tolerating clears well. Passing flatus. Had some loose stool this AM Physical Exam Constitutional: + well hydrated; no acute distress Eyes: PERRL, conjunctivae normal, anicteric sclerae ENMT: external ear and nose normal, oropharynx normal Respiratory: normal respiratory effort, lungs clear to auscultation Cardiovascular: Rate/Rhythm: + tachycardic and + irregularly irregular S1 S2 Gastrointestinal (Abdomen): Soft, mildly distended, mild tenderness around incision site, Drain in situ with darker drainage Musculoskeletal: no cyanosis or clubbing, extremities motor strength 5/5 Neurologic: PERRL, EOMI, accommodation nl, no face palsy, no dysarthria Psychiatric: A+Ox3, euthymic affect Results & Data Results & Data Vital Signs (Past 12 Hours) Vital Signs Temp Pulse Pulse Resp BP BP Pulse Ox 06/10/23 11:35 37.0 C 109 H 16 139/97 96 06/10/23 08:00 112 H 06/10/23 07:29 36.6 C 121 H 16 134/99 95 06/10/23 06:00 113 H 18 06/10/23 06:00 130/89 06/10/23 04:01 106 H 24 06/10/23 04:01 148/110 H 06/10/23 04:00 117 H 18 06/10/23 02:00 97 H 23 06/10/23 02:00 114/73 06/10/23 00:00 108 H 20 06/10/23 00:00 108/80 06/10/23 04:00 36.9 C O2 Del Method 06/10/23 11:35 Room Air 06/10/23 08:00 06/10/23 07:29 Room Air 06/10/23 06:00 06/10/23 06:00 06/10/23 04:01 06/10/23 04:01 06/10/23 04:00 06/10/23 02:00 06/10/23 02:00 06/10/23 00:00 06/10/23 00:00 06/10/23 04:00 Laboratory Results Abnormal lab results 06/10/23 06/10/23 Range/Units 04:29 04:29 RBC 4.36 L (4.70-6.10) M/uL Hgb 13.2 L (14.0-18.0) g/dl Hct 40.1 L (42.0-52.0) % RDW Std Deviation 49.1 H (36.4-46.3) fL Calcium 8.1 L (8.6-10.3) mg/dl (11) Anemia, iron deficiency Iron deficiency anemia type: unspecified iron deficiency Qualified Code(s): D50.9 - Iron deficiency anemia, unspecified
[2023-06-10] MEDS: POTASSIUM CHLORIDE CRTAB 20 MEQ TABCR PO SCH ×4 (11:50→22:24)
[2023-06-10] MEDS ORDERED: Heparin IV Adult Wt-Based Low-Dose *NO* Bolus Protocol IV SCH (12:45)
[2023-06-10] MEDS ORDERED: METOPROLOL TARTRATE 1 MG/ML VIAL IV STA (12:49)
[2023-06-10 13:39] LABS: INR 1.1 (0.9-1.1); Partial Thromboplastin Time 27.4 Seconds (21.0-31.0); Prothrombin Time 12.4 Seconds (9.0-12.0)
[2023-06-10] MEDS ORDERED: Heparin IV Adult Wt-Based Low-Dose *NO* Bolus Protocol IV STA (13:40)
[2023-06-10] MEDS ORDERED: HEPARIN 25000 UNIT/500 ML D5W IV ONE (13:47)
[2023-06-10] MEDS: METOPROLOL TARTRATE 100 MG TAB PO SCH ×2 (13:57→22:09)
[2023-06-10] MEDS: MAGNESIUM SULFATE / D5W 1 GM/100 ML BAG IV SCH ×3 (13:58→18:28)
[2023-06-10] MEDS: HEPARIN SODIUM/DEXTROSE 25,000 UNITS/500 ML BAG IV SCH (13:58)
[2023-06-10] MEDS ORDERED: METOPROLOL TARTRATE 25 MG TAB PO SCH (14:00)
[2023-06-10 21:03] LABS: Calcium 8.5 mg/dl (8.6-10.3); Potassium 3.5 mmol/L (3.5-5.1)
[2023-06-10 21:05] LABS: Partial Thromboplastin Ratio 1.4; Partial Thromboplastin Time 39.9 Seconds (21.0-31.0)
[2023-06-10 21:09] LABS: BUN Creatinine Ratio 9.6 (10-20); Creatinine Clr Calc Pharmacy 124.2 ml/min; Est GFR (African American) 112.8 ml/min; Est GFR (Non-African American) 97.3 ml/min
[2023-06-11] MEDS: dilTIAZem HCL 125 MG in DEXTROSE 5% 100 ML IV SCH (03:47)
[2023-06-11 04:49] LABS: Hematocrit (blood only) 40.3 % (42.0-52.0); Hemoglobin 13.5 g/dl (14.0-18.0); Mean Corpuscular Hemoglobin 30.6 pg (25.0-34.0); Mean Corpuscular Hgb Conc 33.5 g/dL (32.0-36.0); Mean Corpuscular Volume 91.4 fL (80.0-100.0); Platelet Count 225 K/uL (130-400); RDW Coefficient of Variation 14.4 % (11.5-14.5); RDW Standard Deviation 48.7 fL (36.4-46.3); Red Blood Count 4.41 M/uL (4.70-6.10); White Blood Count 6.61 K/ul (4.8-10.8)
[2023-06-11 04:50] LABS: BUN Creatinine Ratio 8.2 (10-20); Calcium 8.3 mg/dl (8.6-10.3); Creatinine Clr Calc Pharmacy 124.2 ml/min; Est GFR (African American) 112.8 ml/min; Est GFR (Non-African American) 97.3 ml/min; Phosphorus 2.1 mg/dl (2.5-4.9)
[2023-06-11 05:16] LABS: Partial Thromboplastin Ratio 1.7
[2023-06-11 05:54] LABS: Partial Thromboplastin Time 48.8 Seconds (21.0-31.0)
[2023-06-11] MEDS: PIPERACILLIN/TAZOBACTAM 4.5 GM in DEXTROSE 5% 100 ML IV SCH ×3 (06:20→21:16)
[2023-06-11] MEDS ORDERED: FUROSEMIDE 40 MG/4 ML VIAL IV ONE (07:34)
[2023-06-11] MEDS: POTASSIUM CHLORIDE CRTAB 20 MEQ TABCR PO SCH ×3 (07:45→19:30)
[2023-06-11] MEDS: METOPROLOL TARTRATE 100 MG TAB PO SCH ×4 (07:46→19:54)
[2023-06-11] MEDS: FINASTERIDE 5 MG TAB PO SCH (07:46)
--- NOTE | 2023-06-11 08:46 | Surgery Progress Note ---
I have seen and examined this patient with the surgical PA. I agree with the the plan. Date of Service June 11, 2023 Assessment & Plan (1) Perforation of sigmoid colon due to diverticulitis: Plan: Patient reports he is feeling well Denies nausea, vomiting, chest pain, SOB Reports intermittent lower abdominal spasms that last seconds Last BM this AM, Passing flatus, Feels his abdomen is mildly bloated, no real concerns with belching, will advance diet to low fiber. JR drain patent draining raj serious fluid with white sediment, covered with drain sponge and medipore tape, other post operative port sites covered with dermabond, ecchymosis noted around, however no s/s of infection. Drainage over 12 hours 15cc, over 24 hours 35cc. Will keep jr drain and reassess tomorrow for possible removal WBC 6.6, Patient remains in A-fib with elevated HR, hospitalists are managing. Admission and Anticipated Discharge Date Admission Date: June 06, 2023 Subjective Patient reports he is feeling well Denies nausea, vomiting, chest pain, SOB Reports intermittent lower abdominal spasms that last seconds Last BM this AM, Passing flatus, Feels his abdomen is mildly bloated, no real concerns with belching Review of Systems Constitutional: no fever and no chills Respiratory: no dyspnea Cardiovascular: no chest pain Gastrointestinal: + bloating; no abdominal pain, no nausea and no vomiting Physical Exam Physical Exam: alert, awake Constitutional: cooperative and comfortable Respiratory: normal respiratory effort and able to speak in complete sentences; no respiratory distress and does not use accessory muscles Cardiovascular: Rate/Rhythm: + tachycardic Gastrointestinal (Abdomen): Inspection/Auscultation: + abdomen distended (mildly) Percussion/Palpation: abdomen soft; abdomen nontender and no guarding Results & Data Vital Signs (Past 12 Hours) Vital Signs Temp Pulse Pulse Resp BP BP Pulse Ox 06/11/23 08:08 141 H 22 06/11/23 07:26 127/93 06/11/23 07:26 120 H 16 95 06/11/23 07:24 115 H 17 95 06/11/23 07:24 123/106 H 06/11/23 07:00 92 H 21 06/11/23 06:00 87 24 06/11/23 05:00 102 H 22 06/11/23 04:09 113 H 20 94 06/11/23 04:09 125/97 06/11/23 04:00 98 H 22 06/11/23 03:00 92 H 29 H 06/11/23 02:00 108 H 25 H 06/11/23 01:00 98 H 23 06/11/23 00:00 94 H 22 06/10/23 23:00 112 H 21 06/10/23 22:22 144/95 H 06/10/23 22:22 109 H 17 95 06/10/23 22:00 99 H 17 06/10/23 21:00 100 H 21 06/11/23 08:00 98.1 F 06/11/23 00:00 94 H 06/11/23 04:00 98.2 F 94 H 17 125/92 94 06/10/23 22:26 98.4 F 120 H 16 144/95 H 96 O2 Del Method 06/11/23 08:08 06/11/23 07:26 06/11/23 07:26 06/11/23 07:24 06/11/23 07:24 06/11/23 07:00 06/11/23 06:00 06/11/23 05:00 06/11/23 04:09 06/11/23 04:09 06/11/23 04:00 06/11/23 03:00 06/11/23 02:00 06/11/23 01:00 06/11/23 00:00 06/10/23 23:00 06/10/23 22:22 06/10/23 22:22 06/10/23 22:00 06/10/23 21:00 06/11/23 08:00 06/11/23 00:00 06/11/23 04:00 Room Air 06/10/23 22:26 Room Air PG Care Time/CCT Total # of Minutes Spent Total Time Spent with Patient: Total time spent is greater than 50% in coordination of care (as documented) at patient's floor/unit and/or counseling patient: Coding Level of Care Code 88910 Post Operative Follow-Up Diagnoses Perforation of sigmoid colon due to diverticulitis K57.20
--- NOTE | 2023-06-11 10:47 | Urology Progress Note ---
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 Continue to monitor. Orozco currently intact and draining with good output. Urine is clear yellow. Okay for void trial from our standpoint - patient prefers to wait until tomorrow. Recommend follow-up with his established urologist for ongoing management after discharge will follow peripherally, please contact our service with any additional questions Admission and Anticipated Discharge Date Admission Date: June 06, 2023 Subjective Patient examined at bedside in the ICU. Awake, resting in bed on arrival. No acute distress. Overall reports he is feeling well. Orozco intact, draining clear yellow urine. He did have some leakage around the catheter yesterday, likely from spasms. No issues with the catheter so far today. Review of Systems Constitutional: as per Subjective / HPI Genitourinary: + as per Subjective / HPI Physical Exam Constitutional: no acute distress Respiratory: no respiratory distress and no labored breathing Skin: No visible rashes or lesions to exposed skin areas Neurologic: awake Psychiatric: A+Ox3, euthymic affect Genitourinary: Orozco catheter intact, draining clear yellow urine Results & Data Vital Signs (Past 12 Hours) Vital Signs Temp Pulse Pulse Resp BP BP Pulse Ox 06/11/23 08:08 141 H 22 06/11/23 07:26 127/93 06/11/23 07:26 120 H 16 95 06/11/23 07:24 115 H 17 95 06/11/23 07:24 123/106 H 06/11/23 07:00 92 H 21 06/11/23 06:00 87 24 06/11/23 05:00 102 H 22 06/11/23 04:09 113 H 20 94 06/11/23 04:09 125/97 06/11/23 04:00 98 H 22 06/11/23 03:00 92 H 29 H 06/11/23 02:00 108 H 25 H 08/08/23 01:00 98 H 23 06/11/23 00:00 94 H 22 06/10/23 23:00 112 H 21 06/10/23 22:22 144/95 H 06/10/23 22:22 109 H 17 95 06/11/23 08:00 36.7 C 06/11/23 00:00 94 H 06/11/23 04:00 36.8 C 94 H 17 125/92 94 06/10/23 22:26 36.9 C 120 H 16 144/95 H 96 O2 Del Method 06/11/23 08:08 06/11/23 07:26 06/11/23 07:26 06/11/23 07:24 06/11/23 07:24 06/11/23 07:00 06/11/23 06:00 06/11/23 05:00 06/11/23 04:09 06/11/23 04:09 06/11/23 04:00 06/11/23 03:00 06/11/23 02:00 06/11/23 01:00 06/11/23 00:00 06/10/23 23:00 06/10/23 22:22 06/10/23 22:22 06/11/23 08:00 06/11/23 00:00 06/11/23 04:00 Room Air 06/10/23 22:26 Room Air PG Care Time/CCT Total # of Minutes Spent Total Time Spent with Patient: Total time spent is greater than 50% in coordination of care (as documented) at patient's floor/unit and/or counseling patient: Coding Level of Care Code 33369 SUB INP/OBS CARE 2/35MIN Diagnoses Benign localized prostatic hyperplasia with lower urinary tract symptoms (LUTS) N40.1 Bladder calculi N21.0
--- NOTE | 2023-06-11 13:00 | Cardiology Progress Note ---
Date of Service June 11, 2023 Assessment & Plan (1) Paroxysmal A-fib: Plan 67 yo man Presenting with perforated sigmoid diverticula Recent hernia repair +Post operative atrial fibrillation Hx of afib in the past - PAF Overnight: HR 100-120 BPM JVP elevated Plans: * Patient appears close to euvolemia * Lasix (DISCONTINUE) * K+ goal 4.5-5 * Kdur 40 meq po BID on 06/11/2023 * Mag goal >2 * 2 gm of Magnesium Sulfate on 06/11/2023 * BID electrolyte check * AFIB with RVR persists * Increase standing Lopressor to 100 mg po QID (max dose) * Will add digoxin next * Suspect that afib will become easier to control as abdominal issues resolve * Lisinopril - home med - OFF * As HR is better controlled with Lopressor, would wean/discontinue Diltiazem infusion * TSH - WNL - 2.5 * CHADsVasc 2 - on heparin. Franklyn Pacheco Admission and Anticipated Discharge Date Admission Date: June 06, 2023 Subjective Events overnight: * HR/Ventricular Response improving gradually * Advancing diet Subjective: * Abdominal bloating * + Passing gas Review of Systems Review of Systems: All systems reviewed & are unremarkable except as noted in HPI & below Physical Exam Physical Exam: Overweight man in NAD Glasses JVP 12 cm H20 S1S2 2/6 systolic murmur CTA B on Anterior Exam Abdomen - distended + BS, + tympany No LE edema/swelling Warm and perfusing Neurologically - no deficits noted Results & Data Vital Signs (Past 12 Hours) Vital Signs Temp Pulse Pulse Resp BP BP Pulse Ox 06/11/23 08:08 141 H 22 06/11/23 07:26 127/93 06/11/23 07:26 120 H 16 95 06/11/23 07:24 115 H 17 95 06/11/23 07:24 123/106 H 06/11/23 07:00 92 H 21 06/11/23 06:00 87 24 06/11/23 05:00 102 H 22 06/11/23 04:09 113 H 20 94 06/11/23 04:09 125/97 06/11/23 04:00 98 H 22 06/11/23 03:00 92 H 29 H 06/11/23 02:00 108 H 25 H 06/11/23 01:00 98 H 23 06/11/23 08:00 36.7 C 06/11/23 04:00 36.8 C 94 H 17 125/92 94 O2 Del Method 06/11/23 08:08 06/11/23 07:26 06/11/23 07:26 06/11/23 07:24 06/11/23 07:24 06/11/23 07:00 06/11/23 06:00 06/11/23 05:00 06/11/23 04:09 06/11/23 04:09 06/11/23 04:00 06/11/23 03:00 06/11/23 02:00 06/11/23 01:00 06/11/23 08:00 06/11/23 04:00 Room Air Laboratory Results Coagulation 06/10/23 06/10/23 06/11/23 Range/Units 12:54 20:26 04:07 PT 12.4 H (9.0-12.0) Seconds APTT 27.4 39.9 H 48.8 H* (21.0-31.0) Seconds CBC 06/11/23 Range/Units 04:07 WBC 6.61 (4.8-10.8) K/ul RBC 4.41 L (4.70-6.10) M/uL Hgb 13.5 L (14.0-18.0) g/dl Hct 40.3 L (42.0-52.0) % Plt Count 225 (130-400) K/uL Comprehensive Metabolic Panel 06/10/23 06/11/23 Range/Units 20:21 04:07 Sodium 137 140 (136-145) mmol/L Potassium 3.5 4.0 (3.5-5.1) mmol/L Chloride 103 107 (98-107) mmol/L Carbon Dioxide 27 27 (21-32) mmol/L BUN 7 6 (6-23) mg/dl Creatinine 0.73 0.73 (0.6-1.4) mg/dl Glucose 129 H 119 H (70-99(Fasting)) mg/dl Calcium 8.5 L 8.3 L (8.6-10.3) mg/dl Intake and Output 06/10/23 06/11/23 06/11/23 22:59 06:59 14:59 Intake Total 761.167 / 1359.233 478.066 / 1359.233 120 / 120 Output Total 1841 / 3156 1315 / 3156 Balance -1079.833 / -1796.767 -836.934 / -1796.767 120 / 120 Intake: IV 611.167 / 1109.233 378.066 / 1109.233 120 / 120 Heparin Sodium/Dextrose 25,000 157.667 / 356.400 198.733 / 356.400 units In 500 ml @ 1,100 UNITS/ HR 22 mls/hr IV .[id number] [facility] Rx #:[id number] Magnesium Sulfate / D5w 1 gm In 275.833 / 275.833 100 ml @ 50 mls/hr IV Q2H [facility] Rx#:[id number] Piperacillin/Tazobactam 4.5 gm 120 / 360 120 / 360 120 / 120 In Dextrose 5% 100 ml @ 30 mls/ hr IV Q8H [facility] Rx#:[id number] dilTIAZem HCL 125 mg In 57.667 / 117.000 59.333 / 117.000 Dextrose 5% 100 ml @ 5 MG/HR 5 mls/hr IV .Q24H [facility] Rx#: [id number] Oral 150 / 250 100 / 250 Output: Estimated Blood Loss 20 Urine Amount (Catheter) 1800 / 3100 1300 / 3100 Orozco/Indwelling 1800 / 3100 1300 / 3100 Drain Output 15 / 35 Left Abdomen IRA # Bowel Movements Other: Weight 101.2 kg 101.4 kg Weight Measurement Method Built in [facility] Medications Administered Current Inpatient Medications Finasteride (Finasteride 5 Mg Tab) 5 mg PO QAM [facility] Stop: 07/07/23 09:29 Last Admin: 06/11/23 07:46 Dose: 5 mg Piperacillin Sod/Tazobactam (Sod 4.5 gm/ Dextrose) 120 mls @ 30 mls/hr IV Q8H [facility]; Protocol Stop: 06/16/23 13:59 Last Infusion: 06/11/23 10:47 Dose: Infused Diltiazem HCl 125 mg/ Dextrose 125 mls @ 5 mls/hr IV .Q24H [facility]; Protocol Stop: 07/09/23 06:14 Last Titration: 06/11/23 06:53 Dose: 5 mg/hr, 5 mls/hr Heparin Sodium/Dextrose (Heparin Sodium/Dextrose) 25,000 units in 500 mls @ 22 mls/hr IV .[id number] [facility]; Protocol Stop: 07/10/23 12:59 Last Titration: 06/11/23 06:53 Dose: 1,100 units/hr, 22 mls/hr Morphine Sulfate (Morphine Sulfate 2 Mg/Ml Carp) 2 mg IV Q2H PRN PRN Reason: Moderate Pain (Scale 4, 5, 6) Stop: 06/20/23 16:58 Last Admin: 06/09/23 18:35 Dose: 2 mg Morphine Sulfate (Morphine Sulfate 4 Mg/Ml 1 Ml Carp\Vial) 4 mg IV Q2H PRN PRN Reason: Severe Pain (Scale 7, 8, 9,10) Stop: 06/20/23 16:58 Ondansetron HCl (Ondansetron Inj 2 Mg/Ml 2 Ml Vial) 4 mg IV Q4H PRN PRN Reason: Nausea And Vomiting Stop: 07/06/23 10:43 Potassium Chloride (Potassium Chloride Crtab 20 Meq Tabcr) 40 meq PO BID [facility] Stop: 07/10/23 12:59 Last Admin: 06/11/23 10:46 Dose: Not Given
[2023-06-11] MEDS: MAGNESIUM SULFATE / D5W 1 GM/100 ML BAG IV SCH ×2 (13:13→15:06)
--- NOTE | 2023-06-11 13:44 | Hospitalist Progress Note ---
Date of Service June 11, 2023 Assessment & Plan (1) Sepsis: (2) Perforated diverticulum: (3) Diverticulitis: (4) Tachycardia: Plan: 67 year old man with paroxysmal afib, HTN, HLD, iron deficiency anemia, diverticulosis, BPH who underwent recent open right inguinal hernia repair with mesh on April 15, 2023 who presents with worsening abd pain CT of the abdomen noted findings consistent with perforated acute sigmoid diverticulitis. Associated large pocket of gas and fluid within the mesentery which extends for 9.4 cm consistent with a contained perforation. This contains only a small amount of fluid at this time. No rim enhancement. Left nephrolithiasis and multiple bladder calculi. No ureteral calculi. No hydronephrosis. Several renal cysts. He was tachycardic with leukocytosis of 12.8 on presentation Normal lactate of 1.7 Was taken to OR on 06/06/23 Difficulty with sanchez placement in OR necessitated intraop Uro consult who did cystoscopy and sanchez placement Per Op note, patient had diagnostic laparoscopy with abdominal washout and drain placement POD 5 Leukocytosis resolved Currently on IV zosyn Tolerating full liquid Diet has been advanced to low fiber diet by Surgery Follow up surgery recs (5) Hypertension: Plan: BP is stable Continue to hold lisinopril for now Monitor (6) Paroxysmal A-fib: Plan: pAfib with RVR Currently on cardizem drip Lopressor has been increased to 100mg QID today Wean diltiazem drip as appropriate. Cardiology eval noted Continue hep gtt for now. Plan to change to a po anticoagulation prior to dc (7) Bladder calculi: (8) Benign localized prostatic hyperplasia with lower urinary tract symptoms (LUTS): Plan: Urology recs noted s/p cystoscopy in OR and found to have a bladder neck contracture with embedded bladder stone Will continue sanchez for now Do voiding trial tomorrow Continue home finasteride (9) Hypophosphatemia: (10) Hypomagnesemia: Plan: Phosph is 2.1 today. Replete Mag is 2 today Monitor electrolytes to keep Mag>2 and K>4 (11) Anemia, iron deficiency: Plan: Hb was 14.8 on admission Hb was 9.2 post op likely dilutional Hb is stable. 13.5 today Continue to monitor DVT ppx: Hep gtt CODE: FULL I spent a total of 50 minutes coordinating, documenting and providing care for this patient excluding time spent in performance of separately billed services Admission and Anticipated Discharge Date Admission Date: June 06, 2023 Subjective Patient seen and examined Reports no abd pain. Just fullness after lunch Denied nausea, vomiting Still has loose stool Denied fever, chills, chest pain, cough, SOB Denied palpitations, dizziness Reported some headache Physical Exam Constitutional: + well hydrated; no acute distress Eyes: PERRL, conjunctivae normal, anicteric sclerae ENMT: external ear and nose normal, oropharynx normal Respiratory: normal respiratory effort, lungs clear to auscultation Cardiovascular: Rate/Rhythm: + tachycardic and + irregularly irregular S1 S2 Gastrointestinal (Abdomen): Soft, distended, non tender, +BS, drain in situ Musculoskeletal: no cyanosis or clubbing, extremities motor strength 5/5 Neurologic: PERRL, EOMI, accommodation nl, no face palsy, no dysarthria Psychiatric: A+Ox3, euthymic affect Genitourinary: Sanchez in situ Results & Data Results & Data Vital Signs (Past 12 Hours) Vital Signs Temp Pulse Pulse Resp BP BP Pulse Ox 06/11/23 12:16 124/83 06/11/23 12:16 98 H 23 96 06/11/23 12:00 116 H 23 06/11/23 10:00 82 19 06/11/23 12:00 36.5 C 06/11/23 08:08 141 H 22 06/11/23 07:26 127/93 06/11/23 07:26 120 H 16 95 06/11/23 07:24 115 H 17 95 06/11/23 07:24 123/106 H 06/11/23 07:00 92 H 21 06/11/23 06:00 87 24 06/11/23 05:00 102 H 22 06/11/23 04:09 113 H 20 94 06/11/23 04:09 125/97 06/11/23 04:00 98 H 22 06/11/23 03:00 92 H 29 H 06/11/23 02:00 108 H 25 H 06/11/23 08:00 36.7 C 06/11/23 04:00 36.8 C 94 H 17 125/92 94 O2 Del Method 06/11/23 12:16 06/11/23 12:16 Room Air 06/11/23 12:00 06/11/23 10:00 06/11/23 12:00 06/11/23 08:08 06/11/23 07:26 06/11/23 07:26 06/11/23 07:24 06/11/23 07:24 06/11/23 07:00 06/11/23 06:00 06/11/23 05:00 06/11/23 04:09 06/11/23 04:09 06/11/23 04:00 06/11/23 03:00 06/11/23 02:00 06/11/23 08:00 06/11/23 04:00 Room Air Laboratory Results Abnormal lab results 06/10/23 06/10/23 06/11/23 Range/Units 20:21 20:26 04:07 RBC 4.41 L (4.70-6.10) M/uL Hgb 13.5 L (14.0-18.0) g/dl Hct 40.3 L (42.0-52.0) % RDW Std Deviation 48.7 H (36.4-46.3) fL APTT 39.9 H (21.0-31.0) Seconds BUN/Creatinine Ratio 9.6 L (10-20) Glucose 129 H (70-99(Fasting)) mg/dl Calcium 8.5 L (8.6-10.3) mg/dl Phosphorus (2.5-4.9) mg/dl 06/11/23 06/11/23 Range/Units 04:07 04:07 RBC (4.70-6.10) M/uL Hgb (14.0-18.0) g/dl Hct (42.0-52.0) % RDW Std Deviation (36.4-46.3) fL APTT 48.8 H* (21.0-31.0) Seconds BUN/Creatinine Ratio 8.2 L (10-20) Glucose 119 H (70-99(Fasting)) mg/dl Calcium 8.3 L (8.6-10.3) mg/dl Phosphorus 2.1 L (2.5-4.9) mg/dl (11) Anemia, iron deficiency Iron deficiency anemia type: unspecified iron deficiency Qualified Code(s): D50.9 - Iron deficiency anemia, unspecified
[2023-06-11] MEDS ORDERED: POT PHOSPHATE MONOBASIC W/ SOD TAB PO ONE (13:49)
[2023-06-11] MEDS ORDERED: POTASSIUM CHLORIDE CRTAB 20 MEQ TABCR PO SCH (14:00)
[2023-06-11] MEDS: ACETAMINOPHEN 325 MG TAB PO PRN (15:06)
[2023-06-11 16:22] LABS: BUN Creatinine Ratio 11.6 (10-20); Calcium 8.7 mg/dl (8.6-10.3); Creatinine Clr Calc Pharmacy 105.5 ml/min; Est GFR (African American) 105.5 ml/min; Potassium 3.8 mmol/L (3.5-5.1)
[2023-06-11] MEDS ORDERED: POTASSIUM CHLORIDE CRTAB 20 MEQ TABCR PO STA (18:29)
[2023-06-11 18:44] LABS: BUN Creatinine Ratio 12.2 (10-20); Calcium 8.6 mg/dl (8.6-10.3); Creatinine Clr Calc Pharmacy 92.6 ml/min; Est GFR (African American) 93.4 ml/min; Est GFR (Non-African American) 80.6 ml/min; Magnesium 2.2 mg/dl (1.7-2.4); Potassium 3.9 mmol/L (3.5-5.1)
[2023-06-11] MEDS: HEPARIN SODIUM/DEXTROSE 25,000 UNITS/500 ML BAG IV SCH (18:56)
[2023-06-12] MEDS: PIPERACILLIN/TAZOBACTAM 4.5 GM in DEXTROSE 5% 100 ML IV SCH ×3 (05:50→22:16)
[2023-06-12] MEDS: dilTIAZem HCL 125 MG in DEXTROSE 5% 100 ML IV SCH (05:53)
[2023-06-12 06:34] LABS: Hematocrit (blood only) 38.4 % (42.0-52.0); Mean Corpuscular Hemoglobin 30.4 pg (25.0-34.0); Mean Corpuscular Hgb Conc 33.9 g/dL (32.0-36.0); Mean Corpuscular Volume 89.9 fL (80.0-100.0); Mean Platelet Volume 9.8 fL (9.4-12.4); Platelet Count 258 K/uL (130-400); RDW Coefficient of Variation 14.2 % (11.5-14.5); RDW Standard Deviation 46.5 fL (36.4-46.3); Red Blood Count 4.27 M/uL (4.70-6.10); White Blood Count 8.11 K/ul (4.8-10.8)
[2023-06-12 06:50] LABS: BUN Creatinine Ratio 14.5 (10-20); Calcium 8.5 mg/dl (8.6-10.3); Creatinine Clr Calc Pharmacy 130.7 ml/min; Est GFR (African American) 115.5 ml/min; Est GFR (Non-African American) 99.6 ml/min; Magnesium 1.8 mg/dl (1.7-2.4); Phosphorus 2.6 mg/dl (2.5-4.9); Potassium 3.7 mmol/L (3.5-5.1)
[2023-06-12 07:12] LABS: Partial Thromboplastin Ratio 1.9
[2023-06-12 07:17] LABS: Partial Thromboplastin Time 54.7 Seconds (21.0-31.0)
[2023-06-12] MEDS: METOPROLOL TARTRATE 100 MG TAB PO SCH ×4 (07:44→21:05)
[2023-06-12] MEDS: FINASTERIDE 5 MG TAB PO SCH (07:44)
[2023-06-12] MEDS: POTASSIUM CHLORIDE CRTAB 20 MEQ TABCR PO SCH ×3 (07:44→21:05)
--- NOTE | 2023-06-12 07:49 | Cardiology Progress Note ---
Date of Service June 12, 2023 Assessment & Plan (1) Paroxysmal A-fib: Plan 67 yo man Presenting with perforated sigmoid diverticula Recent hernia repair +Post operative atrial fibrillation Hx of afib in the past - PAF Overnight: * HR 90-100's * Abdominal Drain - removed JVP elevated on exam to 14 cmH20 Plans: * Mild volume overload * Lasix 40 mg IV x 1 * K+ goal 4.5-5 * Kdur 40 meq po TID on 06/12/2023 * Mag goal >2 * Magnesium repletion * BID electrolyte check * AFIB with RVR persists but improving * Continue Lopressor to 100 mg po QID (max dose) * Digoxin load 0.250 mg IV x 1; repeat in 6 hrs * Consider Digoxin 0.125 mg po per day for maintenance * D/C Diltiazem infusion * Lisinopril - home med - OFF * TSH - WNL - 2.5 * CHADsVasc 2 - on heparin. * Mobilize Franklyn Pacheco Admission and Anticipated Discharge Date Admission Date: June 06, 2023 Supervising Physician Co-Signing Physician Notes Pt seen and evaluated with [facility] staff. Concur with observations and plans. 50min spent addressing challenges, educating and advancing daily plan of care. Franklyn Pacheco Subjective Events Overnight * Ventricular rate has started to decrease Review of Systems Review of Systems: All systems reviewed & are unremarkable except as noted in HPI & below Physical Exam Physical Exam: Overweight man in NAD Glasses JVP 12 cm H20 S1S2 2/6 systolic murmur CTA B on Anterior Exam Abdomen - distended + BS, + tympany No LE edema/swelling Warm and perfusing Neurologically - no deficits noted No major changes overnight Results & Data Vital Signs (Past 12 Hours) Vital Signs Temp Pulse Pulse Resp BP BP Pulse Ox 06/12/23 07:22 135/87 06/12/23 07:22 108 H 27 H 97 06/12/23 07:20 97 H 17 06/12/23 07:15 101 H 18 06/12/23 07:25 37.2 C 06/12/23 03:56 37.1 C 101 H 15 125/89 96 06/12/23 00:00 115 H 06/11/23 23:01 37.2 C 112 H 17 115/98 95 06/11/23 20:00 37.2 C 114 H 20 125/84 96 O2 Del Method 08/09/23 07:22 06/12/23 07:22 Room Air 06/12/23 07:20 06/12/23 07:15 06/12/23 07:25 06/12/23 03:56 Room Air 06/12/23 00:00 06/11/23 23:01 Room Air 06/11/23 20:00 Room Air Laboratory Results Coagulation 06/12/23 Range/Units 05:34 APTT 54.7 H* (21.0-31.0) Seconds CBC 06/12/23 Range/Units 05:34 WBC 8.11 (4.8-10.8) K/ul RBC 4.27 L (4.70-6.10) M/uL Hgb 13.0 L (14.0-18.0) g/dl Hct 38.4 L (42.0-52.0) % Plt Count 258 (130-400) K/uL Comprehensive Metabolic Panel 06/11/23 06/11/23 06/12/23 Range/Units 15:08 18:09 05:34 Sodium 137 137 138 (136-145) mmol/L Potassium 3.8 3.9 3.7 (3.5-5.1) mmol/L Chloride 104 106 107 (98-107) mmol/L Carbon Dioxide 26 24 24 (21-32) mmol/L BUN 10 12 10 (6-23) mg/dl Creatinine 0.86 0.98 0.69 (0.6-1.4) mg/dl Glucose 121 H 183 H 107 H (70-99(Fasting)) mg/dl Calcium 8.7 8.6 8.5 L (8.6-10.3) mg/dl Intake and Output 06/11/23 06/12/23 06/12/23 22:59 06:59 14:59 Intake Total 517.934 / 1627.417 439.483 / 1627.417 Output Total 351 / 3298 626 / 3298 Balance 166.934 / -1670.583 -186.517 / -1670.583 Intake: IV 517.934 / 1077.417 439.483 / 1077.417 Heparin Sodium/Dextrose 25,000 143.6 / 408.333 264.733 / 408.333 units In 500 ml @ 1,100 UNITS/ HR 22 mls/hr IV .[id number] [facility] Rx #:[id number] Magnesium Sulfate / D5w 1 gm In 194.167 / 194.167 100 ml @ 50 mls/hr IV Q2H [facility] Rx#:[id number] Piperacillin/Tazobactam 4.5 gm 120 / 360 120 / 360 In Dextrose 5% 100 ml @ 30 mls/ hr IV Q8H [facility] Rx#:[id number] dilTIAZem HCL 125 mg In 60.167 / 114.917 54.750 / 114.917 Dextrose 5% 100 ml @ 5 MG/HR 5 mls/hr IV .Q24H [facility] Rx#: [id number] Output: Urine Amount (Catheter) 350 / 3255 605 / 3255 Orozco/Indwelling 350 / 3255 605 / 3255 Drain Output / 40 Left Abdomen IRA # Bowel Movements Other: Weight 100 kg Weight Measurement Method Built in [facility] Medications Administered Current Inpatient Medications Acetaminophen (Acetaminophen 325 Mg Tab) 650 mg PO Q4H PRN PRN Reason: Pain Stop: 07/11/23 13:17 Last Admin: 06/11/23 15:06 Dose: 650 mg [facility]asteride ([facility] 5 Mg Tab) [facility] [place] Stop: 07/07/23 09:29 Last Admin: 06/12/23 07:44 Dose: 5 mg Piperacillin Sod/Tazobactam (Sod 4.5 gm/ Dextrose) 120 mls @ 30 mls/hr IV Q8H [facility]; Protocol Stop: 06/16/23 13:59 Last Admin: 06/12/23 05:50 Dose: 30 mls/hr Diltiazem HCl 125 mg/ Dextrose 125 mls @ 5 mls/hr IV .Q24H [facility]; Protocol Stop: 07/09/23 06:14 Last Titration: 06/12/23 06:58 Dose: 5 mg/hr, 5 mls/hr Heparin Sodium/Dextrose (Heparin Sodium/Dextrose) 25,000 units in 500 mls @ 22 mls/hr IV .[id number] [facility]; Protocol Stop: 07/10/23 12:59 Last Titration: 06/12/23 06:58 Dose: 1,100 units/hr, 22 mls/hr Metoprolol Tartrate (Metoprolol Tartrate 100 Mg Tab) 100 mg PO QID [facility] Stop: 07/11/23 12:59 Last Admin: 06/12/23 07:44 Dose: 100 mg Morphine Sulfate (Morphine Sulfate 2 Mg/Ml Carp) 2 mg IV Q2H PRN PRN Reason: Moderate Pain (Scale 4, 5, 6) Stop: 06/20/23 16:58 Last Admin: 06/09/23 18:35 Dose: 2 mg Morphine Sulfate (Morphine Sulfate 4 Mg/Ml 1 Ml Carp\Vial) 4 mg IV Q2H PRN PRN Reason: Severe Pain (Scale 7, 8, 9,10) Stop: 06/20/23 16:58 Ondansetron HCl (Ondansetron Inj 2 Mg/Ml 2 Ml Vial) 4 mg IV Q4H PRN PRN Reason: Nausea And Vomiting Stop: 07/06/23 10:43 Potassium Chloride (Potassium Chloride Crtab 20 Meq Tabcr) 40 meq PO BID [facility] Stop: 07/11/23 20:59 Last Admin: 06/12/23 07:44 Dose: 40 meq
[2023-06-12] MEDS ORDERED: MAGNESIUM OXIDE 400 MG TAB PO ONE (08:35)
--- NOTE | 2023-06-12 08:55 | Surgery Progress Note ---
Date of Service June 12, 2023 Assessment & Plan (1) Perforation of sigmoid colon due to diverticulitis: Plan: s/p diagnostic laparoscopy with abdominal washout and drain placement WBC 8, afebrile. afib with HRs 90-110's Patient was advanced to low fiber yesterday and doing well. no n/v or worsening abdominal pain. + flatus/bms IRA drain character stable, will remove this AM Possible sanchez catheter removal today as per urology stable from surgical standpoint, will continue to follow as above. pt seen. feeling well. IRA scant/serous. will remove today. no acute surgical issues. matthew diet. Admission and Anticipated Discharge Date Admission Date: June 06, 2023 Subjective Patient feeling well from abdominal standpoint. Some intermittent bloating, but no nausea/vomiting. He is tolerating a low fiber diet and passing flatus and BMs. Physical Exam Physical Exam: awake/alert, no distress Gastrointestinal (Abdomen): Inspection/Auscultation: + abdominal surgical incision (incisions c/d/i - skin glue, some ecchymosis noted to R lateral incisions) and + abdominal surgical drain present (IRA drain 20cc last 12 hrs) Percussion/Palpation: + abdomen tender (expected elise incisional discomfort ) and abdomen soft Results & Data Vital Signs (Past 12 Hours) Vital Signs Temp Pulse Pulse Resp BP BP Pulse Ox 06/12/23 07:22 135/87 06/12/23 07:22 108 H 27 H 97 06/12/23 07:20 97 H 17 06/12/23 07:15 101 H 18 06/12/23 07:25 37.2 C 06/12/23 03:56 37.1 C 101 H 15 125/89 96 06/12/23 00:00 115 H 06/11/23 23:01 37.2 C 112 H 17 115/98 95 O2 Del Method 06/12/23 07:22 06/12/23 07:22 Room Air 06/12/23 07:20 06/12/23 07:15 06/12/23 07:25 06/12/23 03:56 Room Air 06/12/23 00:00 06/11/23 23:01 Room Air PG Care Time/CCT Total # of Minutes Spent Total Time Spent with Patient: Total time spent is greater than 50% in coordination of care (as documented) at patient's floor/unit and/or counseling patient: Coding Level of Care Code 52201 Post Operative Follow-Up Diagnoses Perforation of sigmoid colon due to diverticulitis K57.20
[2023-06-12] MEDS ORDERED: DIGOXIN 250 MCG in SYRINGE 9 ML IV STA (12:32)
[2023-06-12] MEDS ORDERED: FUROSEMIDE 40 MG/4 ML VIAL IV ONE (12:34)
[2023-06-12] MEDS: HEPARIN SODIUM/DEXTROSE 25,000 UNITS/500 ML BAG IV SCH ×2 (14:35→14:59)
--- NOTE | 2023-06-12 15:22 | Hospitalist Progress Note ---
Date of Service June 12, 2023 Assessment & Plan (1) Perforation of sigmoid colon due to diverticulitis: Plan 67 year old man with paroxysmal afib, HTN, HLD, iron deficiency anemia, diverticulosis, BPH who underwent recent open right inguinal hernia repair with mesh on April 15, 2023 presented with worsening abd pain and found to have perforated acute sigmoid diverticulitis. He is being managed for the following: Perforation of sigmoid colon due to diverticulitis Sepsis POA: Tachycardia and leukocytosis at presentation, normal lactate at presentation. Admitting CTAP consistent with perforated acute sigmoid diverticulitis. Associated large pocket of gas and fluid within the mesentery which extends for 9.4 cm consistent with a contained perforation. This contains only a small amount of fluid at this time. No rim enhancement. Left nephrolithiasis and multiple bladder calculi. No ureteral calculi. No hydronephrosis. Several renal cysts. Status post diagnostic laparoscopy with abdominal washout and drain placement 06/06/2023. Difficulty with Sanchez placement in OR necessitating intraoperative urology consult who did cystoscopy and Sanchez placement. Patient tolerating diet well, is having semiformed stool, reports improving abdominal pain. Patient's abdominal drain removed 06/12/2023 per surgery. General surgery on board, appreciate recommendation, plan to continue with IV Zosyn with a plan to transition to oral antibiotic tomorrow to complete 14-day course. Maintain low fiber diet. Paroxysmal A-fib: Has h/o Afib. Went into A-fib RVR postoperatively. Maintain K and Mg greater than 4 and 2 respectively. Cardizem drip discontinued. Patient on heparin drip. Cardiology on board, managing beta kiley dose and is started on digoxin. Continue telemetry. Patient would like Eliquis be sent to pharmacy for cost eval, Eliquis has been sent. Will follow-up on the cost. Hypertension: Fairly stable, lisinopril on hold. Bladder calculi Benign localized prostatic hyperplasia with LUTS Urology evaluated, status post cystoscopy in OR and found to have a bladder neck contracture with embedded bladder stone Voiding trial, remove Sanchez. Continue with home finasteride, follow-up with urology on discharge. Hypophosphatemia/hypomagnesemia: Monitor and replete as appropriate Anemia: Hemoglobin stable. Stable. DVT prophylaxis: Heparin GTT CODE STATUS: Full code Admission and Anticipated Discharge Date Admission Date: June 06, 2023 Subjective Patient seen and examined at bedside as a follow-up of perforation of sigmoid colon due to diverticulitis status post diagnostic laparoscopy with abdominal washout and drain placement. Patient was sitting up in bed, on room air, NAD, has his abdominal drain removed today, would like Sanchez catheter be out today, can do voiding trial and remove Sanchez/communication order placed. Patient reports tolerating diet, having semiformed stools, reports abdominal pain getting better. Denies any nausea or vomiting. Patient complains of chronically bloated belly, will initiate Pepcid and follow the response. Physical Exam Physical Exam: GENERAL: Alert and oriented x3. NAD, on RA. HEENT: No pallor, no icterus. Pupils equal, round and reactive to light. Oral mucosa moist. NECK: No JVD, no neck masses. HEART: S1 and S2 heard. irregular rate and rhythm, tachycardic. No murmur, no gallop. RESPIRATORY SYSTEM: Normal AP diameter. No accessory muscle use. No wheezing, no crackles. ABDOMEN: Soft, bowel sounds present, nontender, no distention. LLQ dressing c/d/i. CENTRAL NERVOUS SYSTEM: No facial droop. Speech is clear. Obeys simple commands. Moves extremities. EXTREMITIES: No edema, no erythema seen. sanchez in situ. Results & Data Results & Data Vital Signs (Past 12 Hours) Vital Signs Temp Pulse Pulse Resp BP BP Pulse Ox 06/12/23 14:15 108 H 06/12/23 07:22 135/87 06/12/23 07:22 108 H 27 H 97 06/12/23 07:20 97 H 17 06/12/23 07:15 101 H 18 06/12/23 07:25 37.2 C 06/12/23 03:56 37.1 C 101 H 15 125/89 96 O2 Del Method 06/12/23 14:15 06/12/23 07:22 06/12/23 07:22 Room Air 06/12/23 07:20 06/12/23 07:15 06/12/23 07:25 06/12/23 03:56 Room Air
[2023-06-12] MEDS ORDERED: DIGOXIN 250 MCG in SYRINGE 9 ML IV ONE (18:00)
[2023-06-12] MEDS: MoRPHine SULFATE 2 MG/ML CARP IV PRN (19:38)
[2023-06-12] MEDS: FAMOTIDINE 20 MG TAB PO SCH (21:05)
[2023-06-13] MEDS: PIPERACILLIN/TAZOBACTAM 4.5 GM in DEXTROSE 5% 100 ML IV SCH ×3 (05:56→21:03)
[2023-06-13 06:25] LABS: Hematocrit (blood only) 40.7 % (42.0-52.0); Hemoglobin 13.6 g/dl (14.0-18.0); Mean Corpuscular Hemoglobin 30.4 pg (25.0-34.0); Mean Corpuscular Hgb Conc 33.4 g/dL (32.0-36.0); Mean Corpuscular Volume 91.1 fL (80.0-100.0); Mean Platelet Volume 9.2 fL (9.4-12.4); Platelet Count 277 K/uL (130-400); RDW Coefficient of Variation 14.3 % (11.5-14.5); RDW Standard Deviation 47.4 fL (36.4-46.3); Red Blood Count 4.47 M/uL (4.70-6.10); White Blood Count 8.95 K/ul (4.8-10.8)
[2023-06-13 06:38] LABS: BUN Creatinine Ratio 12.8 (10-20); Calcium 8.8 mg/dl (8.6-10.3); Creatinine Clr Calc Pharmacy 115.6 ml/min; Est GFR (African American) 109.8 ml/min; Est GFR (Non-African American) 94.7 ml/min; Magnesium 1.8 mg/dl (1.7-2.4); Phosphorus 2.5 mg/dl (2.5-4.9); Potassium 4.5 mmol/L (3.5-5.1)
[2023-06-13 07:03] LABS: Partial Thromboplastin Ratio 1.8
[2023-06-13 07:08] LABS: Partial Thromboplastin Time 49.8 Seconds (21.0-31.0)
--- NOTE | 2023-06-13 07:42 | Surgery Progress Note ---
Date of Service June 13, 2023 Assessment & Plan (1) Perforation of sigmoid colon due to diverticulitis: Plan: s/p diagnostic laparoscopy with abdominal washout and drain placement WBC 8, afebrile. afib with HRs 80-110's- cardiology following did have an episode of worsening pain in the LLQ yesterday, feels better today and says it feels more like a gas bubble at this point. will continue to monitor He is otherwise tolerating a diet, but will consider backing down, no n/v and continues to pass flatus/BMs sanchez was removed yesterday and he is voiding well and passing stones without pain Continue IV abx for today as above. some increased pain yesterday...improved now. will back down to clears. please continue IV antibiotics. no fever or elevated wbc but will monitor closely. Admission and Anticipated Discharge Date Admission Date: June 06, 2023 Subjective Patient feeling okay this AM. Does report an episode last night where he had burning pain in the LLQ and required morphine. This AM he states it feels more like a gas bubble and is a little tender to touch, but overall better than last night. He is tolerating a diet well outside of having some indigestion with red pasta sauce and sausage, of which he has been started on pepcid now with some relief. Otherwise he is denying nausea. He continues to pass flatus and have BMs. He is ambulating without issues. Sanchez catheter was removed and he is voiding and passing some stones without pain. Physical Exam Physical Exam: awake/alert, no distress Respiratory: normal respiratory effort Gastrointestinal (Abdomen): Inspection/Auscultation: + abdominal surgical incision (c/d/i, no signs of infection, fading ecchymosis of R lateral incisions) Percussion/Palpation: + abdomen tender (some discomfort to palpation in the LLQ regions, no guarding ) and abdomen soft Results & Data Vital Signs (Past 12 Hours) Vital Signs Temp Pulse Pulse Resp BP Pulse Ox O2 Del Method 06/13/23 07:33 95 H 06/13/23 04:23 36.5 C 84 18 120/85 95 Room Air 06/12/23 23:00 36.7 C 90 18 114/60 95 Room Air PG Care Time/CCT Total # of Minutes Spent Total Time Spent with Patient: Total time spent is greater than 50% in coordination of care (as documented) at patient's floor/unit and/or counseling patient: Coding Level of Care Code 11596 Post Operative Follow-Up Diagnoses Perforation of sigmoid colon due to diverticulitis K57.20
--- NOTE | 2023-06-13 08:00 | Cardiology Progress Note ---
Date of Service June 13, 2023 Assessment & Plan (1) Paroxysmal A-fib: Plan 67 yo man Presenting with perforated sigmoid diverticula Recent hernia repair +Post operative atrial fibrillation Hx of afib in the past - PAF Overnight: * HR 90-100's * Abdominal Drain - removed JVP elevated on exam to 14 cmH20 Plans: * JVP at base of neck * No Lasix dosing on 06/13/23 * K+ goal 4.5-5 * Stop KDUR; will rpelete as needed * Mag goal >2 * Magnesium repletion * BID electrolyte check * AFIB with RVR persists but improving * Continue Lopressor to 100 mg po QID (max dose) * Digoxin load 0.250 mg IV x 1; repeat in 6 hrs * Start Digoxin 0.125 mg po per day for maintenance on 06/13/2023 * Diltiazem infusion (OFF) * Lisinopril - home med - OFF - SBP 132 mmHg * TSH - WNL - 2.5 * CHADsVasc 2 - on Heparin. * Mobilize Franklyn Pacheco Admission and Anticipated Discharge Date Admission Date: June 06, 2023 Supervising Physician Co-Signing Physician Notes Pt seen and evaluated with [facility] staff. Concur with observations and plans. 50min spent addressing challenges, educating and advancing daily plan of care. Franklyn Pacheco Subjective Events Overnight: None reported Subjective: * No chest pain * No Dyspnea Review of Systems Review of Systems: All systems reviewed & are unremarkable except as noted in HPI & below Physical Exam Physical Exam: Overweight man in NAD Glasses JVP 12 cm H20 S1S2 2/6 systolic murmur CTA B on Anterior Exam Abdomen - distended + BS, + tympany No LE edema/swelling Warm and perfusing Neurologically - no deficits noted No major changes overnight Results & Data Vital Signs (Past 12 Hours) Vital Signs Temp Pulse Pulse Resp BP Pulse Ox O2 Del Method 06/13/23 07:46 36.5 C 98 H 16 129/85 94 Room Air 06/13/23 07:33 95 H 06/13/23 04:23 36.5 C 84 18 120/85 95 Room Air 06/12/23 23:00 36.7 C 90 18 114/60 95 Room Air Laboratory Results Coagulation 06/13/23 Range/Units 06:05 APTT 49.8 H* (21.0-31.0) Seconds CBC 06/13/23 Range/Units 06:05 WBC 8.95 (4.8-10.8) K/ul RBC 4.47 L (4.70-6.10) M/uL Hgb 13.6 L (14.0-18.0) g/dl Hct 40.7 L (42.0-52.0) % Plt Count 277 (130-400) K/uL Comprehensive Metabolic Panel 06/13/23 Range/Units 06:05 Sodium 137 (136-145) mmol/L Potassium 4.5 D (3.5-5.1) mmol/L Chloride 105 (98-107) mmol/L Carbon Dioxide 28 (21-32) mmol/L BUN 10 (6-23) mg/dl Creatinine 0.78 (0.6-1.4) mg/dl Glucose 106 H (70-99(Fasting)) mg/dl Calcium 8.8 (8.6-10.3) mg/dl Intake and Output 06/12/23 06/13/23 06/13/23 22:59 06:59 14:59 Intake Total 210.567 / 763.267 220 / 763.267 264.367 / 264.367 Output Total 3600 / 3600 Balance -3389.433 / -2836.733 220 / -2836.733 264.367 / 264.367 Intake: IV 210.567 / 663.267 120 / 663.267 264.367 / 264.367 Heparin Sodium/Dextrose 25,000 90.567 / 266.934 264.367 / 264.367 units In 500 ml @ 1,100 UNITS/ HR 22 mls/hr IV .[id number] [facility] Rx #:[id number] Piperacillin/Tazobactam 4.5 gm 120 / 360 120 / 360 In Dextrose 5% 100 ml @ 30 mls/ hr IV Q8H [facility] Rx#:[id number] Oral 100 / 100 Output: Urine 350 / 350 Urine Amount (Catheter) 3250 / 3250 Orozco/Indwelling 3250 / 3250 Other: Weight 100.3 kg Weight Measurement Method [facility] Medications Administered Current Inpatient Medications Acetaminophen (Acetaminophen 325 Mg Tab) 650 mg PO Q4H PRN PRN Reason: Pain Stop: 07/11/23 13:17 Last Admin: 06/11/23 15:06 Dose: 650 mg Amoxicillin/Clavulanate Potassium (Amoxicillin/Clavulanate 875 Mg Tab) 1 tab PO BID [facility]; Protocol Stop: 06/20/23 20:59 Aspirin (Aspirin 81 Mg Ectab) [address] [facility] Stop: 07/13/23 08:59 Atorvastatin Calcium (Atorvastatin 20 Mg Tab) [address] [facility] Stop: 07/13/23 08:59 Famotidine (Famotidine 20 Mg Tab) 20 mg PO BID [facility] Stop: 07/12/23 20:59 Last Admin: 06/12/23 21:05 Dose: 20 mg Finasteride (Finasteride 5 Mg Tab) [address] [facility] Stop: 07/07/23 09:29 Last Admin: 06/12/23 07:44 Dose: 5 mg Piperacillin Sod/Tazobactam (Sod 4.5 gm/ Dextrose) 120 mls @ 30 mls/hr IV Q8H [facility]; Protocol Stop: 06/13/23 18:00 Last Admin: 06/13/23 05:56 Dose: 30 mls/hr Heparin Sodium/Dextrose (Heparin Sodium/Dextrose) 25,000 units in 500 mls @ 22 mls/hr IV .[id number] [facility]; Protocol Stop: 07/10/23 12:59 Last Titration: 06/13/23 07:07 Dose: 1,100 units/hr, 22 mls/hr Magnesium Oxide (Magnesium Oxide 400 Mg Tab) [address] [facility] Stop: 07/13/23 08:59 Metoprolol Tartrate (Metoprolol Tartrate 100 Mg Tab) 100 mg PO QID [facility] Stop: 07/11/23 12:59 Last Admin: 06/12/23 21:05 Dose: 100 mg Morphine Sulfate (Morphine Sulfate 2 Mg/Ml Carp) 2 mg IV Q2H PRN PRN Reason: Moderate Pain (Scale 4, 5, 6) Stop: 06/20/23 16:58 Last Admin: 06/12/23 19:38 Dose: 2 mg Morphine Sulfate (Morphine Sulfate 4 Mg/Ml 1 Ml Carp\Vial) 4 mg IV Q2H PRN PRN Reason: Severe Pain (Scale 7, 8, 9,10) Stop: 06/20/23 16:58 Last Admin: 06/12/23 22:22 Dose: 4 mg Ondansetron HCl (Ondansetron Inj 2 Mg/Ml 2 Ml Vial) 4 mg IV Q4H PRN PRN Reason: Nausea And Vomiting Stop: 07/06/23 10:43 Last Admin: 06/12/23 19:38 Dose: 4 mg Potassium Chloride (Potassium Chloride Crtab 20 Meq Tabcr) 40 meq PO TID [facility] Stop: 07/12/23 13:59 Last Admin: 06/12/23 21:05 Dose: 40 meq
[2023-06-13] MEDS ORDERED: ASPIRIN 81 MG ECTAB PO SCH (09:00)
[2023-06-13] MEDS ORDERED: POTASSIUM CHLORIDE CRTAB 20 MEQ TABCR PO SCH (09:00)
[2023-06-13] MEDS ORDERED: AMOXICILLIN/CLAVULANATE 875 MG TAB PO SCH ×2 (09:00→21:00)
[2023-06-13] MEDS: FINASTERIDE 5 MG TAB PO SCH (09:55)
[2023-06-13] MEDS: METOPROLOL TARTRATE 100 MG TAB PO SCH ×4 (09:55→21:02)
[2023-06-13] MEDS: FAMOTIDINE 20 MG TAB PO SCH ×2 (09:56→21:02)
[2023-06-13] MEDS: ATORVASTATIN 20 MG TAB PO SCH (09:57)
[2023-06-13] MEDS: MAGNESIUM OXIDE 400 MG TAB PO SCH (09:57)
[2023-06-13] MEDS: MoRPHine SULFATE 2 MG/ML CARP IV PRN ×2 (11:29→20:59)
[2023-06-13] MEDS: HEPARIN SODIUM/DEXTROSE 25,000 UNITS/500 ML BAG IV SCH ×2 (13:21→14:31)
[2023-06-13] MEDS: DIGOXIN 0.125 MG TAB PO SCH (16:24)
--- NOTE | 2023-06-13 17:23 | Hospitalist Progress Note ---
Date of Service June 13, 2023 Assessment & Plan (1) Perforation of sigmoid colon due to diverticulitis: Plan 67 year old man with paroxysmal afib, HTN, HLD, iron deficiency anemia, diverticulosis, BPH who underwent recent open right inguinal hernia repair with mesh on April 15, 2023 presented with worsening abd pain and found to have perforated acute sigmoid diverticulitis. He is being managed for the following: Perforation of sigmoid colon due to diverticulitis Sepsis POA: Tachycardia and leukocytosis at presentation, normal lactate at presentation. Admitting CTAP consistent with perforated acute sigmoid diverticulitis. Associated large pocket of gas and fluid within the mesentery which extends for 9.4 cm consistent with a contained perforation. This contains only a small amount of fluid at this time. No rim enhancement. Left nephrolithiasis and multiple bladder calculi. No ureteral calculi. No hydronephrosis. Several renal cysts. Status post diagnostic laparoscopy with abdominal washout and drain placement 06/06/2023. Difficulty with Sanchez placement in OR necessitating intraoperative urology consult who did cystoscopy and Sanchez placement. Patient tolerating diet well, is having semiformed stool, had abdominal pain overnight, diet back to clears today. Patient's abdominal drain removed 06/12/2023 per surgery. General surgery on board, appreciate recommendation, plan to continue with IV Zosyn with a plan to transition to oral antibiotic to complete 14-day course. Diet advancement per surgery. Paroxysmal A-fib: Has h/o Afib. Went into A-fib RVR postoperatively. Maintain K and Mg greater than 4 and 2 respectively. Cardizem drip discontinued. Patient on heparin drip until stable from Sx standpoint at which point will transition to eliquis. Cardiology on board, managing beta kiley dose and is started on digoxin. Continue telemetry. Eliquis cost is 529/month for patient, patient stated that he will continue with Eliquis for now and will plan to change his insurance for next year to cover Eliquis. Will request to provide him free coupon for first month of Eliquis. Hypertension: Fairly stable, lisinopril on hold. Bladder calculi Benign localized prostatic hyperplasia with LUTS Urology evaluated, status post cystoscopy in OR and found to have a bladder neck contracture with embedded bladder stone Sanchez removed 06/12, patient voiding with no problems, patient reports passing stones without pain. Continue with home finasteride, follow-up with urology on discharge. Hypophosphatemia/hypomagnesemia: Monitor and replete as appropriate Anemia: Hemoglobin stable. Stable. DVT prophylaxis: Heparin GTT CODE STATUS: Full code Admission and Anticipated Discharge Date Admission Date: June 06, 2023 Subjective Patient seen and examined at bedside as a follow-up of perforation of sigmoid colon due to diverticulitis status post diagnostic laparoscopy with abdominal washout and drain placement. Patient was lying in bed, on room air, NAD, had lower abdominal pain overnight requiring morphine which he reports is getting better by the morning. Discussed with surgery, diet back to clears today. Continue with IV antibiotic for now. Patient reports improving currently bloating symptoms after starting Pepcid, will continue. Patient reports having semiformed stool, moving gas, denies nausea or vomiting. Physical Exam Physical Exam: GENERAL: Alert and oriented x3. NAD, on RA. HEENT: No pallor, no icterus. Pupils equal, round and reactive to light. Oral mucosa moist. NECK: No JVD, no neck masses. HEART: S1 and S2 heard. irregular rate and rhythm, tachycardic. No murmur, no gallop. RESPIRATORY SYSTEM: Normal AP diameter. No accessory muscle use. No wheezing, no crackles. ABDOMEN: Soft, bowel sounds present, nontender, no distention. LLQ dressing c/d/i. CENTRAL NERVOUS SYSTEM: No facial droop. Speech is clear. Obeys simple commands. Moves extremities. EXTREMITIES: No edema, no erythema seen. sanchez in situ. Results & Data Results & Data Vital Signs (Past 12 Hours) Vital Signs Temp Pulse Pulse Resp BP Pulse Ox O2 Del Method 06/13/23 16:24 107 H 06/13/23 15:50 36.7 C 98 H 14 132/89 96 Room Air 06/13/23 15:03 94 H 06/13/23 11:21 36.8 C 71 16 132/71 95 Room Air 06/13/23 07:46 36.5 C 98 H 16 129/85 94 Room Air 06/13/23 07:33 95 H
[2023-06-13] MEDS ORDERED: SIMETHICONE 80 MG CHEW PO ONE (18:29)
[2023-06-14] MEDS: PIPERACILLIN/TAZOBACTAM 4.5 GM in DEXTROSE 5% 100 ML IV SCH ×3 (05:36→21:03)
[2023-06-14 06:38] LABS: Basophils # (auto) 0.05 K/uL (0-0.2); Basophils % (auto) 0.5 %; Eosinophils # (auto) 0.16 K/uL (0-0.50); Eosinophils % (auto) 1.7 %; Hematocrit (blood only) 40.7 % (42.0-52.0); Hemoglobin 13.7 g/dl (14.0-18.0); Immature Granulocytes % (auto) 2.2 %; Lymphocytes # (auto) 1.03 K/uL (1.2-3.4); Lymphocytes % (auto) 11.2 %; Mean Corpuscular Hemoglobin 30.4 pg (25.0-34.0); Mean Corpuscular Hgb Conc 33.7 g/dL (32.0-36.0); Mean Corpuscular Volume 90.2 fL (80.0-100.0); Mean Platelet Volume 9.7 fL (9.4-12.4); Monocytes # (auto) 0.94 K/uL (0.11-0.59); Monocytes % (auto) 10.2 %; Neutrophils # (auto) 6.82 K/uL (1.40-6.50); Neutrophils % (auto) 74.2 %; Platelet Count 289 K/uL (130-400); RDW Coefficient of Variation 14.2 % (11.5-14.5); RDW Standard Deviation 46.8 fL (36.4-46.3); Red Blood Count 4.51 M/uL (4.70-6.10)
[2023-06-14 07:00] LABS: BUN Creatinine Ratio 11.4 (10-20); Calcium 8.9 mg/dl (8.6-10.3); Creatinine Clr Calc Pharmacy 114.2 ml/min; Est GFR (African American) 109.2 ml/min; Est GFR (Non-African American) 94.2 ml/min; Potassium 4.1 mmol/L (3.5-5.1)
[2023-06-14 07:10] LABS: Partial Thromboplastin Ratio 1.4; Partial Thromboplastin Time 38.7 Seconds (21.0-31.0)
--- NOTE | 2023-06-14 07:47 | Cardiology Progress Note ---
Date of Service June 14, 2023 Assessment & Plan (1) Paroxysmal A-fib: Plan 67 yo man Presenting with perforated sigmoid diverticula Recent hernia repair +Post operative atrial fibrillation Hx of afib in the past - PAF Overnight: * HR 90-100's * Abdominal Drain - removed JVP elevated on exam to 14 cmH20 Plans: * JVP at base of neck * No Lasix dosing on 06/14/23 * K+ goal 4.5-5 * KDUR - off - K+ is 4.1; will replete as needed * Mag goal >2 * Magnesium repletion * BID electrolyte check * AFIB with RVR persists - improving * STOP Lopressor to 100 mg po QID (max dose) on 06/15/2023 * START Toprol XL 200 mg po BID (equivalent dose/less pills) * Digoxin load (COMPLETED) * Continue Digoxin 0.125 mg po per day for maintenance on 06/13/2023 * Diltiazem infusion (OFF) * Lisinopril - home med - OFF - SBP 132 mmHg * TSH - WNL - 2.5 * CHADsVasc 2 - on Heparin. * If no further plans for surgical intervention, start DOAC (such as Eliquis 5 mg po BID) and discontinue Heparin * Mobilize Franklyn Pacheco Admission and Anticipated Discharge Date Admission Date: June 06, 2023 Supervising Physician Co-Signing Physician Notes Pt seen and evaluated with [facility] staff. Concur with observations and plans. 50min spent addressing challenges, educating and advancing daily plan of care. Franklyn Pacheco Subjective Events Overnight: Subjective: Review of Systems Review of Systems: All systems reviewed & are unremarkable except as noted in HPI & below Physical Exam Physical Exam: Overweight man in NAD Glasses JVP 12 cm H20 S1S2 2/6 systolic murmur CTA B on Anterior Exam Abdomen - distended + BS, + tympany No LE edema/swelling Warm and perfusing Neurologically - no deficits noted No major changes overnight Results & Data Vital Signs (Past 12 Hours) Vital Signs Temp Pulse Pulse Resp BP Pulse Ox O2 Del Method 06/14/23 04:12 36.5 C 95 H 18 114/6 L 95 Room Air 06/14/23 00:30 114 H 06/13/23 23:20 36.8 C 97 H 19 105/75 93 Room Air Laboratory Results Coagulation 06/14/23 06/14/23 Range/Units 06:05 12:56 APTT 38.7 H 47.1 H* (21.0-31.0) Seconds CBC 06/14/23 Range/Units 06:05 WBC 9.20 (4.8-10.8) K/ul RBC 4.51 L (4.70-6.10) M/uL Hgb 13.7 L (14.0-18.0) g/dl Hct 40.7 L (42.0-52.0) % Plt Count 289 (130-400) K/uL Neut # (Auto) 6.82 H (1.40-6.50) K/uL Lymph # (Auto) 1.03 L (1.2-3.4) K/uL Wheeler # (Auto) 0.94 H (0.11-0.59) K/uL Eos # (Auto) 0.16 (0-0.50) K/uL Baso # (Auto) 0.05 (0-0.2) K/uL Comprehensive Metabolic Panel 06/14/23 Range/Units 06:05 Sodium 135 L (136-145) mmol/L Potassium 4.1 (3.5-5.1) mmol/L Chloride 102 (98-107) mmol/L Carbon Dioxide 27 (21-32) mmol/L BUN 9 (6-23) mg/dl Creatinine 0.79 (0.6-1.4) mg/dl Glucose 97 (70-99(Fasting)) mg/dl Calcium 8.9 (8.6-10.3) mg/dl Intake and Output 06/13/23 06/14/23 06/14/23 22:59 06:59 14:59 Intake Total 218.633 / 1424.800 370 / 1424.800 893.033 / 893.033 Output Total 2 / 3 Balance 218.633 / 1421.800 368 / 1421.800 893.033 / 893.033 Intake: IV 218.633 / 874.800 120 / 874.800 443.033 / 443.033 Heparin Sodium/Dextrose 25,000 98.633 / 514.800 323.033 / 323.033 units In 500 ml @ 1,200 UNITS/ HR 24 mls/hr IV .[id number] [facility] Rx #:[id number] Piperacillin/Tazobactam 4.5 gm 120 / 360 120 / 360 120 / 120 In Dextrose 5% 100 ml @ 30 mls/ hr IV Q8H [facility] Rx#:[id number] Oral 250 / 550 450 / 450 Output: # Bowel Movements 2 / 3 Other: # Unmeasured Voids 1 3 Weight 100.1 kg 100.1 kg Patient Weight 06/15/23 06:59 Weight 100.1 kg Medications Administered Current Inpatient Medications Acetaminophen (Acetaminophen 325 Mg Tab) 650 mg PO Q4H PRN PRN Reason: Pain Stop: 07/11/23 13:17 Last Admin: 06/11/23 15:06 Dose: 650 mg Aspirin (Aspirin 81 Mg Ectab) [address] [facility] Stop: 07/13/23 08:59 Last Admin: 06/13/23 12:05 Dose: Not Given Atorvastatin Calcium (Atorvastatin 20 Mg Tab) [address] [facility] Stop: 07/13/23 08:59 Last Admin: 06/14/23 08:24 Dose: 20 mg Digoxin (Digoxin 0.125 Mg Tab) 0.125 mg PO DAILY@1600 [facility] Stop: 07/13/23 15:59 Last Admin: 06/13/23 16:24 Dose: 0.125 mg Finasteride (Finasteride 5 Mg Tab) [address] [facility] Stop: 07/07/23 09:29 Last Admin: 06/14/23 08:24 Dose: 5 mg Piperacillin Sod/Tazobactam (Sod 4.5 gm/ Dextrose) 120 mls @ 30 mls/hr IV Q8H [facility]; Protocol Stop: 06/16/23 13:59 Last Admin: 06/14/23 13:47 Dose: 30 mls/hr Heparin Sodium/Dextrose (Heparin Sodium/Dextrose) 25,000 units in 500 mls @ 24 mls/hr IV .[id number] [facility]; Protocol Stop: 07/10/23 12:59 Last Admin: 06/14/23 09:31 Dose: 1,200 units/hr, 24 mls/hr Sodium Chloride (Nss) 500 mls @ 50 mls/hr IV .Q10H [facility] Stop: 06/14/23 18:14 Last Admin: 06/14/23 08:29 Dose: 50 mls/hr Magnesium Oxide (Magnesium Oxide 400 Mg Tab) [address] [facility] Stop: 07/13/23 08:59 Last Admin: 06/14/23 08:24 Dose: 400 mg Metoprolol Tartrate (Metoprolol Tartrate 100 Mg Tab) 100 mg PO QID [facility] Stop: 07/11/23 12:59 Last Admin: 06/14/23 13:44 Dose: 100 mg Morphine Sulfate (Morphine Sulfate 2 Mg/Ml Carp) 2 mg IV Q2H PRN PRN Reason: Moderate Pain (Scale 4, 5, 6) Stop: 06/20/23 16:58 Last Admin: 06/13/23 20:59 Dose: 2 mg Morphine Sulfate (Morphine Sulfate 4 Mg/Ml 1 Ml Carp\Vial) 4 mg IV Q2H PRN PRN Reason: Severe Pain (Scale 7, 8, 9,10) Stop: 06/20/23 16:58 Last Admin: 06/12/23 22:22 Dose: 4 mg Ondansetron HCl (Ondansetron Inj 2 Mg/Ml 2 Ml Vial) 4 mg IV Q4H PRN PRN Reason: Nausea And Vomiting Stop: 07/06/23 10:43 Last Admin: 06/12/23 19:38 Dose: 4 mg Pantoprazole Sodium (Pantoprazole 40 Mg Tab) 40 mg PO BID [facility] Stop: 07/14/23 20:59 Simethicone (Simethicone 80 Mg Chew) 80 mg PO Q6H PRN PRN Reason: Flatulence Stop: 07/14/23 10:16
--- NOTE | 2023-06-14 07:50 | Surgery Progress Note ---
Date of Service June 14, 2023 Assessment & Plan (1) Perforation of sigmoid colon due to diverticulitis: Plan: s/p diagnostic laparoscopy with abdominal washout and drain placement WBC 9, afebrile. afib with HRs 90-110's- cardiology following, on hep gtt still having ongoing LLQ discomfort, worse with movement. similar to yesterday. also dealing with gas, received gas-x yesterday and morphine we backed him down to clears yesterday, he is having no issues with diet at this point continue on IV abx for now may consider repeat CT scan at some point for further evaluation as above. repeat ct reviewed. clinically no indication of abcess...afebrile, wbc normal...pt currently feeling improved after gas/bm. "hungry". will try full liquids continue iv antibiotics. no urgent indication for surgery. Admission and Anticipated Discharge Date Admission Date: June 06, 2023 Subjective Patient feeling about the same as yesterday. Still dealing with bothersome LLQ discomfort. It is worse when he moves around, rates it about 4-5 at its worst. He is passing flatus/BMs, but still intermittently feels bloated and complaints of abdominal gas. He denies any nausea/vomiting and otherwise tolerating clear liquids. Physical Exam Physical Exam: awake/alert, no distress Gastrointestinal (Abdomen): Inspection/Auscultation: + abdominal surgical incision (c/d/i, fading ecchymosis of R lateral incisions ) Percussion/Palpation: + abdomen tender (discomfort to palpation in the LLQ ) and abdomen soft Results & Data Vital Signs (Past 12 Hours) Vital Signs Temp Pulse Pulse Resp BP Pulse Ox O2 Del Method 06/14/23 04:12 36.5 C 95 H 18 114/6 L 95 Room Air 06/14/23 00:30 114 H 06/13/23 23:20 36.8 C 97 H 19 105/75 93 Room Air PG Care Time/CCT Total # of Minutes Spent Total Time Spent with Patient: Total time spent is greater than 50% in coordination of care (as documented) at patient's floor/unit and/or counseling patient: Coding Level of Care Code 79969 Post Operative Follow-Up Diagnoses Perforation of sigmoid colon due to diverticulitis K57.20
[2023-06-14] MEDS ORDERED: SODIUM CHLORIDE 0.9% 500 ML IV SCH (08:15)
[2023-06-14] MEDS: METOPROLOL TARTRATE 100 MG TAB PO SCH ×4 (08:24→20:58)
[2023-06-14] MEDS: FAMOTIDINE 20 MG TAB PO SCH (08:24)
[2023-06-14] MEDS: ATORVASTATIN 20 MG TAB PO SCH (08:24)
[2023-06-14] MEDS: FINASTERIDE 5 MG TAB PO SCH (08:24)
[2023-06-14] MEDS: MAGNESIUM OXIDE 400 MG TAB PO SCH (08:24)
[2023-06-14] MEDS ORDERED: OPTIRAY 320 100ml IV ONE (09:14)
[2023-06-14] MEDS: HEPARIN SODIUM/DEXTROSE 25,000 UNITS/500 ML BAG IV SCH ×2 (09:31→20:56)
[2023-06-14] MEDS ORDERED: SIMETHICONE 80 MG CHEW PO PRN (10:17)
--- NOTE | 2023-06-14 10:48 | CT Scan Report ---
CT SCAN OF THE ABDOMEN AND PELVIS WITH IV CONTRAST CLINICAL HISTORY: Follow-up diverticulitis with perforation. COMPARISON STUDY: Abdominal CT dated 06/06/2023. TECHNIQUE: Following the IV administration of 93 cc of Optiray 320, CT scan of the abdomen and pelvi s is performed from the lung bases to the proximal femora. Images are reviewed in the axial, sagittal , and coronal planes. IV contrast was administered without complication. A dose lowering technique wa s utilized adhering to the principles of ALARA. CT DOSE: 1401.07 mGy.cm FINDINGS: Lung bases: The heart is normal in size and without pericardial effusion. Linear atelectasis is seen at both lung bases. No airspace consolidation or pleural effusion is identified. Liver: The contrast-enhanced liver is normal in size, contour, and attenuation. There is no intrahepa tic biliary ductal dilatation. The hepatic veins and portal veins are patent. Gallbladder: Unremarkable. Spleen: Normal in size and attenuation. Pancreas: Unremarkable. Adrenal glands: Unremarkable. Kidneys: The contrast enhanced kidneys are normal in size and without hydronephrosis. The kidneys enh ance symmetrically. A 6.3 cm renal sinus cyst is again seen on the left. This contains calcifications . Nonobstructing left renal calculi measuring up to 1.4 cm. A 2.5 cm cyst is noted on the right. No u reteral stone is seen. Abdominal vasculature: The abdominal aorta is normal in course and caliber noting mild to moderate at herosclerotic calcification. Stomach and bowel: There is a large hiatal hernia, with the majority of the stomach located in the th orax. There is no bowel obstruction. There is mild to moderate diverticulosis of the left colon with acute diverticulitis of the distal descending/proximal sigmoid. Surrounding inflammation has modestly improved from the 06/06/2023 examination. There is evidence of perforation, with gas and fluid/phlegmo nous change seen tracking superiorly from the sigmoid colon. A peripherally enhancing fluid collectio n in the central mesentery on image #260 measures 3.6 x 2.8 x 4.5 cm in maximum dimension. This likel y represent an abscess. A developing fistula is not excluded. A peripherally enhancing The appendix i s well-visualized and normal. Peritoneum: Foci of intraperitoneal free air are seen in the left lower quadrant and along the centra l mesentery. There is trace free fluid in the pelvis. There is a small fat-containing umbilical herni a. Lymphadenopathy: None. Pelvic viscera: The prostate gland is diminutive and heterogeneous. The bladder wall appears thickene d/trabeculated indicating chronic outlet obstruction. The majority of the bladder stones seen on 2022 have resolved. Residual calculi are noted at the superior aspect of the prostate gland. There ar e bilateral fat-containing inguinal hernias, left larger than right. The right internal hernia contai ns trace fluid. Skeletal structures: There is mild lumbosacral spondylosis, with postsurgical change of L4-L5 spinal fusion. No lytic or blastic lesions are seen. IMPRESSION: 1. Again seen is perforated diverticulitis of the distal descending/proximal sigmoid colon. The degre e of surrounding inflammation is modestly improved as compared to 06/06/2023. 2. Intraperitoneal free air and fluid/phlegmonous change is again seen tracking superiorly from the s igmoid colon. 3. There is a peripherally enhancing fluid collection above the sigmoid colon in the posterior mesent van. This likely represents an abscess. A developing fistula is not excluded. 4. Trace pelvic ascites. 5. Left-sided nephrolithiasis. 6. Large hiatal hernia. 7. Additional findings as above. ACT 112: Negative or not required by law. Electronically signed by: Teo Calderon M.D. 06/14/2023 10:46 AM
[2023-06-14 13:53] LABS: Partial Thromboplastin Ratio 1.7
[2023-06-14 14:02] LABS: Partial Thromboplastin Time 47.1 Seconds (21.0-31.0)
--- NOTE | 2023-06-14 15:19 | Hospitalist Progress Note ---
Date of Service June 14, 2023 Assessment & Plan (1) Perforation of sigmoid colon due to diverticulitis: Plan 67 year old man with paroxysmal afib, HTN, HLD, iron deficiency anemia, diverticulosis, BPH who underwent recent open right inguinal hernia repair with mesh on April 15, 2023 presented with worsening abd pain and found to have perforated acute sigmoid diverticulitis. He is being managed for the following: Perforation of sigmoid colon due to diverticulitis Sepsis POA: Tachycardia and leukocytosis at presentation, normal lactate at presentation. Admitting CTAP consistent with perforated acute sigmoid diverticulitis. Associated large pocket of gas and fluid within the mesentery which extends for 9.4 cm consistent with a contained perforation. This contains only a small amount of fluid at this time. No rim enhancement. Left nephrolithiasis and multiple bladder calculi. No ureteral calculi. No hydronephrosis. Several renal cysts. Status post diagnostic laparoscopy with abdominal washout and drain placement 06/06/2023. Difficulty with Orozco placement in OR necessitating intraoperative urology consult who did cystoscopy and Orozco placement. Patient tolerating diet well, is having semiformed stool, reports feeling better. Patient's abdominal drain removed 06/12/2023 per surgery. General surgery on board, appreciate recommendation, plan to continue with IV Zosyn with a plan to transition to oral antibiotic to complete 14-day course. Diet advancement per surgery. On Full liq diet today. Paroxysmal A-fib: Has h/o Afib on aspirin. Went into A-fib RVR postoperatively. Maintain K and Mg greater than 4 and 2 respectively. Cardizem drip discontinued. Patient on heparin drip until stable from Sx standpoint at which point will transition to eliquis. Will transition to eliquis from today evening. Cardiology on board, managing beta kiley dose and is started on digoxin. Continue telemetry. Eliquis cost is 529/month for patient, patient stated that he will continue with Eliquis for now and will plan to change his insurance for next year to cover Eliquis. Requested to provide him free coupon for first month of Eliquis. Hypertension: Fairly stable, lisinopril off. Likely Acid Peptic Disease: Pt w/ chronic bloating symptomps, relieved partially with pepcid, will put on PPI from today and prn simethicone. Bladder calculi Benign localized prostatic hyperplasia with LUTS Urology evaluated, status post cystoscopy in OR and found to have a bladder neck contracture with embedded bladder stone Orozco removed 06/12, patient voiding with no problems, patient reports passing stones without pain. Continue with home finasteride, follow-up with urology on discharge. Hypophosphatemia/hypomagnesemia: Monitor and replete as appropriate Anemia: Hemoglobin stable. Stable. DVT prophylaxis: Heparin GTT CODE STATUS: Full code Admission and Anticipated Discharge Date Admission Date: June 06, 2023 Subjective Patient seen and examined at bedside as a follow-up of perforation of sigmoid colon due to diverticulitis status post diagnostic laparoscopy with abdominal washout and drain placement. Patient was lying in bed, on room air, NAD, has bloating yesterday evening relieved with simethicone. Discussed with surgery, advancement of diet and no plan for Sx/hence can put him on doac. Will DC heparin from evening and start him on eliquis which patient wanted to be put on. Continue with IV antibiotic for now. Patient reports improving currently bloating symptoms after starting Pepcid, but still having bloating. Will change pepcid to ppi. Patient reports having semiformed stool, moving gas, denies nausea or vomiting. Physical Exam Physical Exam: GENERAL: Alert and oriented x3. NAD, on RA. HEENT: No pallor, no icterus. Pupils equal, round and reactive to light. Oral mucosa moist. NECK: No JVD, no neck masses. HEART: S1 and S2 heard. irregular rate and rhythm, tachycardic. No murmur, no gallop. RESPIRATORY SYSTEM: Normal AP diameter. No accessory muscle use. No wheezing, no crackles. ABDOMEN: Soft, bowel sounds present, nontender, no distention. LLQ dressing c/d/i. CENTRAL NERVOUS SYSTEM: No facial droop. Speech is clear. Obeys simple commands. Moves extremities. EXTREMITIES: No edema, no erythema seen. Results & Data Results & Data Vital Signs (Past 12 Hours) Vital Signs Temp Pulse Pulse Resp BP BP Pulse Ox 06/14/23 13:41 96 H 125/83 06/14/23 10:35 36.6 C 91 H 19 116/82 96 06/14/23 07:00 113 H 06/14/23 07:30 06/14/23 07:30 36.4 C L 105 H 23 115/82 95 06/14/23 04:12 36.5 C 95 H 18 114/6 L 95 O2 Del Method 06/14/23 13:41 06/14/23 10:35 Room Air 06/14/23 07:00 06/14/23 07:30 Room Air 06/14/23 07:30 Room Air 06/14/23 04:12 Room Air
[2023-06-14] MEDS: DIGOXIN 0.125 MG TAB PO SCH (16:05)
[2023-06-14] MEDS: APIXABAN 5 MG TABLET PO SCH (20:58)
[2023-06-14] MEDS: PANTOprazole 40 MG TAB PO SCH (20:58)
[2023-06-14] MEDS ORDERED: HEPARIN ~ STOP ORDER ONE (21:00)
[2023-06-14] MEDS: MoRPHine SULFATE 2 MG/ML CARP IV PRN (22:24)
[2023-06-15 06:10] LABS: Creatinine Clr Calc Pharmacy 115.7 ml/min; Est GFR (African American) 109.8 ml/min; Est GFR (Non-African American) 94.7 ml/min
[2023-06-15 06:19] LABS: Partial Thromboplastin Ratio 1.1; Partial Thromboplastin Time 29.9 Seconds (21.0-31.0)
[2023-06-15] MEDS: PIPERACILLIN/TAZOBACTAM 4.5 GM in DEXTROSE 5% 100 ML IV SCH ×3 (06:26→19:49)
--- NOTE | 2023-06-15 07:40 | Cardiology Progress Note ---
Date of Service June 15, 2023 Assessment & Plan (1) Paroxysmal A-fib: Plan Pt seen and evaluated with [facility] staff 67 yo man Presenting with perforated sigmoid diverticula Recent hernia repair +Post operative atrial fibrillation Hx of afib in the past - PAF Overnight: * HR 90-100's * Abdominal Drain - removed JVP elevated on exam to 14 cmH20 Plans: * JVP at base of neck * No Lasix dosing on 06/15/23 * Checking BMP + Magnesium * K+ goal 4.5-5 * Mag goal >2 * AFIB with RVR persists - ventricular improving * STOP Lopressor 100 mg po QID * Start Toprol XL 200 mg po BID (equivalent dose/less pills) * Digoxin load (COMPLETED) * Continue Digoxin 0.125 mg po per day for maintenance * Diltiazem infusion (OFF) * Lisinopril - home med - currently OFF -If SBPs trend consistently above 140 mmHg, consider restarting Lisinopril @ 5 mg po per day * TSH - WNL - 2.5 * CHADsVasc 2 * Heparin - OFF * Eliquis 5 mg po BID - STARTED - no bleeding noted * Mobilize * Patient to follow up with [facility] within the next 2 weeks * Potential Cardioversion if still in afib in 1 month * Please call with any additional questions Franklyn Pacheco Admission and Anticipated Discharge Date Admission Date: June 06, 2023 Subjective Events Overnight: * + NSVT overnight Subjective: Review of Systems Review of Systems: All systems reviewed & are unremarkable except as noted in HPI & below Physical Exam Physical Exam: Overweight man in NAD Glasses JVP 12 cm H20 S1S2 2/6 systolic murmur CTA B on Anterior Exam Abdomen - distended + BS, + tympany No LE edema/swelling Warm and perfusing Neurologically - no deficits noted No major changes overnight Results & Data Vital Signs (Past 12 Hours) Vital Signs Temp Pulse Pulse Resp BP Pulse Ox O2 Del Method 06/15/23 07:36 36.6 C 89 20 147/88 H 90 Room Air 06/15/23 03:30 36.7 C 94 H 20 129/91 95 Room Air 06/14/23 23:00 100 H 06/14/23 21:26 Room Air 06/14/23 22:29 36.9 C 95 H 16 140/92 93 Room Air Laboratory Results Coagulation 06/14/23 06/15/23 Range/Units 12:56 05:17 APTT 47.1 H* 29.9 (21.0-31.0) Seconds Comprehensive Metabolic Panel 06/15/23 Range/Units 05:17 Creatinine 0.78 (0.6-1.4) mg/dl Intake and Output 06/14/23 06/15/23 06/15/23 22:59 06:59 14:59 Intake Total 1734.4 / 2747.433 120 / 2747.433 Balance 1734.4 / 2747.433 120 / 2747.433 Intake: IV 894.4 / 1457.433 120 / 1457.433 Heparin Sodium/Dextrose 25,000 274.4 / 597.433 units In 500 ml @ 1,200 UNITS/ HR 24 mls/hr IV .[id number] [facility] Rx #:[id number] Piperacillin/Tazobactam 4.5 gm 120 / 360 120 / 360 In Dextrose 5% 100 ml @ 30 mls/ hr IV Q8H [facility] Rx#:[id number] Sodium Chloride 0.9% 500 ml @ 500 / 500 50 mls/hr IV .Q10H [facility] Rx#: [id number] Oral 840 / 1290 Other: # Unmeasured Voids 3 3 Medications Administered Current Inpatient Medications Acetaminophen (Acetaminophen 325 Mg Tab) 650 mg PO Q4H PRN PRN Reason: Pain Stop: 07/11/23 13:17 Last Admin: 06/11/23 15:06 Dose: 650 mg Apixaban (Apixaban 5 Mg Tablet) 5 mg PO BID [facility] Stop: 07/14/23 20:59 Last Admin: 06/14/23 20:58 Dose: 5 mg Atorvastatin Calcium (Atorvastatin 20 Mg Tab) 20 mg PO QAM [facility] Stop: 07/13/23 08:59 Last Admin: 06/14/23 08:24 Dose: 20 mg Digoxin (Digoxin 0.125 Mg Tab) 0.125 mg PO DAILY@1600 [facility] Stop: 07/13/23 15:59 Last Admin: 06/14/23 16:05 Dose: 0.125 mg Finasteride (Finasteride 5 Mg Tab) 5 mg PO QAM [facility] Stop: 07/07/23 09:29 Last Admin: 06/14/23 08:24 Dose: 5 mg Piperacillin Sod/Tazobactam (Sod 4.5 gm/ Dextrose) 120 mls @ 30 mls/hr IV Q8H [facility]; Protocol Stop: 06/16/23 13:59 Last Admin: 06/15/23 06:26 Dose: 30 mls/hr Magnesium Oxide (Magnesium Oxide 400 Mg Tab) 400 mg PO QAM [facility] Stop: 07/13/23 08:59 Last Admin: 06/14/23 08:24 Dose: 400 mg Metoprolol Tartrate (Metoprolol Tartrate 100 Mg Tab) 100 mg PO QID [facility] Stop: 07/11/23 12:59 Last Admin: 06/14/23 20:58 Dose: 100 mg Morphine Sulfate (Morphine Sulfate 2 Mg/Ml Carp) 2 mg IV Q2H PRN PRN Reason: Moderate Pain (Scale 4, 5, 6) Stop: 06/20/23 16:58 Last Admin: 06/14/23 22:24 Dose: 2 mg Morphine Sulfate (Morphine Sulfate 4 Mg/Ml 1 Ml Carp\Vial) 4 mg IV Q2H PRN PRN Reason: Severe Pain (Scale 7, 8, 9,10) Stop: 06/20/23 16:58 Last Admin: 06/12/23 22:22 Dose: 4 mg Ondansetron HCl (Ondansetron Inj 2 Mg/Ml 2 Ml Vial) 4 mg IV Q4H PRN PRN Reason: Nausea And Vomiting Stop: 07/06/23 10:43 Last Admin: 06/12/23 19:38 Dose: 4 mg Pantoprazole Sodium (Pantoprazole 40 Mg Tab) 40 mg PO BID [facility] Stop: 07/14/23 20:59 Last Admin: 06/14/23 20:58 Dose: 40 mg Simethicone (Simethicone 80 Mg Chew) 80 mg PO Q6H PRN PRN Reason: Flatulence Stop: 07/14/23 10:16
[2023-06-15] MEDS: MAGNESIUM OXIDE 400 MG TAB PO SCH (08:12)
[2023-06-15] MEDS: ATORVASTATIN 20 MG TAB PO SCH (08:12)
[2023-06-15] MEDS: METOPROLOL TARTRATE 100 MG TAB PO SCH ×2 (08:12→13:05)
[2023-06-15] MEDS: FINASTERIDE 5 MG TAB PO SCH (08:12)
[2023-06-15] MEDS: PANTOprazole 40 MG TAB PO SCH ×2 (08:12→19:44)
[2023-06-15] MEDS: APIXABAN 5 MG TABLET PO SCH ×2 (08:34→19:43)
[2023-06-15 09:47] LABS: Calcium 8.5 mg/dl (8.6-10.3); Magnesium 1.8 mg/dl (1.7-2.4); Potassium 4.1 mmol/L (3.5-5.1)
--- NOTE | 2023-06-15 09:57 | Surgery Progress Note ---
Date of Service June 15, 2023 Assessment & Plan (1) Perforation of sigmoid colon due to diverticulitis: Plan: Slowly improving. No leukocytosis and afebrile. Considering his step backwards midweek I prefer we keep him on full liquids 1 more day. If he has an u neventful 24 hours we can try low residue tomorrow. Again I would continue IV antibiotics for now Admission and Anticipated Discharge Date Admission Date: June 06, 2023 Subjective Patient seen. Has a large amount of flatus last night which seemed to improve his symptoms some. He did have some soreness that required some morphine last night but feels well today. Physical Exam Physical Exam: Alert. No acute distress Abdomen is soft with minimal suprapubic tenderness. No guarding or peritoneal signs. Does seem to have improved over the last 48 hours Results & Data Vital Signs (Past 12 Hours) Vital Signs Temp Pulse Pulse Resp BP Pulse Ox O2 Del Method 06/15/23 08:00 100 H 06/15/23 07:36 36.6 C 89 20 147/88 H 90 Room Air 06/15/23 03:30 36.7 C 94 H 20 129/91 95 Room Air 06/14/23 23:00 100 H 06/14/23 22:29 36.9 C 95 H 16 140/92 93 Room Air PG Care Time/CCT Total # of Minutes Spent Total Time Spent with Patient: Total time spent is greater than 50% in coordination of care (as documented) at patient's floor/unit and/or counseling patient: Coding Level of Care Code 58807 Post Operative Follow-Up Diagnoses Perforation of sigmoid colon due to diverticulitis K57.20
--- NOTE | 2023-06-15 15:39 | Hospitalist Progress Note ---
Date of Service June 15, 2023 Assessment & Plan (1) Perforation of sigmoid colon due to diverticulitis: Plan 67 year old man with paroxysmal afib, HTN, HLD, iron deficiency anemia, diverticulosis, BPH who underwent recent open right inguinal hernia repair with mesh on April 15, 2023 presented with worsening abd pain and found to have perforated acute sigmoid diverticulitis. He is being managed for the following: Perforation of sigmoid colon due to diverticulitis Sepsis POA: Tachycardia and leukocytosis at presentation, normal lactate at presentation. Admitting CTAP consistent with perforated acute sigmoid diverticulitis. Associated large pocket of gas and fluid within the mesentery which extends for 9.4 cm consistent with a contained perforation. This contains only a small amount of fluid at this time. No rim enhancement. Left nephrolithiasis and multiple bladder calculi. No ureteral calculi. No hydronephrosis. Several renal cysts. Status post diagnostic laparoscopy with abdominal washout and drain placement 06/06/2023. Difficulty with Orozco placement in OR necessitating intraoperative urology consult who did cystoscopy and Orozco placement. Patient tolerating full liquid diet well, is moving bowel, reports feeling better. Patient's abdominal drain removed 06/12/2023 per surgery. General surgery on board, appreciate recommendation, plan to continue with IV Zosyn with a plan to transition to oral antibiotic to complete 14-day course. Diet advancement per surgery. On Full liq diet today. Paroxysmal A-fib: Has h/o Afib on aspirin. Went into A-fib RVR postoperatively. Maintain K and Mg greater than 4 and 2 respectively. Cardizem drip discontinued. Status post loading dose of digoxin, currently on maintenance dose of digoxin. Status post heparin drip, currently on p.o. Eliquis. Patient received precoupon for first month. Will DC aspirin. Cardiology on board, managing beta-kiley and digoxin. Appreciate recommendation. Rate getting better. Hypertension: Fairly stable, lisinopril off, may restart at 5 mg daily if SBP consistently above 140 mmHg. Likely Acid Peptic Disease: Pt w/ chronic bloating symptomps, relieved partially with pepcid, will put on PPI from today and prn simethicone. Might benefit from OP GI eval. Bladder calculi Benign localized prostatic hyperplasia with LUTS Urology evaluated, status post cystoscopy in OR and found to have a bladder neck contracture with embedded bladder stone Orozco removed 06/12, patient voiding with no problems, patient reports passing st ones without pain. Continue with home finasteride, follow-up with urology on discharge. Hypophosphatemia/hypomagnesemia: Monitor and replete as appropriate Anemia: Hemoglobin stable. DVT prophylaxis: Eliquis CODE STATUS: Full code Admission and Anticipated Discharge Date Admission Date: June 06, 2023 Subjective Patient seen and examined at bedside as a follow-up of perforation of sigmoid colon due to diverticulitis status post diagnostic laparoscopy with abdominal washout and drain placement. Patient was lying in bed, on room air, NAD, did pass large amount of flatus yesterday with some relief of symptoms, had lower abdominal soreness with as needed morphine. Surgery on board, recommending full liquid diet today and continue with IV antibiotic for now. Patient reports continued improvement in his bloating symptoms. We will continue PPI. Patient reports moving stool, moving gas, denies nausea or vomiting. Physical Exam Physical Exam: GENERAL: Alert and oriented x3. NAD, on RA. HEENT: No pallor, no icterus. Pupils equal, round and reactive to light. Oral mucosa moist. NECK: No JVD, no neck masses. HEART: S1 and S2 heard. irregular rate and rhythm, tachycardic. No murmur, no gallop. RESPIRATORY SYSTEM: Normal AP diameter. No accessory muscle use. No wheezing, no crackles. ABDOMEN: Soft, bowel sounds present, nontender, no distention. LLQ dressing c/d/i. CENTRAL NERVOUS SYSTEM: No facial droop. Speech is clear. Obeys simple commands. Moves extremities. EXTREMITIES: No edema, no erythema seen. Results & Data Results & Data Vital Signs (Past 12 Hours) Vital Signs Temp Pulse Pulse Resp BP Pulse Ox O2 Del Method 06/15/23 11:25 100 H 06/15/23 10:52 36.7 C 89 21 111/78 95 Room Air 06/15/23 08:00 100 H 06/15/23 07:36 36.6 C 89 20 147/88 H 90 Room Air
[2023-06-15] MEDS: DIGOXIN 0.125 MG TAB PO SCH (15:45)
[2023-06-15] MEDS: METOPROLOL SUCC 50MG EXT REL TAB PO SCH (19:43)
[2023-06-16] MEDS: PIPERACILLIN/TAZOBACTAM 4.5 GM in DEXTROSE 5% 100 ML IV SCH ×3 (05:34→22:03)
[2023-06-16 06:25] LABS: Basophils # (auto) 0.04 K/uL (0-0.2); Basophils % (auto) 0.4 %; Eosinophils # (auto) 0.15 K/uL (0-0.50); Eosinophils % (auto) 1.5 %; Hematocrit (blood only) 39.6 % (42.0-52.0); Hemoglobin 13.1 g/dl (14.0-18.0); Lymphocytes # (auto) 1.03 K/uL (1.2-3.4); Lymphocytes % (auto) 10.2 %; Mean Corpuscular Hemoglobin 29.8 pg (25.0-34.0); Mean Corpuscular Hgb Conc 33.1 g/dL (32.0-36.0); Mean Corpuscular Volume 90.2 fL (80.0-100.0); Mean Platelet Volume 9.8 fL (9.4-12.4); Monocytes # (auto) 0.95 K/uL (0.11-0.59); Monocytes % (auto) 9.4 %; Neutrophils # (auto) 7.81 K/uL (1.40-6.50); Neutrophils % (auto) 77.5 %; Platelet Count 300 K/uL (130-400); RDW Standard Deviation 46.3 fL (36.4-46.3); Red Blood Count 4.39 M/uL (4.70-6.10); White Blood Count 10.08 K/ul (4.8-10.8)
[2023-06-16 06:39] LABS: BUN Creatinine Ratio 9.7 (10-20); Calcium 8.6 mg/dl (8.6-10.3); Creatinine Clr Calc Pharmacy 124.6 ml/min; Est GFR (African American) 113.5 ml/min; Est GFR (Non-African American) 97.9 ml/min; Potassium 3.9 mmol/L (3.5-5.1)
[2023-06-16 06:51] LABS: Partial Thromboplastin Ratio 1.1; Partial Thromboplastin Time 29.8 Seconds (21.0-31.0)
--- NOTE | 2023-06-16 08:17 | Hospitalist Progress Note ---
Date of Service June 16, 2023 Assessment & Plan (1) Perforation of sigmoid colon due to diverticulitis: Plan 67 year old man with paroxysmal afib, HTN, HLD, iron deficiency anemia, diverticulosis, BPH who underwent recent open right inguinal hernia repair with mesh on April 15, 2023 presented with worsening abd pain and found to have perforated acute sigmoid diverticulitis. He is being managed for the following: Perforation of sigmoid colon due to diverticulitis Sepsis POA: Tachycardia and leukocytosis at presentation, normal lactate at presentation. Admitting CTAP consistent with perforated acute sigmoid diverticulitis. Associated large pocket of gas and fluid within the mesentery which extends for 9.4 cm consistent with a contained perforation. This contains only a small amount of fluid at this time. No rim enhancement. Left nephrolithiasis and multiple bladder calculi. No ureteral calculi. No hydronephrosis. Several renal cysts. Status post diagnostic laparoscopy with abdominal washout and drain placement 06/06/2023. Difficulty with Orozco placement in OR necessitating intraoperative urology consult who did cystoscopy and Orozco placement. Patient tolerating full liquid diet well, is moving bowel, reports feeling better. Patient's abdominal drain removed 06/12/2023 per surgery. General surgery on board, appreciate recommendation, plan to continue with IV Zosyn with a plan to transition to oral antibiotic to complete 14-day course. Diet advancement per surgery. Paroxysmal A-fib: Has h/o Afib on aspirin. Went into A-fib RVR postoperatively. Maintain K and Mg greater than 4 and 2 respectively. Cardizem drip discontinued. Status post loading dose of digoxin, currently on maintenance dose of digoxin. Status post heparin drip, currently on p.o. Eliquis. Patient received free-coupon for first month of Eliquis. Will DC aspirin. Cardiology on board, managing beta-kiley and digoxin. Appreciate recommendation. Rate getting better. Hypertension: Fairly stable, lisinopril off, may restart at 5 mg daily if SBP consistently above 140 mmHg. Likely Acid Peptic Disease: Pt w/ chronic bloating symptoms, relieved partially with Pepcid, will put on PPI from today and prn simethicone. Might benefit from OP GI eval. Bladder calculi Benign localized prostatic hyperplasia with LUTS Urology evaluated, status post cystoscopy in OR and found to have a bladder neck contracture with embedded bladder stone Orozco removed 06/12, patient voiding with no problems, patient reports passing stones without pain. Continue with home finasteride, follow-up with urology on discharge. Hypophosphatemia/hypomagnesemia: Monitor and replete as appropriate Anemia: Hemoglobin stable. DVT prophylaxis: Eliquis CODE STATUS: Full code Disposition: Pending surgical clearance Admission and Anticipated Discharge Date Admission Date: June 06, 2023 Subjective Patient seen and examined at bedside as a follow-up of perforation of sigmoid colon due to diverticulitis status post diagnostic laparoscopy with abdominal washout and drain placement. Patient was lying in bed, on room air, NAD, has been tolerating full liquid diet, had better pain control and did not require any pain medication last night. Surgery on board, diet advancement and transition to oral antibiotics per surgery recommendation. Patient reports continued improvement in his bloating symptoms. We will continue PPI. Patient reports moving stool, moving gas, denies nausea or vomiting. Physical Exam Physical Exam: GENERAL: Alert and oriented x3. NAD, on RA. HEENT: No pallor, no icterus. Pupils equal, round and reactive to light. Oral mucosa moist. NECK: No JVD, no neck masses. HEART: S1 and S2 heard. irregular rate and rhythm, tachycardic. No murmur, no gallop. RESPIRATORY SYSTEM: Normal AP diameter. No accessory muscle use. No wheezing, no crackles. ABDOMEN: Soft, bowel sounds present, nontender, no distention. LLQ dressing c/d/i. CENTRAL NERVOUS SYSTEM: No facial droop. Speech is clear. Obeys simple commands. Moves extremities. EXTREMITIES: No edema, no erythema seen. Results & Data Results & Data Vital Signs (Past 12 Hours) Vital Signs Temp Pulse Pulse Pulse Resp BP Pulse Ox 06/16/23 07:15 06/16/23 07:00 98 H 06/16/23 07:09 36.8 C 101 H 20 135/88 94 06/16/23 03:49 36.7 C 96 H 14 127/88 96 06/15/23 23:25 90 06/15/23 23:03 36.8 C 100 H 18 119/86 94 O2 Del Method 06/16/23 07:15 Room Air 06/16/23 07:00 06/16/23 07:09 Room Air 06/16/23 03:49 Room Air 06/15/23 23:25 06/15/23 23:03 Room Air
[2023-06-16] MEDS: APIXABAN 5 MG TABLET PO SCH ×2 (08:30→20:27)
[2023-06-16] MEDS: MAGNESIUM OXIDE 400 MG TAB PO SCH (08:31)
[2023-06-16] MEDS: FINASTERIDE 5 MG TAB PO SCH (08:31)
[2023-06-16] MEDS: ATORVASTATIN 20 MG TAB PO SCH (08:31)
[2023-06-16] MEDS: METOPROLOL SUCC 50MG EXT REL TAB PO SCH ×2 (08:32→20:27)
[2023-06-16] MEDS: PANTOprazole 40 MG TAB PO SCH ×2 (08:33→20:27)
--- NOTE | 2023-06-16 13:12 | Surgery Progress Note ---
Date of Service June 16, 2023 Assessment & Plan (1) Diverticulitis: Plan: He is a little nervous to try regular food again. He wants to try full liquid again for dinner tonight and if tolerates we can try a low residue diet tomorrow for breakfast. recheck WBC in the morning Admission and Anticipated Discharge Date Admission Date: June 06, 2023 Subjective Patient seen. Overall doing okay. He continues to tolerate full liquid diet. Continues to have some mild suprapubic and left lower quadrant tenderness. He did not require any pain medication last night Physical Exam Physical Exam: Alert. No acute distress Abdomen is soft. Mild left lower quadrant tenderness. No guarding or peritoneal signs. Results & Data Vital Signs (Past 12 Hours) Vital Signs Temp Pulse Pulse Pulse Resp BP BP 06/16/23 10:40 36.7 C 82 24 117/78 06/16/23 09:23 93 H 127/79 06/16/23 07:15 06/16/23 07:00 98 H 06/16/23 07:09 36.8 C 101 H 20 135/88 06/16/23 03:49 36.7 C 96 H 14 127/88 Pulse Ox O2 Del Method 06/16/23 10:40 95 Room Air 06/16/23 09:23 06/16/23 07:15 Room Air 06/16/23 07:00 06/16/23 07:09 94 Room Air 06/16/23 03:49 96 Room Air PG Care Time/CCT Total # of Minutes Spent Total Time Spent with Patient: Total time spent is greater than 50% in coordination of care (as documented) at patient's floor/unit and/or counseling patient: Coding Level of Care Code 64239 Post Operative Follow-Up Diagnoses Diverticulitis K57.92
[2023-06-16] MEDS: ACETAMINOPHEN 325 MG TAB PO PRN (15:42)
[2023-06-16] MEDS: DIGOXIN 0.125 MG TAB PO SCH (15:43)
[2023-06-17] MEDS: PIPERACILLIN/TAZOBACTAM 4.5 GM in DEXTROSE 5% 100 ML IV SCH (06:16)
[2023-06-17 06:58] LABS: Basophils # (auto) 0.06 K/uL (0-0.2); Basophils % (auto) 0.6 %; Eosinophils # (auto) 0.15 K/uL (0-0.50); Eosinophils % (auto) 1.5 %; Hematocrit (blood only) 39.3 % (42.0-52.0); Hemoglobin 13.1 g/dl (14.0-18.0); Immature Granulocytes # (auto) 0.08 K/uL (0.01-0.20); Immature Granulocytes % (auto) 0.8 %; Lymphocytes # (auto) 1.08 K/uL (1.2-3.4); Lymphocytes % (auto) 10.6 %; Mean Corpuscular Hemoglobin 29.8 pg (25.0-34.0); Mean Corpuscular Hgb Conc 33.3 g/dL (32.0-36.0); Mean Corpuscular Volume 89.5 fL (80.0-100.0); Mean Platelet Volume 9.3 fL (9.4-12.4); Monocytes # (auto) 1.07 K/uL (0.11-0.59); Monocytes % (auto) 10.5 %; Neutrophils # (auto) 7.77 K/uL (1.40-6.50); Platelet Count 342 K/uL (130-400); RDW Coefficient of Variation 13.8 % (11.5-14.5); RDW Standard Deviation 45.1 fL (36.4-46.3); Red Blood Count 4.39 M/uL (4.70-6.10); White Blood Count 10.21 K/ul (4.8-10.8)
[2023-06-17 07:17] LABS: BUN Creatinine Ratio 9.5 (10-20); Calcium 8.8 mg/dl (8.6-10.3); Creatinine Clr Calc Pharmacy 120.4 ml/min; Est GFR (African American) 112.2 ml/min; Est GFR (Non-African American) 96.8 ml/min; Magnesium 1.9 mg/dl (1.7-2.4); Phosphorus 2.1 mg/dl (2.5-4.9); Potassium 4.1 mmol/L (3.5-5.1)
[2023-06-17 07:24] LABS: Partial Thromboplastin Time 28.9 Seconds (21.0-31.0)
[2023-06-17] MEDS: METOPROLOL SUCC 50MG EXT REL TAB PO SCH ×2 (08:22→20:42)
[2023-06-17] MEDS: ATORVASTATIN 20 MG TAB PO SCH (08:23)
[2023-06-17] MEDS: MAGNESIUM OXIDE 400 MG TAB PO SCH (08:23)
[2023-06-17] MEDS: PANTOprazole 40 MG TAB PO SCH ×2 (08:23→20:42)
[2023-06-17] MEDS: APIXABAN 5 MG TABLET PO SCH ×2 (08:23→20:44)
[2023-06-17] MEDS: FINASTERIDE 5 MG TAB PO SCH (08:23)
--- NOTE | 2023-06-17 08:53 | Surgery Progress Note ---
Date of Service June 17, 2023 Assessment & Plan (1) Perforation of sigmoid colon due to diverticulitis: Plan: Doing okay clinically. WBC still within normal limits and he is afebrile. We will change to oral antibiotics. If he does well today could consider discharge tomorrow morning. Admission and Anticipated Discharge Date Admission Date: June 06, 2023 Subjective Patient seen. No complaints. He did not need any pain medication last night again. He tolerated a low fiber diet this morning and so far so good. Physical Exam Physical Exam: Alert. No acute distress Abdomen is soft with mild suprapubic tenderness. No peritoneal signs Results & Data Vital Signs (Past 12 Hours) Vital Signs Temp Pulse Resp BP Pulse Ox O2 Del Method 06/17/23 07:33 36.8 C 75 21 138/99 96 Room Air 06/17/23 03:46 36.7 C 77 18 112/80 96 Room Air 06/16/23 23:17 36.9 C 99 H 14 114/75 95 Room Air PG Care Time/CCT Total # of Minutes Spent Total Time Spent with Patient: Total time spent is greater than 50% in coordination of care (as documented) at patient's floor/unit and/or counseling patient: Coding Level of Care Code 71414 Post Operative Follow-Up Diagnoses Perforation of sigmoid colon due to diverticulitis K57.20
[2023-06-17] MEDS: POT PHOSPHATE MONOBASIC W/ SOD TAB PO SCH ×3 (13:09→20:44)
--- NOTE | 2023-06-17 16:15 | Hospitalist Progress Note ---
Date of Service June 17, 2023 Assessment & Plan (1) Perforation of sigmoid colon due to diverticulitis: Plan 67 year old man with paroxysmal afib, HTN, HLD, iron deficiency anemia, diverticulosis, BPH who underwent recent open right inguinal hernia repair with mesh on April 15, 2023 presented with worsening abd pain and found to have perforated acute sigmoid diverticulitis. He is being managed for the following: Perforation of sigmoid colon due to diverticulitis Sepsis POA: Tachycardia and leukocytosis at presentation, normal lactate at presentation. Admitting CTAP consistent with perforated acute sigmoid diverticulitis. Associated large pocket of gas and fluid within the mesentery which extends for 9.4 cm consistent with a contained perforation. This contains only a small amount of fluid at this time. No rim enhancement. Left nephrolithiasis and multiple bladder calculi. No ureteral calculi. No hydronephrosis. Several renal cysts. Status post diagnostic laparoscopy with abdominal washout and drain placement 06/06/2023. Difficulty with Orozco placement in OR necessitating intraoperative urology consult who did cystoscopy and Orozco placement. Patient tolerating full liquid diet well, is moving bowel, reports feeling better. Patient's abdominal drain removed 06/12/2023 per surgery. General surgery on board, appreciate recommendation, plan to continue with IV Zosyn with a plan to transition to oral antibiotic to complete 14-day course. Diet advancement per surgery. Antibiotics switched to oral. Paroxysmal A-fib: Has h/o Afib on aspirin. Went into A-fib RVR postoperatively. Maintain K and Mg greater than 4 and 2 respectively. Cardizem drip discontinued. Status post loading dose of digoxin, currently on maintenance dose of digoxin. Status post heparin drip, currently on p.o. Eliquis. Patient received free-coupon for first month of Eliquis. Will DC aspirin. Cardiology on board, managing beta-kiley and digoxin. Appreciate recommendation. Rate getting better. Hypertension: Fairly stable, lisinopril off, may restart at 5 mg daily if SBP consistently above 140 mmHg. Likely Acid Peptic Disease: Pt w/ chronic bloating symptoms, relieved partially with Pepcid, will put on PPI from today and prn simethicone. Might benefit from OP GI eval. Bladder calculi Benign localized prostatic hyperplasia with LUTS Urology evaluated, status post cystoscopy in OR and found to have a bladder neck contracture with embedded bladder stone Orozco removed 06/12, patient voiding with no problems, patient reports passing stones without pain. Continue with home finasteride, follow-up with urology on discharge. Hypophosphatemia/hypomagnesemia: Monitor and replete as appropriate Anemia: Hemoglobin stable. DVT prophylaxis: Eliquis CODE STATUS: Full code Disposition: Likely discharge tomorrow. Admission and Anticipated Discharge Date Admission Date: June 06, 2023 Subjective Patient seen and examined at bedside as a follow-up of perforation of sigmoid colon due to diverticulitis status post diagnostic laparoscopy with abdominal washout and drain placement. Patient was lying in bed, on room air, NAD, has been tolerating full liquids diet, had better pain control and did not require any pain medication last night. Patient's diet advanced to low fiber diet. Surgery on board, diet advancement and transition to oral antibiotics per surgery recommendation. Patient reports continued improvement in his bloating symptoms. We will continue PPI. Patient reports moving stool, moving gas, denies nausea or vomiting. Physical Exam Physical Exam: GENERAL: Alert and oriented x3. NAD, on RA. HEENT: No pallor, no icterus. Pupils equal, round and reactive to light. Oral mucosa moist. NECK: No JVD, no neck masses. HEART: S1 and S2 heard. irregular rate and rhythm, tachycardic. No murmur, no gallop. RESPIRATORY SYSTEM: Normal AP diameter. No accessory muscle use. No wheezing, no crackles. ABDOMEN: Soft, bowel sounds present, no distention. LLQ tenderness improved CENTRAL NERVOUS SYSTEM: No facial droop. Speech is clear. Obeys simple commands. Moves extremities. EXTREMITIES: No edema, no erythema seen. Results & Data Results & Data Vital Signs (Past 12 Hours) Vital Signs Temp Pulse Pulse Resp BP Pulse Ox O2 Del Method 06/17/23 10:30 36.5 C 91 H 21 124/86 93 Room Air 06/17/23 07:00 87 06/17/23 07:33 36.8 C 75 21 138/99 96 Room Air
[2023-06-17] MEDS: AMOXICILLIN/CLAVULANATE 875 MG TAB PO SCH (16:53)
[2023-06-17] MEDS: DIGOXIN 0.125 MG TAB PO SCH (16:53)
[2023-06-18] MEDS: POT PHOSPHATE MONOBASIC W/ SOD TAB PO SCH (08:18)
[2023-06-18] MEDS: ATORVASTATIN 20 MG TAB PO SCH (08:18)
[2023-06-18] MEDS: AMOXICILLIN/CLAVULANATE 875 MG TAB PO SCH (08:19)
[2023-06-18] MEDS: APIXABAN 5 MG TABLET PO SCH (08:19)
[2023-06-18] MEDS: PANTOprazole 40 MG TAB PO SCH (08:19)
[2023-06-18] MEDS: METOPROLOL SUCC 50MG EXT REL TAB PO SCH (08:19)
[2023-06-18] MEDS: FINASTERIDE 5 MG TAB PO SCH (08:20)
[2023-06-18] MEDS: MAGNESIUM OXIDE 400 MG TAB PO SCH (08:20)
--- NOTE | 2023-06-18 08:28 | Surgery Progress Note ---
Date of Service June 18, 2023 Assessment & Plan (1) Perforation of sigmoid colon due to diverticulitis: Plan: Patient is s/p diagnostic lap with washout and drain placement He is doing well, WBC has been normal, vitals stable and patient afebrile He is tolerating a low fiber diet and having + bowel function Was transitioned to po abx yesterday, would continue po abx for 2 weeks Stable for discharge from our standpoing. Dispo instructions reviewed with pt Recommend f/u with Dr. Paredes in 2 weeks for check up Admission and Anticipated Discharge Date Admission Date: June 06, 2023 Subjective Patient reports he is doing well and ready to go home. Pain controlled. He is tolerating a diet. Continues to pass flatus and BMs Physical Exam Physical Exam: awake/alert Gastrointestinal (Abdomen): Inspection/Auscultation: + abdominal surgical incision (c/d/i; no signs of infection); abdomen not distended Percussion/Palpation: + abdomen tender (mild llq discomfort to palpation) and abdomen soft Results & Data Vital Signs (Past 12 Hours) Vital Signs Temp Pulse Resp BP BP Pulse Ox O2 Del Method 06/18/23 07:45 36.7 C 77 21 137/94 94 Room Air 06/18/23 03:00 36.9 C 86 18 123/80 93 Room Air 06/17/23 23:00 36.7 C 99 H 18 119/85 96 Room Air PG Care Time/CCT Total # of Minutes Spent Total Time Spent with Patient: Total time spent is greater than 50% in coordination of care (as documented) at patient's floor/unit and/or counseling patient: Coding Level of Care Code 63815 Post Operative Follow-Up Diagnoses Perforation of sigmoid colon due to diverticulitis K57.20
[2023-06-18] MEDS ORDERED: ADVANCED PROBIOTIC 1250 MG CAPSULE PO SCH (09:00)
--- NOTE | 2023-06-18 12:21 | Discharge Summary ---
Date of Service June 18, 2023 Admission HPI Per Admitting Provider This is a 67-year-old male with paroxysmal afib, HTN, HLD, iron deficiency anemia, diverticulosis, BPH who underwent recent open right inguinal hernia repair with mesh on April 15, 2023. He presents to the ER with worsening abdominal pain which started Saturday night. Pt thought this was a kidney stone as it was in the LLQ pain, but then radiated over to the RLQ. He has been having intermittent constipation, treating it with stool softeners, Metamucil and laxatives due to taking oxycodone for pain. He had multiple small bowel movements earlier this week, and on Saturday had large bowel movement with use of stool softener/laxative, he describes increasing bloating and discomfort on Saturday night, and continued pain came to the ER. He had a headache in the past day, admits to having generalized malaise, weakness, some chills but no fevers. Pt admits to having diarrhea since having the large movement on Saturday. Denies any dark tarry stools or BRBPR at this time. Pt also admits to having darkened urine, increased frequency every 2 hours, no dysuria and no obvious hematuria. Last diverticulitis 8-10years ago. Abdominal CT include findings consistent with perforated acute sigmoid diverticulitis. Associated large pocket of gas and fluid within the mesentery which extends for 9.4 cm consistent with a contained perforation. This contains only a small amount of fluid at this time. No rim enhancement. WBC is 12 8. His lactic acid is 1.7, patient has been given pain medication, 1 L of fluid and started on IV Zosyn. Admission Exam Per Admitting Provider General: awake, alert, no apparent distress Head: Normocephalic, atraumatic ENT: PERRL, EOMI, no pharyngeal exudate, mucous membranes moist Chest: Clear to auscultation, on room air, no adventitious breath sounds Cardiac: Sinus tachycardia, no murmur, no JVD, normal peripheral pulses, good capillary refill Abdominal: Hypoactive BS x 4 quadrants, + distended, + tenderness in the LLQ, no rebound or guarding Extremities: Normal inspection, no peripheral edema or erythema, calfs nontender to palpation Psych: Normal mood and affect Neuro: AAO x 3, strength intact bilaterally and rated 5/5, no motor deficits, speech is clear, no peripheral sensory deficits Principal Diagnosis diagnostic laparoscopy, abdominal washout for perforated sigmoid diverticulitis Sepsis POA Paroxysmal A-fib Discharge Exam GENERAL: Alert and oriented x3. NAD, on RA. HEENT: No pallor, no icterus. Pupils equal, round and reactive to light. Oral mucosa moist. NECK: No JVD, no neck masses. HEART: S1 and S2 heard. irregular rate and rhythm, tachycardic. No murmur, no gallop. RESPIRATORY SYSTEM: Normal AP diameter. No accessory muscle use. No wheezing, no crackles. ABDOMEN: Soft, bowel sounds present, no distention. LLQ tenderness improved CENTRAL NERVOUS SYSTEM: No facial droop. Speech is clear. Obeys simple commands. Moves extremities. EXTREMITIES: No edema, no erythema seen. Discharge Data Allergies Allergy/AdvReac Type Severity Reaction Status Date / Time codeine Allergy Intermediate Swelling Verified 04/15/23 09:24 at injection site (see comments) Consultations 06/06/23 09:55 ED Decision to Admit Stat 06/06/23 10:44 Consult General Surgery Routine 06/06/23 16:59 Consult Urology Routine 06/09/23 06:36 Consult Cardiology Routine Procedures Performed Operation Date: 06/06/23 10:35 Actual Procedures p Exploratory Laparoscopy, Abdominal Washout, Drain Insertion, lysis of adhesions. - Roberto Paredes DO s Cystoscopy, ureteral dilation, sanchez insertion. - Elias Damon MD Ordered Studies 06/06/23 07:30 CT abd pelvis IV con only Stat 06/14/23 08:15 CT Abd and Pelvis [CT abd pelvis IV con only] Routine Hospital Course (1) Perforation of sigmoid colon due to diverticulitis: Plan 67 year old man with paroxysmal afib, HTN, HLD, iron deficiency anemia, diverticulosis, BPH who underwent recent open right inguinal hernia repair with mesh on April 15, 2023 presented with worsening abd pain and found to have perforated acute sigmoid diverticulitis. He was managed for the following: Perforation of sigmoid colon due to diverticulitis Sepsis POA: Tachycardia and leukocytosis at presentation, normal lactate at presentation. Admitting CTAP consistent with perforated acute sigmoid diverticulitis. Associated large pocket of gas and fluid within the mesentery which extends for 9.4 cm consistent with a contained perforation. This contains only a small amount of fluid at this time. No rim enhancement. Left nephrolithiasis and multiple bladder calculi. No ureteral calculi. No hydronephrosis. Several renal cysts. Status post diagnostic laparoscopy with abdominal washout and drain placement 06/06/2023. Difficulty with Sanchez placement in OR necessitating intraoperative urology consult who did cystoscopy and Sanchez placement. Patient tolerating low fiber diet, no abdominal pain, is moving gas and bowels. Patient's abdominal drain removed 06/12/2023 per surgery. General surgery on board, appreciate recommendation, plan to continue with IV Zosyn with a plan to transition to oral antibiotic to complete 14-day course. Patient being discharged on oral antibiotics to complete the course. Patient to follow-up with surgery in 2 weeks time upon discharge. Paroxysmal A-fib: Has h/o Afib on aspirin. Went into A-fib RVR postoperatively. Maintain K and Mg greater than 4 and 2 respectively. Cardizem drip discontinued. Status post loading dose of digoxin, currently on maintenance dose of digoxin. Status post heparin drip, currently on p.o. Eliquis. Patient received free-coupon for first month of Eliquis. Will DC aspirin. Cardiology on board, managing beta-kiley and digoxin. Appreciate recommendation. Medication changes has been discussed with the patient. Rate getting better. Hypertension: Fairly stable, lisinopril off, may restart at 5 mg daily if SBP consistently above 140 mmHg. Likely Acid Peptic Disease: Pt w/ chronic bloating symptoms, continue with PPI and OTC as needed simethicone. Might benefit from OP GI eval. Bladder calculi Benign localized prostatic hyperplasia with LUTS Urology evaluated, status post cystoscopy in OR and found to have a bladder neck contracture with embedded bladder stone Sanchez removed 06/12, patient voiding with no problems, patient reports passing stones without pain. Continue with home finasteride, follow-up with urology on discharge. Hypophosphatemia/hypomagnesemia: Monitor and replete as appropriate Anemia: Hemoglobin stable. DVT prophylaxis: Eliquis CODE STATUS: Full code Patient being discharged home with following instruction at the point of discharge: Follow-up with your primary care physician within a week time and likely you will need labs CBC/CMP/magnesium/phosphorus. For your perforated diverticulitis, you will be discharged on antibiotic to complete 14-day course. Follow-up with your surgeon in 2 weeks time upon discharge. Maintain low fiber diet and activity as recommended by surgery. For your atrial fibrillation, your aspirin has been discontinued and you are started on Eliquis. Your metoprolol dose has been optimized, you have been started on digoxin. Because these medications were added, these affected your blood pressure/brought your blood pressure down and hence your lisinopril has been discontinued. For your likely acid peptic disease, you are started on pantoprazole twice a day, take it for 4 weeks. Then once a day thereafter. You might benefit from evaluation with a GI doctor as an outpatient, coordinate with your PCP office for referral. For your bladder calculi/stones, you will need to set up an outpatient visit with urology. Please make sure that you are able to get your medications today by calling your pharmacy before you leave the hospital so that your treatment continuity is not broken. Home Health Attestation I certify that this patient is under my care and that I, or a physicians service assistant working with me, had a face to-face encounter that meets the home health [id number] encounter requirements with this patient. The encounter with the patient was in whole, or in part, for the following medical condition, which is the primary reason for home health care (list medical condition): I certify that, based on my findings, the following services are medically necessary home health services: My clinical findings support the need for the above services because: Further, I certify that my clinical findings support that this patient is homebound (i.e. absences from home require considerable and taxing effort and are for medical reasons or restoration services or infrequently or of short duration when for other reasons) because: Certification for Home Health Services: Based on the above findings, I certify that this patient is confined to the home and needs intermittent nursing home care, physical therapy and/or speech therapy or continues to need occupational therapy. The patient is under my care, and I have initiated the establishment of the plan of care. This patient will be followed by a physician who will periodically review the plan of care. Total Time Total Time Spent Total Time Spent (In Minutes): 45 Discharge Plan Discharge Items Patient Disposition: Home - Self-Care Reason For Visit: PERFORATED DIVERTICULITIS Discharge Diagnosis: diagnostic laparoscopy, abdominal washout for perforated sigmoid diverticulitis Sepsis POA Paroxysmal A-fib Activity: Per Instructions section Lifting: No more than 10 pounds Bathing Comment: may shower; no soaking in tubs/pools x 2 weeks Exercise/Sports: Wait until after follow-up appointment Driving/Machine Use: no driving while taking narcotics for pain Non-emergency contact: Primary Care Provider and Surgeon Call non-emergency contact if: you have any medication questions, your pain is worsening, your pain is unusual for you, you have a fever, your temperature is above 101.5, your wound has increased redness, your wound has increased drainage and your wound pain has increased Follow-up/Referrals: Crissy Dejesus PA-C [Physician Exhibit Electrician] - (Date & Time 07/05/2023 3:00 PM Provider Crissy Dejesus PA-C Department Cardiology, [facility] ) Roberto Paredes DO [Physician] - (Please call to schedule follow up in clinic within 2 weeks ) Yuval Hammonds MD [Primary Care Provider] - (Date & Time 06/24/2023 11:00 AM Provider Yuval Hammonds MD Department Family Practice [facility] ) Diet: Low Fiber Addtl Attending Provider Instructions: You may purchase Tylenol over the counter if needed for additional pain control over the next few days. Take per manufacturers instructions Addtl Application Support Intern Provider Instructions: Follow-up with your primary care physician within a week time and likely you will need labs CBC/CMP/magnesium/phosphorus. For your perforated diverticulitis, you will be discharged on antibiotic to complete 14-day course. Follow-up with your surgeon in 2 weeks time upon discharge. Maintain low fiber diet and activity as recommended by surgery. For your atrial fibrillation, your aspirin has been discontinued and you are started on Eliquis. Your metoprolol dose has been optimized, you have been started on digoxin. Because these medications were added, these affected your blood pressure/brought your blood pressure down and hence your lisinopril has been discontinued. For your likely acid peptic disease, you are started on pantoprazole twice a day, take it for 4 weeks. Then once a day thereafter. You might benefit from evaluation with a GI doctor as an outpatient, coordinate with your PCP office for referral. For your bladder calculi/stones, you will need to set up an outpatient visit with urology. Please make sure that you are able to get your medications today by calling your pharmacy before you leave the hospital so that your treatment continuity is not broken. Pending Studies at Discharge: No Stand-Alone Forms: My [facility], Smoking Cessation Medications and DC Order Prescriptions: New Eliquis 5 mg tablet 5 mg PO BID Qty: 60 0RF oxycodone 5 mg tablet 5 - 10 mg PO .[id number] PRN (Reason: pain, for initial therapy, max 6 tabs per day) Qty: 10 0RF amoxicillin-pot clavulanate 875-125 mg Tablet 1 tab PO BIDM 5 Days Qty: 10 0RF digoxin [Digitek] 125 mcg (0.125 mg) Tablet 0.125 mg PO DAILY@1600 Qty: 60 0RF metoprolol succinate 200 mg tablet extended release 24 hr 200 mg PO BID Qty: 60 0RF acetaminophen 325 mg Tablet 650 mg PO Q6H PRN (Reason: pain) Qty: 30 0RF Advanced Probiotic 625 mg (10 billion cell) Capsule 2 cap PO DAILY 10 Days Qty: 20 0RF magnesium oxide 400 mg (241.3 mg magnesium) Tablet 400 mg PO QAM Qty: 60 0RF pantoprazole 40 mg Tablet,Delayed Release (Dr/Ec) 40 mg PO BID Qty: 60 0RF Continued multivitamin Tablet 1 tab PO QAM atorvastatin 20 mg Tablet 20 mg PO QAM omega 3-tbo-abp-fish oil [Fish Oil] 1,000 mg (120 mg-180 mg) Capsule 1 cap PO QAM fluticasone propionate 50 mcg/actuation [place],Suspension 2 spray INTRANASAL DAILY PRN (Reason: Congestion) potassium citrate 10 mEq (1,080 mg) tablet extended release 10 meq PO BID naproxen sodium [Aleve] 220 mg Capsule 220 mg PO BID PRN (Reason: Pain) psyllium husk [Metamucil] 0.4 gram Capsule 0.8 g PO QAM finasteride 5 mg Tablet 5 mg PO QAM Held ferrous sulfate [iron] 325 mg (65 mg iron) tablet 325 mg PO BID Hold Instructions: Resume on 07/23/23. Patient Comments: AM Discontinued lisinopril [Zestril] 5 mg tablet 5 mg PO QAM aspirin 81 mg tablet,delayed release (DR/EC) 81 mg PO QAM metoprolol tartrate 25 mg Tablet 25 mg PO BID Qty: 60 0RF Discharge Orders: Discharge Order (Routine); Ordered 06/18/23 Ordered By: Sachi Owusu Admission Data Admit Date/Time: 06/06/23 10:16 Attending Provider: Sachi Owusu Admit Provider: Lynda Ardon Primary Care Provider: Yuval Hammonds Other Providers: Lynda Ardon ; Roberto Paredes ; Elias Damon
--- NOTE | 2023-06-19 08:52 | Coding Query ---
CODING QUERY To promote full compliance with coding requirements relating to patient care, provider participation is requested in all cases of inpatient coder uncertainty. Please assist us with the question(s) below: Coding Question(s): The Operative Report documents Lysis of adhesions. Please specify below, in your clinical opinion, regarding the adhesions and lysis of adhesions: ( ) there were significant adhesions and the lysis of adhesions significantly increased the difficulty of performing the operative procedure ( x ) the adhesions were not significant and did not significantly increase the difficulty of performing the operative procedure Physician's Response(s): Thank you Lois Pablo Principal Diagnosis: "that condition established after study, to be chiefly responsible for occasioning the admission of the patient to the hospital for care." Co-Existing Principal Diagnosis: "when two or more diagnoses equally meet the criteria for principal diagnosis as determined by the circumstances of admission, diagnostic work up, and/or therapy provided, and the Alphabetic Index, Tabular List, or another coding guideline does not provide sequencing direction, any one of the diagnoses may be sequenced first." "When the physician has documented what appears to be a current diagnosis in the body of the record, but has not included the diagnosis in the final diagnostic statement, the physician should be asked whether the diagnosis should be added." (Source Coding Clinic 2 QTR90. p3-4) GENIE
--- NOTE | 2023-06-19 09:32 | Coding Query ---
CODING QUERY To promote full compliance with coding requirements relating to patient care, provider participation is requested in all cases of refurbish technician uncertainty. Please assist us with the question(s) below: Coding Question(s): Sepsis POA is documented in the record. Please specify below, in your clinical opinion, the most likely source of Sepsis: (x ) Sepsis POA, is most likely due to Perforated Sigmoid Diverticulitis ( ) Sepsis POA, is most likely due to Other: Please Specify ( ) Sepsis POA, is most likely due to unknown source Physician's Response(s): Thank you Lois Pablo Principal Diagnosis: "that condition established after study, to be chiefly responsible for occasioning the admission of the patient to the hospital for care." Co-Existing Principal Diagnosis: "when two or more diagnoses equally meet the criteria for principal diagnosis as determined by the circumstances of admission, diagnostic work up, and/or therapy provided, and the Alphabetic Index, Tabular List, or another coding guideline does not provide sequencing direction, any one of the diagnoses may be sequenced first." "When the physician has documented what appears to be a current diagnosis in the body of the record, but has not included the diagnosis in the final diagnostic statement, the physician should be asked whether the diagnosis should be added." (Source Coding Clinic 2 QTR90. p3-4) GENIE
== END 2023-06-18 14:55 | disposition home or self-care (01) | DRG 872 ==
LOC: ED 07:12 → EDINP 10:16 → SUATTDRO 10:16 → EDINP 12:23 → 2W 16:36 → 1E 06-09 06:35 → EDINP 06-12 15:15 → 2S 06-12 15:15 → EDINP 06-13 17:23